=== PATIENT | male | born 1960 | race Two or more races ===

== ENCOUNTER 2017-04-19 23:43 | Inpatient (IN) | payer MEDICARE, OTHER ==
[~2017-04-19] VITALS: Ht 167.6 cm; Wt 72.1 kg
[~2017-04-19 23:43] MED LIST: ACETAMINOP500 MG/51 ORAL; ASPIR 8181 MG ORAL; ASPIRIN EC325 MG ORAL; ATORVASTATIN CA10 MG ORAL; AZITHROMYCIN500 M3 IVPB; BENADRYL ALLERG25 M1 PO; BENADRYL25 M3 PO; BETHANECHOL CHL25 MG ORAL; CALCIUM 500 MG1 EAC1 PO; CATAPRES0.2 MG ORAL; CELLCEPT250 MG ORAL; DIABETA2.5 MG ORAL; DILANTIN100 MG ORAL; DOCUSATE SODIU100 MG ORAL; FUROSEMIDE40 MG ORAL; GENGRAF PO; GENGRAF100 MG PO; GLYBURIDE5 MG PO; HYDRALAZINE HCL25 M1 ORAL; IMDUR30 MG ORAL; ISOSORBIDE MONO30 M1 PO; LACTULOSE20 GM/301 ORAL; LEVETIRACETAM250 MG PO; LIPITOR20 MG ORAL; LYRICA50 MG ORAL; LYRICA75 M1 ORAL; METOPROLOL TART50 M1 ORAL; NIFEDIPINE ER60 M3 ORAL; NORCO 5-325 TA1 EAC1 ORAL; NOVOLIN R100 UNIT/1 SUBQ; PERCOCET 5-3251 EACH ORAL; PLAVIX75 MG ORAL; POTASSIUM CHLO20 ME3 PO; PREDNISONE2.5 MG ORAL; PREDNISONE20 M1 PO; PROSCAR5 MG ORAL; PROTONIX40 MG ORAL; RISPERIDONE1 MG ORAL; ROCEPHIN 11 GM/50 ML IVPB; TAMSULOSIN HCL0.4 MG ORAL; TRAMADOL HCL50 MG ORAL; TYLENOL650 MG/20. ORAL; ULORIC40 MG ORAL; XARELTO10 MG ORAL
[2017-04-19 23:45] VITALS: BP 138/75
[2017-04-20] VITALS (8 sets, daily range): BP systolic 100–151; BP diastolic 51–87
[2017-04-20 00:28] LABS: ABG PCO2 35.4 mmHg (35.0-45.0)
[2017-04-20 00:29] LABS: ABG ALLEN TEST POSITIVE; ABG BASE EXCESS 1.9
[2017-04-20 01:22] LABS: APPEARANCE,URINE CLEAR; KETONES,URINE NEGATIVE (NEGATIVE); LEUKOCYTE ESTERASE ,URINE 2+ (NEGATIVE); NITRITE,URINE NEGATIVE (NEGATIVE); PH,URINE 5 (4.5-8.0); PROTEIN,URINE 1+ (NEGATIVE); UROBILINOGEN,URINE NORMAL MG/DL (0.0-1.0)
[2017-04-20 01:29] LABS: BASOPHILS % (AUTO) 0.7 % (0.0-2.0); LYMPHOCYTES % (AUTO) 10.7 % (20.0-45.0); MEAN CORPUSCULAR HEMOGLOBIN 29.3 PG (27.0-31.0); MEAN CORPUSCULAR VOLUME 89 FL (80-99); MEAN PLATELET VOLUME 12.2 FL (6.5-10.1); MONOCYTES % (AUTO) 5.8 % (1.0-10.0); NEUTROPHILS % (AUTO) 82.8 % (45.0-75.0); PLATELET COUNT 157 K/UL (150-450); RED BLOOD COUNT 4.66 M/UL (4.70-6.10); RED CELL DISTRIBUTION WIDTH 17.7 % (11.6-14.8); WHITE BLOOD COUNT 15.1 K/UL (4.8-10.8)
[2017-04-20 01:41] LABS: ALBUMIN/GLOBULIN RATIO 1.1 (1.0-2.7); CALCIUM 9.3 mg/dL (8.6-10.2); GLOMERULAR FILTRATION RATE 34.5 mL/min (>60); POTASSIUM 5.2 mEQ/L (3.4-4.9); TOTAL PROTEIN 8.1 g/dL (6.6-8.7)
[2017-04-20 01:43] LABS: TROPONIN I < 0.30 ng/mL (<=0.30)
[2017-04-20 01:44] LABS: BACTERIA,URINE FEW /HPF; RBC,URINE 0-2 /HPF (0 - 0); YEAST,URINE MANY /HPF
[2017-04-20 01:49] LABS: REFLEX LACTIC ACID YES OR NO YES
[2017-04-20] MEDS ORDERED: AMLODIPINE BESYL5 MG ORAL (01:49)
[2017-04-20] MEDS ORDERED: CYCLOSPORINE50 MG PO (01:49)
[2017-04-20] MEDS ORDERED: TUMS200 M1 PO (01:49)
[2017-04-20] MEDS ORDERED: LANTUS SOL100 UNIT/1 SUBQ (01:51)
[2017-04-20 01:52] LABS: CKMB 1.8 ng/mL (< 6.7)
[2017-04-20] MEDS ORDERED: HUMALOG100 UNIT/1 SUBQ (01:52)
[2017-04-20] MEDS ORDERED: LACTULOSE20 GM/301 ORAL (01:56)
[2017-04-20] MEDS ORDERED: LEVETIRACETAM250 MG PO (01:56)
[2017-04-20] MEDS ORDERED: SEN-O-TAB8.6 MG ORAL (02:00)
[2017-04-20] MEDS ORDERED: URECHOLINE25 M1 ORAL (02:00)
[2017-04-20] MEDS ORDERED: Sodium Polystyrene Sulfonate 15gm Powder ORAL ONE (02:00)
[2017-04-20] MEDS ORDERED: RENVELA800 MG ORAL (02:00)
[2017-04-20] MEDS ORDERED: ACETAMINOPHEN325 M1 ORAL (02:01)
[2017-04-20] MEDS ORDERED: BISACODYL10 M1 RC (02:02)
[2017-04-20] MEDS ORDERED: DIPHENHYDRAMINE25 M1 ORAL (02:06)
[2017-04-20] MEDS ORDERED: MIRALAX17 GM ORAL (02:10)
[2017-04-20] MEDS ORDERED: SIMETHICONE80 MG ORAL (02:10)
--- NOTE | 2017-04-20 03:14 | Emergency Room Report ---
History of Present Illness General Chief Complaint: Dyspnea/Respdistress Source: Patient, Medical Record Present Illness HPI 48-year-old male presents ED for shortness of breath. Patient states he feels okay however EMS states that started tonight patient's family noticed increased work of breathing. O2 saturations were in the 80s. EMS noted crackles in both lung tellez. patient states he was recently treated for pneumonia. Denies any fevers or chills. Denies chest pain. No other aggravating or relieving factors. Denies any other associated symptoms Allergies: Coded Allergies: PENICILLINS (Unverified Allergy, Unknown, 04/17/16) Patient History Past Medical History: DM, HTN Past Surgical History: other - RLE amputation Pertinent Family History: none Social History: Denies: alcohol use, drug use, smoking Immunizations: UTD Reviewed Nursing Documentation: PMH: Agreed, PSxH: Agreed Nursing Documentation-PMH Past Medical History: No History, Except For Hx Cardiac Problems: Yes Hx Hypertension: Yes Hx Diabetes: Yes Hx Cancer: No Hx Gastrointestinal Problems: Yes - Amputed RLE Hx Neurological Problems: Yes Hx Seizures: Yes Hx Dizziness: Yes Hx Weakness: Yes Review of Systems All Other Systems: negative except mentioned in HPI Physical Exam Vital Signs Date Time Temp Pulse Resp B/P Pulse Ox O2 Delivery O2 Flow Rate FiO2 04/19/17 23:42 99.0 77 28 140/79 97 Non-Rebreather 15.0 Sp02 EP Interpretation: reviewed, normal General Appearance: no apparent distress, alert, GCS 15, non-toxic Head: normocephalic Eyes: bilateral eye PERRL, bilateral eye normal inspection ENT: normal ENT inspection Neck: normal inspection Respiratory: crackles Cardiovascular #1: regular rate, rhythm, no edema Gastrointestinal: normal inspection Rectal: deferred Genitourinary: no CVA tenderness Musculoskeletal: normal inspection Neurologic: alert, oriented x3, responsive, motor strength/tone normal, sensory intact, speech normal Psychiatric: normal inspection Skin: normal inspection Lymphatic: normal inspection Medical Decision Making Diagnostic Impression: Primary Impression: CHF exacerbation Qualified Codes: I50.9 - Heart failure, unspecified Additional Impressions: Renal insufficiency Hyperkalemia ER Course Hospital Course 56-year-old male presents ED complaining of shortness of breath, hypoxicon room air Differential diagnoses include: TN/unstable angina, contusion, muscle strain, PTX, rib fracture Clinical course Patient placed on stretcher. 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 After initial history and physical I ordered labs, EKG, chest x-ray labs reviewed- no leukocytosis, hemoglobin/hematocrit stable, BUN/creatinine elevated, troponins negative, BNP elevated, K 5.2 Chest x-ray- pulmonary congestion, cardiomegaly. ? infiltrate EKG - NSR, peaked twaves in anterior leads interpreted by me kayexelate given. Antibiotics given. Lasix given. Case discussed with Dr. Caal and he agreed to accept the patient to his service for further care and support I. I feel this is a highly complex case requiring extensive working including EKG/Rhythm strip, Xray/CT/US, Blood/urine lab work, repeat exams while in ED, and administration of strong opiates/narcotics for pain control, admission to hospital or close patient follow up. Diagnosis - CHF exacerbation, renal failuere, hyperkalemia admitted to telemetry in serious condition Labs Test 04/20/17 00:15 04/20/17 00:50 04/20/17 01:00 04/20/17 02:00 Arterial Blood pH 7.414 (7.350-7.450) Arterial Blood Partial Pressure CO2 35.4 mmHg (35.0-45.0) Arterial Blood Partial Pressure O2 82.8 mmHg (75.0-100.0) Arterial Blood HCO3 22.1 mmol/L (22.0-26.0) Arterial Blood Oxygen Saturation 95.5 % (92.0-98.0) Arterial Blood Base Excess 1.9 Shai Test Positive Urine Color Pale yellow Urine Appearance Clear Urine pH 5 (4.5-8.0) Urine Specific [place] 1.005 (1.005-1.035) Urine Protein 1+ (NEGATIVE) Urine Glucose (UA) Negative (NEGATIVE) Urine Ketones Negative (NEGATIVE) Urine Occult Blood Negative (NEGATIVE) Urine Nitrite Negative (NEGATIVE) Urine Bilirubin Negative (NEGATIVE) Urine Urobilinogen Normal MG/DL (0.0-1.0) Urine Leukocyte Esterase 2+ (NEGATIVE) Urine RBC 0-2 /HPF (0 - 0) Urine WBC 5-10 /HPF (0 - 0) Urine Squamous Epithelial Cells None /LPF (NONE/OCC) Urine Bacteria Few /HPF (NONE) Urine Yeast Many /HPF (NONE) White Blood Count 15.1 K/UL (4.8-10.8) Red Blood Count 4.66 M/UL (4.70-6.10) Hemoglobin 13.6 G/DL (14.2-18.0) Hematocrit 41.3 % (42.0-52.0) Mean Corpuscular Volume 89 FL (80-99) Mean Corpuscular Hemoglobin 29.3 PG (27.0-31.0) Mean Corpuscular Hemoglobin Concent 33.0 G/DL (32.0-36.0) Red Cell Distribution Width 17.7 % (11.6-14.8) Platelet Count 157 K/UL (150-450) Mean Platelet Volume 12.2 FL (6.5-10.1) Neutrophils (%) (Auto) 82.8 % (45.0-75.0) Lymphocytes (%) (Auto) 10.7 % (20.0-45.0) Monocytes (%) (Auto) 5.8 % (1.0-10.0) Eosinophils (%) (Auto) 0.0 % (0.0-3.0) Basophils (%) (Auto) 0.7 % (0.0-2.0) Sodium Level 134 mEQ/L (135-145) Potassium Level 5.2 mEQ/L (3.4-4.9) Chloride Level 94 mEQ/L (98-107) Carbon Dioxide Level 21 mEQ/L (20-30) Anion Gap 19 (5-15) Blood Urea Nitrogen 54 mg/dL (7-23) Creatinine 2.0 mg/dL (0.7-1.2) Estimat Glomerular Filtration Rate 34.5 mL/min (>60) Glucose Level 178 mg/dL (74-106) Lactic Acid Level 2.00 mmol/L (0.66-2.22) Calcium Level 9.3 mg/dL (8.6-10.2) Total Bilirubin 0.6 mg/dL (0.0-1.2) Aspartate Amino Transf (AST/SGOT) 18 U/L (5-40) Alanine Aminotransferase (ALT/SGPT) 9 U/L (3-41) Alkaline Phosphatase 83 U/L (40-129) Total Creatine Kinase 46 U/L (38-174) Creatine Kinase MB 1.8 ng/mL (< 6.7) Creatine Kinase MB Relative Index 3.9 Troponin I < 0.30 ng/mL (<=0.30) Pro-B-Type Natriuretic Peptide 74675 pg/mL (0-125) Total Protein 8.1 g/dL (6.6-8.7) Albumin 4.3 g/dL (3.5-5.2) Globulin 3.8 g/dL Albumin/Globulin Ratio 1.1 (1.0-2.7) EKG Diagnostic Results Rate: normal Rhythm: NSR ST Segments: other - peadked ASA given to the pt in ED: No Rhythm Strip Diag. Results EP Interpretation: yes Rhythm: NSR, no PVC's, no ectopy Chest X-Ray Diagnostic Results Chest X-Ray Ordered: Yes # of Views/Limited/Complete: 1 View EP Interpretation: Yes Interpretation: no pneumothorax, other - cardiomegaly. bilateral interstitial congestion. ? infiltrate Indication: Shortness of Breath Impression: Other - cardiomegaly. pulmonary congestion. infiltrate Interpreting ER Provider: Jmienez Rivero MD Last Vital Signs Date Time Temp Pulse Resp B/P Pulse Ox O2 Delivery O2 Flow Rate FiO2 04/20/17 01:15 99.0 77 28 140/79 98 Non-Rebreather 15.0 Status: improved Disposition: ADMITTED INPATIENT Condition: Serious Referrals: VICTOR MANUEL CAAL (PCP) JIMENEZ RIVERO M.D. Apr 20, 2017 03:14
--- NOTE | 2017-04-20 06:44 | Diagnostic Imaging Report ---
Indications: Shortness of breath Technique: Portable AP chest Findings: Comparison: 09/19/16 Cardiac silhouette remains enlarged. Pulmonary vascular redistribution, bilateral interstitial infiltrates have increased. Patchy ovular opacities have developed bilaterally. Blunting of the right costophrenic angle suggesting small pleural effusion has developed. Left costophrenic angle excluded from image. IMPRESSION: Substantial worsening of bilateral congestive changes Superimposed pneumonia not excludable
[2017-04-20] MEDS: Heparin 5000 units/ml inj SUBQ SCH ×2 (09:53→20:39)
[2017-04-20] MEDS: NovoLOG Insulin Flexpen SUBQ SCH ×4 (11:30→23:23)
[2017-04-20] MEDS ORDERED: Acetaminophen 650mg/20.3ml ORAL PRN (13:00)
[2017-04-20] MEDS: Aspirin EC 81mg tab ORAL SCH (14:34)
[2017-04-20] MEDS: PredniSONE 5mg tab ORAL SCH (14:35)
[2017-04-20] MEDS: Imdur 30mg tab ORAL SCH (14:35)
[2017-04-20] MEDS: Bethanechol 25mg Tab ORAL SCH ×2 (14:35→18:11)
[2017-04-20] MEDS: Cefepime HCl 1 GM in D5W 55 ML IVPB SCH (14:36)
[2017-04-20] MEDS: Xarelto 10mg tab ORAL SCH (14:51)
[2017-04-20] MEDS: Docusate 100mg cap ORAL SCH ×2 (15:08→18:11)
[2017-04-20] MEDS ORDERED: Vancomycin 1gm/D5W 275ml IVPB SCH ×2 (16:00)
--- NOTE | 2017-04-20 16:30 | Consultation ---
DATE OF CONSULTATION: 04/20/2017 NEPHROLOGY CONSULTATION CONSULTING PHYSICIAN: Moise Blanc M.D. REFERRING PHYSICIAN: Osmani Caal M.D. REASON FOR CONSULTATION: I am asked to evaluate this patient, a 56-year-old man, with end-stage renal disease, kidney transplant, presents now with CHF. HISTORY OF PRESENT ILLNESS: The patient has had a kidney transplant in 1998 with stable renal function. He presents with increasing shortness of breath and x-ray evidence of CHF. He has had multiple hospitalizations for CHF, pneumonia, and urinary tract infections. He has had a chronic indwelling Gutierrez for urinary retention and neurogenic bladder. There is a history of peripheral vascular disease, right below-knee amputation, prior CVAs, and seizures. ALLERGIES: Penicillin. HABITS: He is a former smoker and occasional alcohol drinker, quit many years ago. MEDICATIONS AT HOME: Amlodipine 5 mg daily, aspirin 81 mg daily, calcium carbonate 1 tablet daily, cyclosporine 75 mg every 12 hours, DSS 100 mg b.i.d., finasteride 5 mg daily, Lantus prior was on 9 units daily, lispro sliding scale, lactobacillus 1 capsule b.i.d., lactulose 20 g 3 times a day, Keppra 500 mg 2 times a day, Metoprolol-XL 25 mg daily, Protonix 40 mg daily, pravastatin 20 mg daily, prednisone 5 mg daily, pregabalin 50 mg b.i.d., senna 2 tablets daily, sevelamer 800 mg t.i.d., tamsulosin 0.4 mg daily, Urecholine 25 mg 3 times a day, Tylenol p.r.n., bisacodyl p.r.n., Benadryl p.r.n., hydralazine 25 mg every 4 hours for elevated blood pressure, MiraLax p.r.n., and simethicone p.r.n. PAST SURGERIES: Kidney transplant, prior hemodialysis access, right below-knee amputation, and amputations of toes on the left foot. SYSTEM REVIEW: HEAD EYES, EARS, NOSE, AND THROAT: Vision and hearing are good. ENDOCRINE: Long-standing diabetes. No thyroid disease. PULMONARY: History of COPD and pulmonary infections. CARDIAC: History of diastolic congestive heart failure. He has had elevated troponin and prior admissions. He is not complaining of chest pain. GASTROINTESTINAL: History of gastritis in the past. No current nausea or vomiting. GENITOURINARY: He has had urinary retention. NEUROLOGIC: History of CVA and history of seizures. PHYSICAL EXAMINATION: GENERAL: The patient is lying in bed, in no acute distress. VITAL SIGNS: The current vital signs as follows. Temperature 97.2, pulse 104, respirations 19, blood pressure 100/51, and O2 saturation is 99% on 2 L. HEAD, EYES, EARS, NOSE, AND THROAT: There is mild periorbital edema. Sclerae nonicteric. Oral mucosa moist. NECK: No adenopathy. LUNGS: Diminished breath sounds at the bases. HEART: Rhythm is regular. I hear no murmur. ABDOMEN: Soft. No organomegaly or masses. The kidney transplant is nontender. GENITOURINARY: Gutierrez catheter is in place. Penis and testes normal. EXTREMITIES: No edema. There is a right below-knee amputation. NEUROLOGIC: He is alert and responsive. Ocular motions are intact in all directions. Smile is symmetric. Tongue is midline. He moves all extremities. PERTINENT LABORATORIES: White count 15.1, hemoglobin 13.6. Sodium 134, potassium 5.2, chloride 94, CO2 21, BUN 54, creatinine 2, lactic acid 2.0 and 1.3. Troponin less than 0.3. BNP is 16,793. IMPRESSION: 1. Kidney transplant status. 2. Congestive heart failure, acute upon chronic with diastolic dysfunction. 3. Chronic obstructive pulmonary disease. 4. Insulin-dependent diabetes. 5. Leukocytosis, possible underlying pulmonary infection. 6. Elevated BUN and creatinine, likely chronic kidney disease from chronic transplant nephropathy. Left is somewhat higher than on prior admission. Need to be monitored closely. PLAN: We will continue his transplant medications. Watch closely in view of his comorbidities and the diuresis, which may cause some worsening of renal function. Moise Blanc M.D. DR: BRISA JOB#: [id number] CC:
[2017-04-20] MEDS ORDERED: Metoprolol 25mg tab ORAL SCH (18:00)
[2017-04-20] MEDS: Bactrim DS (160mg/800mg) tab ORAL SCH (18:10)
[2017-04-20] MEDS: Lyrica 50mg cap ORAL SCH (18:11)
[2017-04-20] MEDS: cycloSPORINE 25mg cap ORAL SCH (18:34)
[2017-04-20] MEDS: Tamsulosin 0.4mg cap ORAL SCH (20:37)
[2017-04-20] MEDS: Levemir Flexpen SUBQ SCH (20:40)
--- NOTE | 2017-04-20 21:45 | History and Physical Report ---
DATE OF ADMISSION: 04/20/2017 CHIEF COMPLAINT: Respiratory failure, pneumonia. HISTORY OF PRESENT ILLNESS: The patient is a pleasant 48-year-old male. He has a history of kidney transplant, hypertension, diabetes, and DVT. He has history of peripheral artery disease, status post BKA. He was brought in by home with complaints of sudden-onset shortness of breath. On evaluation in emergency room, the patient had x-ray evidence of congestive heart failure exacerbation. He was having markedly elevated BNP. He was placed on BiPAP and is now admitted for further evaluation and care. The patient denies any medication or dietary noncompliance. No fevers or chills. He denies any cough or ill contacts. PAST MEDICAL HISTORY: As above. PAST SURGICAL HISTORY: BKA, kidney transplant. CURRENT MEDICATIONS: Reconciled and reviewed. ALLERGIES: Penicillin. FAMILY HISTORY: Noncontributory. SOCIAL HISTORY: There is no known history of tobacco, ethanol, or drugs. REVIEW OF SYSTEMS: General: No fever or chills. HEENT: No headaches or visual changes. Cardiopulmonary: No chest pain. Positive shortness of breath. No cough. Gastrointestinal: No nausea or vomiting. Genitourinary: No urgency or frequency. Musculoskeletal: No joint pain or swelling. Neurologic: No evidence of seizures. PHYSICAL EXAMINATION: VITAL SIGNS: Temperature 97.2, respiratory rate of 19, blood pressure 100/51. GENERAL: The patient is a well-developed male, in no apparent distress. He is awake, alert, and oriented x4. HEENT: Pupils are equal, round, and reactive to light. Oropharynx clear. NECK: Supple. HEART: Regular rate and rhythm. LUNGS: Significant bibasilar rales. ABDOMEN: Soft, nontender, and nondistended. EXTREMITIES: Without clubbing, cyanosis, or edema. LABORATORY DATA: White count 29795, hemoglobin 13, hematocrit 41, platelets 157. Sodium 134, potassium 5.2, chloride 94, bicarbonate 21, BUN 54, creatinine was 2. BNP was 16,000. ASSESSMENT: This is an elderly male with multiple medical problems: 1. Congestive heart failure exacerbation/pulmonary edema. 2. Kidney transplant. 3. Hypertension. 4. Diabetes. 5. History of seizure disorder. 6. History of deep venous thrombosis. 7. History of below knee amputation. PLAN: 1. Diuresis. 2. Monitor renal function. 3. Renal, Cardiology, Pulmonary, and Infectious Disease consultation was obtained. 4. Empiric antibiotics until pneumonia is ruled out. 5. We will continue outpatient seizure regimen. 6. Continue current cardiac regimen. Osmani Mary Caal DR: JOHN JOB#: [id number] CC:
[2017-04-20] MEDS ORDERED: Metoprolol 5mg/5ml Inj IVPB SCH (23:00)
[2017-04-21] VITALS: BP 120/75
--- NOTE | 2017-04-21 | Consultation ---
DATE OF CONSULTATION: CARDIOLOGY CONSULTATION CONSULTING PHYSICIAN: Armando Lerma M.D. REQUESTING PHYSICIAN: Osmani Caal M.D. REASON: Atrial fibrillation with rapid ventricular response. HISTORY OF PRESENT ILLNESS: This is a 56-year-old male with a known history of hypertensive and ischemic cardiomyopathy. He is status post renal transplant and has presented to the emergency room early this morning with shortness of breath that was noted to be due to acute congestive heart failure. He was admitted to the hospital, started on diuretics and improved. This evening, he developed asymptomatic atrial fibrillation with a rapid ventricular response. According to prior records, he does have a prior history of atrial fibrillation. PAST MEDICAL HISTORY: Includes hypertension, type 2 diabetes mellitus, coronary atherosclerosis, renal transplant, peripheral artery disease, right BKA, history of DVT, seizure disorder, cerebrovascular atherosclerosis, and chronic kidney disease. ALLERGIES: Penicillin. CURRENT MEDICATIONS: Reviewed and reconciled. SOCIAL HISTORY: No record of smoking, alcohol, or substance abuse. FAMILY HISTORY: Notable for diabetes mellitus in most of his first-degree left relative. REVIEW OF SYSTEMS: No fevers or chills. No cough or sputum production. No history of retinopathy. No recent seizure. He is on antiseizure therapy. There is no history of prostate cancer. He does have some arthritic pain in his lower back. He has a right BKA. His most recent echocardiogram within the last three months revealed normal ejection fraction, concentric hypertrophy, and a diastolic relaxation abnormality. There is no history of asthma. He is on anticoagulation with Rivaroxaban for DVT. PHYSICAL EXAMINATION: VITAL SIGNS: Afebrile, blood pressure ranging from 100/51 to 148/91, heart rate now 128, and respiratory rate 20. HEENT: Normocephalic and atraumatic. Conjunctivae pink. Oropharynx clear. NECK: Supple. Jugular venous pressure elevated. Carotid upstrokes without delay. LUNGS: Bilateral rales. CARDIAC: Irregularly irregular. Rapid rate. Normal S1, S2. A 1/6 early systolic apical murmur. ABDOMEN: Soft and nontender. EXTREMITIES: No clubbing or cyanosis. No edema. Right stump clean and dry. LABORATORY AND DIAGNOSTIC DATA: Pro-natriuretic peptide is over 16,000. Troponin negative. Lactic acid normal. BUN 54, creatinine 2. Sodium 134, potassium 5.2, bicarbonate 21. Albumin 4.3. White count 15.1 and hemoglobin 13.6. Chest x-ray with pulmonary venous congestion and possible associated pneumonitis. IMPRESSION: 1. Paroxysmal atrial fibrillation with rapid ventricular response, acute on chronic diastolic congestive heart failure. 2. Possible pneumonia, healthcare acquired and right [id number] amputation with severe peripheral artery disease. 3. Cerebrovascular disease with seizure disorder. 4. Type 2 diabetes mellitus with multiple complications. 5. History of renal transplant, now with acute on chronic kidney insufficiency. PLAN: 1. Continue full anticoagulation with Rivaroxaban. 2. Continue oral metoprolol with bolus at this time of intravenous dose for rate control and adequate additional therapy will be given. 3. Continue diuresis. 4. Followup electrolytes. 5. Monitor renal function and volume status. 6. Condition remains serious with guarded prognosis. Armando Lerma M.D. DR: TAMELA JOB#: [id number] CC:
[2017-04-21 04:00] VITALS: BP 121/70
[2017-04-21] MEDS: NovoLOG Insulin Flexpen SUBQ SCH ×5 (05:50→22:25)
[2017-04-21 08:00] VITALS: BP 113/68
[2017-04-21 08:23] LABS: MAGNESIUM 2.5 mg/dL (1.7-2.5)
--- NOTE | 2017-04-21 09:01 | General Progress Note ---
Assessment/Plan Problem List: (1) Respiratory distress ICD Codes: R06.00 - Dyspnea, unspecified SNOMED: 428285194 (2) CHF (congestive heart failure) ICD Codes: I50.9 - Heart failure, unspecified SNOMED: 61375754 (3) Renal insufficiency ICD Codes: N28.9 - Disorder of kidney and ureter, unspecified SNOMED: 800060273 (4) Hypertension ICD Codes: I10 - Essential (primary) hypertension SNOMED: 63916828 (5) Diabetes mellitus out of control ICD Codes: E11.65 - Diabetes mellitus out of control SNOMED: 020580931 (6) PNA (pneumonia) ICD Codes: J18.9 - Pneumonia, unspecified organism SNOMED: 690217146 (7) Dyspnea ICD Codes: R06.00 - Dyspnea SNOMED: 640998165 Status: stable, progressing Assessment/Plan iv diuresis monitor renal fxn iv abx ID eval called monitor cxr resp care transplant rx per renal Subjective ROS Limited/Unobtainable: No Constitutional: Reports: malaise, weakness HEENT: Reports: no symptoms Cardiovascular: Reports: no symptoms Respiratory: Reports: shortness of breath Gastrointestinal/Abdominal: Reports: no symptoms Genitourinary: Reports: no symptoms Neurologic/Psychiatric: Reports: seizure Endocrine: Reports: no symptoms Hematologic/Lymphatic: Reports: anemia Allergies: Coded Allergies: PENICILLINS (Unverified Allergy, Unknown, 04/17/16) All Systems: reviewed and negative except above Subjective less sob. remains on iv abx. no fevers. labs today pending. on diuretics and iv abx. +afib last night. converted to sinus this am. on xarelto. no bleeding Objective Last 24 Hour Vital Signs Date Time Temp Pulse Resp B/P Pulse Ox O2 Delivery O2 Flow Rate FiO2 04/21/17 08:00 97.2 73 18 113/68 95 Room Air 04/21/17 04:35 107 04/21/17 04:00 98.0 114 21 121/70 95 Room Air 04/21/17 00:00 97.7 126 19 120/75 97 Nasal Cannula 2.0 04/21/17 00:00 108 04/20/17 23:16 113 132/73 04/20/17 20:00 74 04/20/17 20:00 98.6 109 19 140/66 98 Nasal Cannula 2.0 04/20/17 18:09 82 126/70 04/20/17 16:00 98.1 76 17 134/66 95 Nasal Cannula 22.0 75 04/20/17 16:00 76 04/20/17 14:35 121/64 04/20/17 14:34 77 121/64 04/20/17 13:37 97.2 104 19 100/51 99 Nasal Cannula 2.0 104 04/20/17 12:00 98.1 85 18 111/54 99 Non-Rebreather 80 04/20/17 12:00 78 04/20/17 09:51 136/79 Intake and Output 04/20/17 04/21/17 19:00 07:00 Intake Total 870 ml 183.708 ml Output Total 800 ml 400 ml Balance 70 ml -216.292 ml Intake Oral 760 ml IV Total 110 ml 183.708 ml Output Urine Total 800 ml 400 ml Laboratory Tests 04/21/17 07:30: Sodium Level [Pending], Potassium Level [Pending], Chloride Level [Pending], Carbon Dioxide Level [Pending], Blood Urea Nitrogen [Pending], Creatinine [ Pending], Estimat Glomerular Filtration Rate [Pending], Glucose Level [Pending] , Calcium Level [Pending], Magnesium Level 2.5, Pro-B-Type Natriuretic Peptide 9988H Height (Feet): 5 Height (Inches): 6.00 Weight (Pounds): 161 General Appearance: WD/WN, alert Neck: supple Cardiovascular: normal rate, regular rhythm Respiratory/Chest: crackles/rales, rhonchi - bilaterally Abdomen: normal bowel sounds, non tender, soft, no organomegaly Edema: no edema noted Arm (L), no edema noted Arm (R), no edema noted Leg (L), no edema noted Leg (R), no edema noted Pedal (L), no edema noted Pedal (R), no edema noted Generalized Neurologic: tax processor II-XII grossly normal, no motor/sensory deficits, abnormal gait , alert, oriented x 3, responsive, normal mood/affect Skin: normal pigmentation VICTOR MANUEL DO Apr 21, 2017 09:01
[2017-04-21 09:05] LABS: CALCIUM 8.7 mg/dL (8.6-10.2); CREATININE 2.1 mg/dL (0.7-1.2); GLOMERULAR FILTRATION RATE 32.6 mL/min (>60); POTASSIUM 3.7 mEQ/L (3.4-4.9)
[2017-04-21] MEDS: Metoprolol 25mg tab ORAL SCH ×2 (09:22→17:23)
[2017-04-21] MEDS: Aspirin EC 81mg tab ORAL SCH (09:22)
[2017-04-21] MEDS: PredniSONE 5mg tab ORAL SCH (09:22)
[2017-04-21] MEDS: Xarelto 10mg tab ORAL SCH (09:22)
[2017-04-21] MEDS: Lyrica 50mg cap ORAL SCH ×2 (09:23→17:26)
[2017-04-21] MEDS: Bactrim DS (160mg/800mg) tab ORAL SCH (09:23)
[2017-04-21] MEDS: cycloSPORINE 25mg cap ORAL SCH ×2 (09:23→17:23)
[2017-04-21] MEDS: Bethanechol 25mg Tab ORAL SCH ×3 (09:23→17:24)
[2017-04-21] MEDS: Docusate 100mg cap ORAL SCH ×2 (09:23→17:27)
[2017-04-21] MEDS: Imdur 30mg tab ORAL SCH (09:25)
[2017-04-21 12:00] VITALS: BP 107/60
[2017-04-21] MEDS: Cefepime HCl 1 GM in D5W 55 ML IVPB SCH (13:23)
--- NOTE | 2017-04-21 15:42 | Nephrology Progress Note ---
Assessment/Plan Problem List: (1) DM renal manif type II (2) CHF exacerbation (3) Respiratory distress (4) Status post kidney transplant (5) CKD stage 3 secondary to diabetes Plan continue diuresis and cardiac care, expect mild increase bun and creatinine with diuresis Subjective Constitutional: Reports: weakness HEENT: Reports: no symptoms Genitourinary: Reports: incontinence, no symptoms Neurologic/Psychiatric: Reports: no symptoms Objective Objective Last 24 Hour Vital Signs Date Time Temp Pulse Resp B/P Pulse Ox O2 Delivery O2 Flow Rate FiO2 04/21/17 13:31 63 04/21/17 12:03 61 04/21/17 12:00 61 18 107/60 96 Room Air 04/21/17 09:25 113/68 04/21/17 09:23 73 113/68 04/21/17 09:22 73 113/68 04/21/17 08:29 94 04/21/17 08:00 97.2 73 18 113/68 95 Room Air 04/21/17 07:54 104 04/21/17 04:35 107 04/21/17 04:00 98.0 114 21 121/70 95 Room Air 04/21/17 00:00 97.7 126 19 120/75 97 Nasal Cannula 2.0 04/21/17 00:00 108 04/20/17 23:16 113 132/73 04/20/17 20:00 74 04/20/17 20:00 98.6 109 19 140/66 98 Nasal Cannula 2.0 04/20/17 18:09 82 126/70 04/20/17 16:00 98.1 76 17 134/66 95 Nasal Cannula 22.0 75 04/20/17 16:00 76 Intake and Output 04/20/17 04/21/17 19:00 07:00 Intake Total 870 ml 183.708 ml Output Total 800 ml 400 ml Balance 70 ml -216.292 ml Intake Oral 760 ml IV Total 110 ml 183.708 ml Output Urine Total 800 ml 400 ml Laboratory Tests 04/21/17 07:30: Sodium Level 139, Potassium Level 3.7, Chloride Level 97L, Carbon Dioxide Level 24, Anion Gap 18H, Blood Urea Nitrogen 57H, Creatinine 2.1H, Estimat Glomerular Filtration Rate 32.6, Glucose Level 242H, Calcium Level 8.7, Magnesium Level 2.5 , Pro-B-Type Natriuretic Peptide 9988H Height (Feet): 5 Height (Inches): 6.00 Weight (Pounds): 161 General Appearance: no apparent distress EENT: normal ENT inspection Neck: normal alignment Cardiovascular: regular rhythm Respiratory/Chest: lungs clear Abdomen: no organomegaly Extremities: other - r bka no edema UZIEL BEE Apr 21, 2017 15:42
[2017-04-21 16:00] VITALS: BP 105/58
[2017-04-21 20:00] VITALS: BP 101/60
[2017-04-21] MEDS: Tamsulosin 0.4mg cap ORAL SCH (20:50)
--- NOTE | 2017-04-21 21:00 | Consultation ---
DATE OF CONSULTATION: 04/21/2017 PRIMARY ATTENDING PHYSICIAN: Osmani Caal M.D. REASON FOR CONSULTATION: Pneumonia. HISTORY OF PRESENT ILLNESS: This is a 56-year-old male with multiple medical problems, admitted yesterday, because of shortness of breath and decreasing O2 saturation. The patient is status post kidney transplant in 1998. Denies any fever. He was found to have congestive heart failure with atrial fibrillation and rapid ventricular rate at the time of admission. He had leukocytosis. PAST MEDICAL HISTORY: Diabetes mellitus type 2, hypertension, cerebrovascular disease, status post right lower extremity amputation, status post kidney transplant, and congestive heart failure. MEDICATIONS: Getting metoprolol, atorvastatin, Senokot, Flomax, Levemir insulin, Keppra, Lyrica, cyclosporine, Bactrim Double Strength, vancomycin, , Xarelto, cefepime, Tylenol, , finasteride, Imdur, sevelamer, prednisone, Lasix, and insulin. ALLERGIES: Allergic to penicillin. SOCIAL HISTORY: Lives at home with sister. No history of alcohol or drug abuse. He is smoking. He is single. REVIEW OF SYSTEMS: Denies any fever, chills, coughing, and shortness of breath, but shortness of breath is improving, coughing is nonproductive. No nausea. No vomiting. No diarrhea. The patient has chronic Gutierrez catheterization. PHYSICAL EXAMINATION: GENERAL APPEARANCE: He is in no acute distress. Seems to be thin. VITAL SIGNS: Temperature 97.2 degrees, pulse 73, and blood pressure 113/68. HEAD AND NECK: Saxon conjunctiva. No oral lesion. HEART: Normal rate. LUNGS: Clear. ABDOMEN: Soft. GENITOURINARY: He has Gutierrez catheter. EXTREMITIES: He has right lower extremity below knee amputation. NEUROLOGIC: Awake, alert, and oriented. LABORATORY AND DIAGNOSTIC DATA: Chest x-ray showed bilateral congestive changes. Pneumonia was not excludable. IMPRESSION: 1. Pneumonia. The patient has history of renal transplant and immune deficient. 2. Penicillin allergy. 3. Diabetes mellitus. 4. Hypertension. 5. Chronic kidney disease, likely has congestive heart failure exacerbation and atrial fibrillation. RECOMMENDATIONS: Continue cefepime. Discontinue IV vancomycin with replace the dose of Bactrim to once a day for PCP prophylaxis. I thank, Dr. Caal, for involving me in the care of this patient. Lauri Coronado M.D. DR: DAVID JOB#: [id number] CC:
[2017-04-21] MEDS: Levemir Flexpen SUBQ SCH (22:17)
--- NOTE | 2017-04-21 22:30 | Progress Note ---
DATE: 04/21/2017 CARDIOLOGY PROGRESS NOTE SUBJECTIVE: The patient has less shortness of breath. He is on IV diuretic therapy. He is also on IV antibiotics. He is afebrile. The patient developed rapid atrial fibrillation. Last evening, he was seen by me at bedside, IV metoprolol was given. The patient's rate was controlled. He was also continued on anticoagulation with Xarelto, which is on for prior DVT. He converted to sinus rhythm early this morning. Critical care time for those interventions 45 minutes. OBJECTIVE: VITAL SIGNS: Blood pressure 113/68, pulse 73, respiratory rate 18, and heart rate ranging from 70 to 110. LUNGS: Bilateral breath sounds. Few rales. HEART: Regular rhythm and rate. Normal S1 and S2 with a fourth heart sound. ABDOMEN: Soft and nontender. EXTREMITIES: Right BKA. No edema. IMPRESSION: 1. Paroxysmal atrial fibrillation with rapid ventricular response. 2. Acute on chronic diastolic congestive heart failure. 3. Malignant range hypertension, now controlled. 4. Chronic kidney disease status post renal transplant. 5. Healthcare-acquired pneumonia. PLAN: 1. Continue advanced dose of beta-mello. 2. Continue diuresis. 3. Monitor volume status and cardiorenal parameters closely. 4. Antimicrobials. 5. Respiratory hygiene. 6. Skin care. 7. Continue full anticoagulation for treatment of prior DVT as well as cardioembolic prophylaxis in the event of recurring atrial fibrillation. Armando Lerma M.D. DR: EARL JOB#: [id number] CC:
[2017-04-22] VITALS: BP 132/53
[2017-04-22 04:00] VITALS: BP 129/72
[2017-04-22 07:25] LABS: BASOPHILS % (AUTO) 0.6 % (0.0-2.0); EOSINOPHILS % (AUTO) 1.3 % (0.0-3.0); LYMPHOCYTES % (AUTO) 18.9 % (20.0-45.0); MEAN CORPUSCULAR HEMOGLOBIN 29.5 PG (27.0-31.0); MEAN CORPUSCULAR HGB CONC 33.3 G/DL (32.0-36.0); MEAN CORPUSCULAR VOLUME 89 FL (80-99); MEAN PLATELET VOLUME 11.2 FL (6.5-10.1); MONOCYTES % (AUTO) 6.7 % (1.0-10.0); NEUTROPHILS % (AUTO) 72.5 % (45.0-75.0); PLATELET COUNT 131 K/UL (150-450); RED BLOOD COUNT 3.29 M/UL (4.70-6.10); RED CELL DISTRIBUTION WIDTH 17.1 % (11.6-14.8); WHITE BLOOD COUNT 6.1 K/UL (4.8-10.8)
[2017-04-22 07:58] LABS: CALCIUM 8.8 mg/dL (8.6-10.2); CREATININE 2.4 mg/dL (0.7-1.2); GLOMERULAR FILTRATION RATE 27.9 mL/min (>60); POTASSIUM 4.1 mEQ/L (3.4-4.9); TOTAL PROTEIN 6.6 g/dL (6.6-8.7)
[2017-04-22] MEDS: NovoLOG Insulin Flexpen SUBQ SCH ×4 (07:58→20:28)
[2017-04-22 08:02] VITALS: BP 139/79
[2017-04-22] MEDS: cycloSPORINE 25mg cap ORAL SCH ×2 (08:22→17:37)
[2017-04-22] MEDS: Docusate 100mg cap ORAL SCH ×2 (08:23→17:37)
[2017-04-22] MEDS: Metoprolol 25mg tab ORAL SCH ×2 (08:23→17:36)
[2017-04-22] MEDS: Bethanechol 25mg Tab ORAL SCH ×3 (08:23→17:37)
[2017-04-22] MEDS: Xarelto 10mg tab ORAL SCH (08:24)
[2017-04-22] MEDS: Bactrim SS Tab ORAL SCH (08:24)
[2017-04-22] MEDS: Imdur 30mg tab ORAL SCH (08:25)
[2017-04-22] MEDS: Aspirin EC 81mg tab ORAL SCH (08:25)
[2017-04-22] MEDS: PredniSONE 5mg tab ORAL SCH (08:26)
[2017-04-22] MEDS: Lyrica 50mg cap ORAL SCH ×2 (08:28→17:36)
--- NOTE | 2017-04-22 10:13 | Infectious Diseases Prog Note ---
Assessment/Plan Assessment/Plan A; Pneumonia Fungal UTI Acute renal failure/ CKD DM s/p renal transplant P; Continue Cefepime & Bactrim prophylaxis Add Fluconazole Subjective ROS Limited/Unobtainable: No Constitutional: Reports: no symptoms HEENT: Reports: no symptoms Respiratory: Reports: dry cough Cardiovascular: Reports: no symptoms Gastrointestinal/Abdominal: Reports: no symptoms Genitourinary: Reports: no symptoms Allergies: Coded Allergies: PENICILLINS (Unverified Allergy, Unknown, 04/17/16) Objective Vital Signs Last 24 Hour Vital Signs Date Time Temp Pulse Resp B/P Pulse Ox O2 Delivery O2 Flow Rate FiO2 04/22/17 08:25 139/79 04/22/17 08:25 69 139/79 04/22/17 08:23 69 139/79 04/22/17 08:02 97.3 69 20 139/79 96 Room Air 04/22/17 08:00 69 04/22/17 04:00 66 04/22/17 04:00 97.3 70 20 129/72 97 Room Air 04/22/17 00:00 66 04/22/17 00:00 98.8 69 20 132/53 96 Room Air 04/21/17 20:00 64 04/21/17 20:00 97.0 64 22 101/60 95 Room Air 04/21/17 17:23 82 105/58 04/21/17 16:00 82 18 105/58 96 Room Air 04/21/17 15:46 105 04/21/17 13:31 63 04/21/17 12:03 61 04/21/17 12:00 61 18 107/60 96 Room Air Height (Feet): 5 Height (Inches): 6.00 Weight (Pounds): 161 General Appearance: no acute distress HEENT: mucous membranes moist Respiratory/Chest: lungs clear Cardiovascular: normal rate Abdomen: soft, non tender Genitourinary: other - Gutierrez catheter Neurologic/Psychiatric: alert, oriented x 3, responsive Microbiology Date/Time Source Procedure Growth Status 04/20/17 01:05 Blood Blood Culture - Preliminary NO GROWTH AFTER 48 HOURS Resulted 04/20/17 01:00 Blood Blood Culture - Preliminary NO GROWTH AFTER 48 HOURS Resulted 04/20/17 02:00 Nasal Nares MRSA Culture - Final NO METHICILLIN RESISTANT STAPH AUREUS... Complete 04/20/17 23:40 Indwelling Cath Urine Culture - Preliminary Resulted 04/20/17 00:50 Urine,Clean Catch Urine Culture - Preliminary YEAST Resulted Laboratory Tests Test 04/22/17 06:10 White Blood Count 6.1 K/UL (4.8-10.8) Red Blood Count 3.29 M/UL (4.70-6.10) L Hemoglobin 9.7 G/DL (14.2-18.0) L Hematocrit 29.2 % (42.0-52.0) L Mean Corpuscular Volume 89 FL (80-99) Mean Corpuscular Hemoglobin 29.5 PG (27.0-31.0) Mean Corpuscular Hemoglobin Concent 33.3 G/DL (32.0-36.0) Red Cell Distribution Width 17.1 % (11.6-14.8) H Platelet Count 131 K/UL (150-450) L Mean Platelet Volume 11.2 FL (6.5-10.1) H Neutrophils (%) (Auto) 72.5 % (45.0-75.0) Lymphocytes (%) (Auto) 18.9 % (20.0-45.0) L Monocytes (%) (Auto) 6.7 % (1.0-10.0) Eosinophils (%) (Auto) 1.3 % (0.0-3.0) Basophils (%) (Auto) 0.6 % (0.0-2.0) Sodium Level 140 mEQ/L (135-145) Potassium Level 4.1 mEQ/L (3.4-4.9) Chloride Level 98 mEQ/L (98-107) Carbon Dioxide Level 25 mEQ/L (20-30) Anion Gap 17 (5-15) H Blood Urea Nitrogen 61 mg/dL (7-23) H Creatinine 2.4 mg/dL (0.7-1.2) H Estimat Glomerular Filtration Rate 27.9 mL/min (>60) Glucose Level 257 mg/dL (74-106) H Calcium Level 8.8 mg/dL (8.6-10.2) Total Bilirubin 0.4 mg/dL (0.0-1.2) Aspartate Amino Transf (AST/SGOT) 12 U/L (5-40) Alanine Aminotransferase (ALT/SGPT) 7 U/L (3-41) Alkaline Phosphatase 63 U/L (40-129) Total Protein 6.6 g/dL (6.6-8.7) Albumin 3.3 g/dL (3.5-5.2) L Globulin 3.3 g/dL Albumin/Globulin Ratio 1.0 (1.0-2.7) Cyclosporine (by HPLC) Pending Current Medications Medications (Trade) Dose Ordered Sig/Benita Route PRN Reason Start Time Stop Time Status Last Admin Dose Admin Acetaminophen (Tylenol) 650 mg Q6H PRN ORAL Prn Headache/Temp > 101 04/20/17 13:00 05/20/17 12:59 Acetaminophen (Tylenol) 650 mg Q6H PRN ORAL fever 04/20/17 13:00 05/20/17 12:59 Amlodipine Besylate (Norvasc) 5 mg DAILY ORAL 04/20/17 13:00 05/20/17 12:59 04/22/17 08:25 Aspirin (Ecotrin) 81 mg DAILY ORAL 04/20/17 13:00 05/20/17 12:59 04/22/17 08:25 Atorvastatin Calcium (Lipitor) 10 mg BEDTIME ORAL 04/20/17 21:00 05/20/17 20:59 04/21/17 20:50 Bethanechol Chloride (Urecholine) 25 mg THREE TIMES A DAY ORAL 04/20/17 13:00 05/20/17 12:59 04/22/17 08:23 Cefepime HCl/ Dextrose (Maxipime/D5W) 55 ml @ 110 mls/hr Q24H IVPB 04/20/17 14:00 04/27/17 13:59 04/21/17 13:23 Cyclosporine (Neoral) 75 mg BID ORAL 04/20/17 18:00 05/20/17 17:59 04/22/17 08:22 Dextrose (Dextrose 50%) STAT PRN IV Hypoglycemia 04/20/17 05:30 05/20/17 05:29 Diphenhydramine HCl (Benadryl) 25 mg Q6H PRN ORAL Itching 04/20/17 14:00 05/20/17 13:59 Docusate Sodium (Colace) 100 mg BID ORAL 04/20/17 13:00 05/20/17 12:59 04/22/17 08:23 Finasteride (Proscar) 5 mg DAILY ORAL 04/20/17 13:00 05/20/17 12:59 04/22/17 08:24 Furosemide (Lasix) 40 mg DAILY IV 04/20/17 09:00 05/20/17 08:59 04/22/17 08:31 Insulin Aspart (NovoLOG) BEFORE MEALS AND HS SUBQ 04/20/17 06:30 05/20/17 06:29 04/22/17 07:58 Insulin Detemir (Levemir) 6 units BEDTIME SUBQ 04/20/17 21:00 05/20/17 20:59 04/21/17 22:17 Isosorbide Mononitrate (Imdur) 30 mg DAILY ORAL 04/20/17 13:00 05/20/17 12:59 04/22/17 08:25 Levetiracetam (Keppra) 500 mg BID ORAL 04/20/17 18:00 05/20/17 17:59 04/22/17 08:26 Metoprolol Tartrate (Lopressor) 50 mg BID ORAL 04/21/17 09:00 05/21/17 08:59 04/22/17 08:23 Prednisone 5 mg 5 mg DAILY ORAL 04/20/17 13:00 05/20/17 12:59 04/22/17 08:26 Pregabalin (Lyrica) 50 mg BID ORAL 04/20/17 18:00 05/20/17 17:59 04/22/17 08:28 Rivaroxaban (Xarelto) 20 mg DAILY ORAL 04/20/17 14:00 05/20/17 13:59 04/22/17 08:24 Sennosides (Senokot) 8.6 mg BEDTIME ORAL 04/20/17 21:00 05/20/17 20:59 04/21/17 20:50 Sevelamer Carbonate (Renvela) 800 mg THREE TIMES A DAY ORAL 04/20/17 13:00 05/20/17 12:59 04/22/17 08:24 Tamsulosin HCl (Flomax) 0.4 mg BEDTIME ORAL 04/20/17 21:00 05/20/17 20:59 04/21/17 20:50 Trimethoprim/ Sulfamethoxazole (Bactrim Single Strength) 1 ea DAILY ORAL 04/22/17 09:00 04/29/17 08:59 04/22/17 08:24 ARIANNA CAREY Apr 22, 2017 10:12
[2017-04-22 12:26] VITALS: BP 121/59
[2017-04-22] MEDS: Fluconazole 100mg tab ORAL SCH (12:49)
[2017-04-22] MEDS: Cefepime HCl 1 GM in D5W 55 ML IVPB SCH (14:20)
--- NOTE | 2017-04-22 14:33 | Nephrology Progress Note ---
Assessment/Plan Plan CHF - clinically better. CKD IV stable. s/p DD Kidney Tx - GFR Stable. Fasting CsA level P Subjective Subjective Less SOB. Objective Objective Last 24 Hour Vital Signs Date Time Temp Pulse Resp B/P Pulse Ox O2 Delivery O2 Flow Rate FiO2 04/22/17 12:26 67 18 121/59 91 Room Air 04/22/17 12:00 69 04/22/17 08:25 139/79 04/22/17 08:25 69 139/79 04/22/17 08:23 69 139/79 04/22/17 08:02 97.3 69 20 139/79 96 Room Air 04/22/17 08:00 69 04/22/17 04:00 66 04/22/17 04:00 97.3 70 20 129/72 97 Room Air 04/22/17 00:00 66 04/22/17 00:00 98.8 69 20 132/53 96 Room Air 04/21/17 20:00 64 04/21/17 20:00 97.0 64 22 101/60 95 Room Air 04/21/17 17:23 82 105/58 04/21/17 16:00 82 18 105/58 96 Room Air 04/21/17 15:46 105 Intake and Output 04/21/17 04/22/17 19:00 07:00 Intake Total 55 ml 150 ml Output Total 900 ml Balance 55 ml -750 ml Intake Oral 150 ml IV Total 55 ml Output Urine Total 900 ml # Bowel Movements 2 Laboratory Tests 04/22/17 06:10: White Blood Count 6.1, Red Blood Count 3.29L, Hemoglobin 9.7L, Hematocrit 29.2L , Mean Corpuscular Volume 89, Mean Corpuscular Hemoglobin 29.5, Mean Corpuscular Hemoglobin Concent 33.3, Red Cell Distribution Width 17.1H, Platelet Count 131L, Mean Platelet Volume 11.2H, Neutrophils (%) (Auto) 72.5, Lymphocytes (%) (Auto) 18.9L, Monocytes (%) (Auto) 6.7, Eosinophils (%) (Auto) 1.3, Basophils (%) (Auto) 0.6, Sodium Level 140, Potassium Level 4.1, Chloride Level 98, Carbon Dioxide Level 25, Anion Gap 17H, Blood Urea Nitrogen 61H, Creatinine 2.4H, Estimat Glomerular Filtration Rate 27.9, Glucose Level 257H, Calcium Level 8.8, Total Bilirubin 0.4, Aspartate Amino Transf (AST/SGOT) 12, Alanine Aminotransferase (ALT/SGPT) 7, Alkaline Phosphatase 63, Total Protein 6.6, Albumin 3.3L, Globulin 3.3, Albumin/Globulin Ratio 1.0, Cyclosporine (by HPLC) [Pending] Height (Feet): 5 Height (Inches): 6.00 Weight (Pounds): 161 Objective Cachectic Cv RR Lungs CTAP. Abd SNT. BS + E No cce. Rt. Bka stump clean. ARLENE ARMSTRONG Apr 22, 2017 14:33
[2017-04-22 16:15] VITALS: BP 138/78
[2017-04-22] MEDS ORDERED: NS 275ml ONE (17:37)
[2017-04-22] MEDS ORDERED: Tubing IV Secondary IV ONE (17:37)
[2017-04-22 20:00] VITALS: BP 139/77
[2017-04-22] MEDS: Tamsulosin 0.4mg cap ORAL SCH (20:25)
[2017-04-22] MEDS: Levemir Flexpen SUBQ SCH (20:27)
[2017-04-23] VITALS: BP 129/62
[2017-04-23] MEDS ORDERED: Levemir Flexpen SUBQ ONE
[2017-04-23] MEDS: Levemir Flexpen SUBQ SCH
--- NOTE | 2017-04-23 00:16 | Progress Note ---
DATE: 04/22/2017 CARDIOLOGY PROGRESS NOTE SUBJECTIVE: The patient feels better, less short of breath, still very weak from baseline and fatigued when mobilizing himself in the room. PHYSICAL EXAMINATION: VITAL SIGNS: Blood pressure 138/78, pulse 71, respiratory rate 20, and afebrile, room air oxygen saturation 91 to 95%. NECK: Supple. LUNGS: Few rales. CARDIAC: Regular rhythm rate. Normal S1 and S2 with a fourth heart sound. ABDOMEN: Soft. Gutierrez catheter in place. EXTREMITIES: No edema. Right BKA. LABORATORY DATA: BUN 61 and creatinine 2.4. Albumin 3.3. Potassium 4.1. White count 6.1, hemoglobin 9.7. IMPRESSION: 1. Acute on chronic diastolic congestive heart failure. 2. Ischemic cardiomyopathy. 3. History of renal transplant. 4. Acute on chronic kidney disease. 5. Pneumonia. 6. Hx acute DVT 7. Paroxysmal atrial fibrillation. PLAN: 1. Recheck radiograph of the chest. 2. Re-dose furosemide to maintenance dosing. 3. Continue full anticoagulation. 4. Adjust immunosuppressive therapy. 5. Continue beta mello therapy 5. Consider acute rehabilitation evaluation and discharge planning. Armando Lerma M.D. DR: Damian JOB#: [id number] CC: HELENA
[2017-04-23 04:00] VITALS: BP 130/69
[2017-04-23] MEDS: NovoLOG Insulin Flexpen SUBQ SCH ×3 (05:48→17:27)
[2017-04-23 08:04] VITALS: BP 138/75
--- NOTE | 2017-04-23 08:38 | Diagnostic Imaging Report ---
Indications: Chest pain Technique: Portable AP chest Findings: Comparison: 04/20/17 Inspiratory effort has improved. Cardiac silhouette remains enlarged. Diffuse bilateral mixed interstitial and alveolar infiltrates persist, alveolar components decreased in prominence. Mild blunting of right costophrenic angle suggesting pleural effusion persists. No new abnormality identified. IMPRESSION: Mild improvement in bilateral pulmonary infiltrates No other change from 3 days prior
[2017-04-23] MEDS: cycloSPORINE 25mg cap ORAL SCH ×2 (08:47→17:29)
[2017-04-23] MEDS: Lyrica 50mg cap ORAL SCH ×2 (08:47→17:29)
[2017-04-23] MEDS: Xarelto 10mg tab ORAL SCH (08:47)
[2017-04-23] MEDS: Imdur 30mg tab ORAL SCH (08:47)
[2017-04-23] MEDS: Docusate 100mg cap ORAL SCH ×2 (08:47→17:30)
[2017-04-23] MEDS: Bactrim SS Tab ORAL SCH (08:47)
[2017-04-23] MEDS: Aspirin EC 81mg tab ORAL SCH (08:47)
[2017-04-23] MEDS: PredniSONE 5mg tab ORAL SCH (08:48)
[2017-04-23] MEDS: Bethanechol 25mg Tab ORAL SCH (08:48)
[2017-04-23] MEDS: Fluconazole 100mg tab ORAL SCH (08:48)
[2017-04-23] MEDS: Metoprolol 25mg tab ORAL SCH ×2 (08:48→17:29)
[2017-04-23 10:03] LABS: BASOPHILS % (AUTO) 0.7 % (0.0-2.0); EOSINOPHILS % (AUTO) 1.4 % (0.0-3.0); LYMPHOCYTES % (AUTO) 21.8 % (20.0-45.0); MEAN CORPUSCULAR HEMOGLOBIN 28.2 PG (27.0-31.0); MEAN CORPUSCULAR HGB CONC 31.7 G/DL (32.0-36.0); MEAN CORPUSCULAR VOLUME 89 FL (80-99); MEAN PLATELET VOLUME 9.8 FL (6.5-10.1); MONOCYTES % (AUTO) 7.7 % (1.0-10.0); NEUTROPHILS % (AUTO) 68.4 % (45.0-75.0); PLATELET COUNT 141 K/UL (150-450); RED BLOOD COUNT 3.51 M/UL (4.70-6.10); RED CELL DISTRIBUTION WIDTH 16.7 % (11.6-14.8); WHITE BLOOD COUNT 5.4 K/UL (4.8-10.8)
[2017-04-23 10:23] LABS: ALBUMIN/GLOBULIN RATIO 0.8 (1.0-2.7); CALCIUM 8.4 mg/dL (8.6-10.2); CREATININE 2.3 mg/dL (0.7-1.2); GLOMERULAR FILTRATION RATE 29.4 mL/min (>60); POTASSIUM 4.1 mEQ/L (3.4-4.9); TOTAL PROTEIN 6.6 g/dL (6.6-8.7)
[2017-04-23 12:16] VITALS: BP 131/70
--- NOTE | 2017-04-23 12:32 | Nephrology Progress Note ---
Assessment/Plan Problem List: (1) DM renal manif type II (2) CHF exacerbation (3) Respiratory distress (4) Status post kidney transplant (5) CKD stage 3 secondary to diabetes Plan continue diuresis and cardiac care, expect mild increase bun and creatinine with diuresis, restart mycophenalate for transplant Subjective Constitutional: Reports: weakness HEENT: Reports: no symptoms Genitourinary: Reports: incontinence Neurologic/Psychiatric: Reports: pre-existing deficit Objective Objective Last 24 Hour Vital Signs Date Time Temp Pulse Resp B/P Pulse Ox O2 Delivery O2 Flow Rate FiO2 04/23/17 12:16 97.7 70 18 131/70 97 Nasal Cannula 3.0 04/23/17 08:48 67 138/75 04/23/17 08:47 138/75 04/23/17 08:46 67 138/75 04/23/17 08:04 97.5 67 20 138/75 95 Nasal Cannula 3.0 04/23/17 08:00 70 04/23/17 04:00 66 04/23/17 04:00 98.2 66 20 130/69 94 Room Air 04/23/17 00:00 97.3 68 20 129/62 94 Room Air 04/23/17 00:00 66 04/22/17 20:00 97.3 67 21 139/77 94 Room Air 04/22/17 20:00 70 04/22/17 17:36 71 138/78 04/22/17 16:21 97.2 04/22/17 16:15 71 20 138/78 95 Room Air 04/22/17 15:46 70 Intake and Output 04/22/17 04/23/17 19:00 07:00 Intake Total 535 ml Output Total 1200 ml Balance 535 ml -1200 ml Intake Oral 480 ml IV Total 55 ml Output Urine Total 1200 ml # Bowel Movements 1 1 Laboratory Tests 04/23/17 09:45: White Blood Count 5.4, Red Blood Count 3.51L, Hemoglobin 9.9L, Hematocrit 31.2L , Mean Corpuscular Volume 89, Mean Corpuscular Hemoglobin 28.2, Mean Corpuscular Hemoglobin Concent 31.7L, Red Cell Distribution Width 16.7H, Platelet Count 141L, Mean Platelet Volume 9.8, Neutrophils (%) (Auto) 68.4, Lymphocytes (%) (Auto) 21.8, Monocytes (%) (Auto) 7.7, Eosinophils (%) (Auto) 1.4, Basophils (%) (Auto) 0.7, Sodium Level 134L, Potassium Level 4.1, Chloride Level 92L, Carbon Dioxide Level 22, Anion Gap 20H, Blood Urea Nitrogen 57H, Creatinine 2.3H, Estimat Glomerular Filtration Rate 29.4, Glucose Level 396#H, Calcium Level 8.4L, Magnesium Level 2.0, Total Bilirubin 0.3, Aspartate Amino Transf (AST/SGOT) 10, Alanine Aminotransferase (ALT/SGPT) 6, Alkaline Phosphatase 61, Total Protein 6.6, Albumin 3.1L, Globulin 3.5, Albumin/Globulin Ratio 0.8L Height (Feet): 5 Height (Inches): 6.00 Weight (Pounds): 159 General Appearance: no apparent distress, alert EENT: normal ENT inspection Neck: normal alignment Cardiovascular: regular rhythm Respiratory/Chest: lungs clear Abdomen: non tender, soft Extremities: other - r bka no edema Neurologic: urogynecology physician II-XII grossly normal UZIEL BEE Apr 23, 2017 12:32
--- NOTE | 2017-04-23 12:34 | Infectious Diseases Prog Note ---
Assessment/Plan Assessment/Plan antibiotics : cefepime, fluconazole, bactrim A 1. pneumonia improving 2. s/p renal transplant 3. renal failure improving 4. fungal UTI P 1. continue cefepime, fluconazole 2. continue bactrim for PCP prophylaxis 3. will follow up cultures Subjective Constitutional: Denies: chills, fever Respiratory: Denies: dry cough, shortness of breath Gastrointestinal/Abdominal: Denies: diarrhea, nausea, vomiting Musculoskeletal: Denies: pain Allergies: Coded Allergies: PENICILLINS (Unverified Allergy, Unknown, 04/17/16) Objective Vital Signs Last 24 Hour Vital Signs Date Time Temp Pulse Resp B/P Pulse Ox O2 Delivery O2 Flow Rate FiO2 04/23/17 12:16 97.7 70 18 131/70 97 Nasal Cannula 3.0 04/23/17 08:48 67 138/75 04/23/17 08:47 138/75 04/23/17 08:46 67 138/75 04/23/17 08:04 97.5 67 20 138/75 95 Nasal Cannula 3.0 04/23/17 08:00 70 04/23/17 04:00 66 04/23/17 04:00 98.2 66 20 130/69 94 Room Air 04/23/17 00:00 97.3 68 20 129/62 94 Room Air 04/23/17 00:00 66 04/22/17 20:00 97.3 67 21 139/77 94 Room Air 04/22/17 20:00 70 04/22/17 17:36 71 138/78 04/22/17 16:21 97.2 04/22/17 16:15 71 20 138/78 95 Room Air 04/22/17 15:46 70 Height (Feet): 5 Height (Inches): 6.00 Weight (Pounds): 159 Respiratory/Chest: lungs clear Cardiovascular: normal rate, regular rhythm, no gallop/murmur Abdomen: soft, non tender Extremities: no edema, other - right stump clean Microbiology Date/Time Source Procedure Growth Status 04/20/17 23:40 Indwelling Cath Urine Culture - Preliminary YEAST Resulted Laboratory Tests Test 04/23/17 09:45 White Blood Count 5.4 K/UL (4.8-10.8) Red Blood Count 3.51 M/UL (4.70-6.10) L Hemoglobin 9.9 G/DL (14.2-18.0) L Hematocrit 31.2 % (42.0-52.0) L Mean Corpuscular Volume 89 FL (80-99) Mean Corpuscular Hemoglobin 28.2 PG (27.0-31.0) Mean Corpuscular Hemoglobin Concent 31.7 G/DL (32.0-36.0) L Red Cell Distribution Width 16.7 % (11.6-14.8) H Platelet Count 141 K/UL (150-450) L Mean Platelet Volume 9.8 FL (6.5-10.1) Neutrophils (%) (Auto) 68.4 % (45.0-75.0) Lymphocytes (%) (Auto) 21.8 % (20.0-45.0) Monocytes (%) (Auto) 7.7 % (1.0-10.0) Eosinophils (%) (Auto) 1.4 % (0.0-3.0) Basophils (%) (Auto) 0.7 % (0.0-2.0) Sodium Level 134 mEQ/L (135-145) L Potassium Level 4.1 mEQ/L (3.4-4.9) Chloride Level 92 mEQ/L (98-107) L Carbon Dioxide Level 22 mEQ/L (20-30) Anion Gap 20 (5-15) H Blood Urea Nitrogen 57 mg/dL (7-23) H Creatinine 2.3 mg/dL (0.7-1.2) H Estimat Glomerular Filtration Rate 29.4 mL/min (>60) Glucose Level 396 mg/dL (74-106) #H Calcium Level 8.4 mg/dL (8.6-10.2) L Magnesium Level 2.0 mg/dL (1.7-2.5) Total Bilirubin 0.3 mg/dL (0.0-1.2) Aspartate Amino Transf (AST/SGOT) 10 U/L (5-40) Alanine Aminotransferase (ALT/SGPT) 6 U/L (3-41) Alkaline Phosphatase 61 U/L (40-129) Total Protein 6.6 g/dL (6.6-8.7) Albumin 3.1 g/dL (3.5-5.2) L Globulin 3.5 g/dL Albumin/Globulin Ratio 0.8 (1.0-2.7) L LIGIA COLLINS Apr 23, 2017 12:34
[2017-04-23] MEDS: Cefepime HCl 1 GM in D5W 55 ML IVPB SCH (14:22)
[2017-04-23 16:05] VITALS: BP 145/73
[2017-04-23] MEDS: Mycophenolate 250mg cap ORAL SCH (17:28)
[2017-04-23 20:00] VITALS: BP 140/65
[2017-04-23] MEDS ORDERED: Levemir Flexpen SUBQ SCH ×2 (21:00)
--- NOTE | 2017-04-23 22:00 | Consultation ---
DATE OF CONSULTATION: 04/23/2017 CONSULTING PHYSICIAN: Gustavo Rowland M.D. REFERRING PHYSICIAN: Armando Lerma M.D. REASON FOR CONSULTATION: For evaluation of urinary retention. HISTORY OF PRESENT ILLNESS: This is a pleasant 56-year-old male, who is very well known to me from multiple evaluations. In fact, I had recently seen the patient at [facility] and he was in my office a number of days ago because of the urinary retention and BPH. The patient also has a history of end-stage renal disease and renal transplant. He has a history of recurrent UTIs. He has recently failed multiple voiding trials and he has been on Flomax as well as Urecholine and finasteride. [facility] [place] because of respiratory failure and pneumonia. Followup Urology evaluation is requested. Gutierrez catheter is indwelling. He does have positive urine culture. PAST MEDICAL HISTORY: Significant for above. Also, peripheral vascular disease. He has a history of diabetes, coronary artery disease, hypertension, CHF, and DVT. PAST SURGICAL HISTORY: He has had a kidney transplant. He has a right [id number] amputation. MEDICATIONS: Current medications here in the hospital, the patient is on insulin, CellCept, Diflucan, Bactrim, Lopressor, Lipitor, Senokot, Keppra, Lyrica, Neoral, Benadryl, Xarelto, cefepime, Tylenol, Norvasc, aspirin, Colace, finasteride, Imdur, Renvela, prednisone, Lasix, and insulin. He was previously on Flomax and Urecholine, which have been discontinued. ALLERGIES: Penicillin. SOCIAL HISTORY: The patient is a nonsmoker. FAMILY HISTORY: Noncontributory. REVIEW OF SYSTEMS: As above. PHYSICAL EXAMINATION: GENERAL: This is an elderly male, slightly cachectic. VITAL SIGNS: Temperature is 97.2 degrees, blood pressure 145/72, pulse 65, and respirations 20. HEENT: Normocephalic. NECK: Supple. ABDOMEN: Soft. : Gutierrez in place . He has right DKA. LABORATORY DATA: His BUN is 57, creatinine 2.3, and potassium is 4.1. His white count is 5.4, hemoglobin 9.9, and platelets of 141,000. UA showed 1+ protein, 0 to 2 RBCs, 5 to 10 WBCs, and positive yeast. Urine culture showed yeast. DIAGNOSTIC IMAGING STUDIES: The patient had a renal ultrasound back in June 2016. At that time, there was mention of bilateral atrophy of the [place] kidneys. Renal transplant kidney was noted in the right iliac fossa. He also had a scrotal ultrasound last year, which did not show any abnormalities. He also had a CT scan of the abdomen and pelvis last year, which again showed bilateral atrophic kidneys and prominence of the prostate. IMPRESSION: 1. Urinary retention with chronic Gutierrez. 2. Benign prostatic hypertrophy. 3. Atonic neurogenic bladder. 4. Urinary tract infection and colonization. 5. Proteinuria. 6. Chronic renal insufficiency. 7. Renal atrophy. PLAN AND DISCUSSION: Again as noted above. The patient does have urinary retention and has a chronic Gutierrez. He has failed a number of voiding trials, which we tried mostly in the hospital as well as in my office on maximum medical therapy. The patient may need to have a transurethral resection of prostate at some point. I did discuss with Dr. Taylor and I agree with discontinuing Flomax and Urecholine as ordered because he will have an Indwelling Gutierrez for an extended period. He is to continue Diflucan as ordered and we will plan changing his Gutierrez catheter soon. Thank you, Dr. Lerma, for asking me to see the patient in consultation. Gustavo Rowland M.D. DR: Humberto JOB#: [id number] CC:
--- NOTE | 2017-04-23 22:15 | Progress Note ---
DATE: 04/23/2017 CARDIOLOGY PROGRESS NOTE: SUBJECTIVE: The patient feels better and is anxious to go home. His glucose levels have been quite elevated over the past 24 hours up to 400. OBJECTIVE: VITAL SIGNS: Blood pressure is 131/70, pulse 70, and respiratory rate 18. NECK: Supple. LUNGS: With few rales. CARDIAC: Regular rhythm and rate. Normal S1 and S2 with a fourth heart sound. ABDOMEN: Soft. EXTREMITIES: No edema. Right BKA. : Gutierrez catheter in place. LABORATORY DATA: White count is 5.4 and hemoglobin 9.9. Glucose is 400, BUN 57, and creatinine 2.3. Albumin is 3.1. IMPRESSION: 1. Acute on chronic diastolic congestive heart failure. 2. Renal transplant. 3. Acute on chronic renal failure. 4. Insulin-requiring diabetes mellitus, uncontrolled. 5. Fungal cystitis. PLAN: 1. Continue diuresis. 2. Transplant mycophenolate is resumed and antifungal agents per Infectious Disease systems management consultant. 3. Replace potassium and magnesium as needed. 4. Advance insulin coverage. 5. Discharge planning discussed with family members. Armando Lerma M.D. DR: Declan JOB#: [id number] CC:
[2017-04-24] VITALS: BP_SYST 139; BP_SYST 140; BP_DIAS 65
[2017-04-24] MEDS: NovoLOG Insulin Flexpen SUBQ SCH ×4 (00:17→18:50)
[2017-04-24 04:00] VITALS: BP 143/74
[2017-04-24 08:01] LABS: BASOPHILS % (AUTO) 0.6 % (0.0-2.0); MEAN CORPUSCULAR HGB CONC 32.6 G/DL (32.0-36.0); MEAN CORPUSCULAR VOLUME 89 FL (80-99); MEAN PLATELET VOLUME 10.7 FL (6.5-10.1); MONOCYTES % (AUTO) 4.4 % (1.0-10.0); PLATELET COUNT 153 K/UL (150-450); RED BLOOD COUNT 3.34 M/UL (4.70-6.10); RED CELL DISTRIBUTION WIDTH 17.1 % (11.6-14.8); WHITE BLOOD COUNT 6.8 K/UL (4.8-10.8)
[2017-04-24 08:12] VITALS: BP 145/73
[2017-04-24 08:20] LABS: CALCIUM 8.7 mg/dL (8.6-10.2); CREATININE 2.3 mg/dL (0.7-1.2); GLOMERULAR FILTRATION RATE 29.4 mL/min (>60); POTASSIUM 4.3 mEQ/L (3.4-4.9)
[2017-04-24] MEDS ORDERED: Furosemide 40mg tab ORAL SCH (09:00)
[2017-04-24] MEDS: Aspirin EC 81mg tab ORAL SCH (10:05)
[2017-04-24] MEDS: Xarelto 10mg tab ORAL SCH (10:06)
[2017-04-24] MEDS: Metoprolol 25mg tab ORAL SCH ×2 (10:06→18:51)
[2017-04-24] MEDS: Imdur 30mg tab ORAL SCH (10:06)
[2017-04-24] MEDS: Docusate 100mg cap ORAL SCH ×2 (10:07→18:51)
[2017-04-24] MEDS: cycloSPORINE 25mg cap ORAL SCH ×2 (10:07→18:51)
[2017-04-24] MEDS: Lyrica 50mg cap ORAL SCH ×2 (10:07→18:51)
[2017-04-24] MEDS: Fluconazole 100mg tab ORAL SCH (10:08)
[2017-04-24] MEDS: PredniSONE 5mg tab ORAL SCH (10:08)
[2017-04-24] MEDS: Bactrim SS Tab ORAL SCH (10:08)
[2017-04-24] MEDS: Mycophenolate 250mg cap ORAL SCH ×2 (10:08→18:51)
--- NOTE | 2017-04-24 10:28 | Urology Progress Note ---
Assessment/Plan Assessment/Plan 1. Urinary retention with chronic Boggs. 2. Benign prostatic hypertrophy. 3. Atonic neurogenic bladder. 4. Urinary tract infection and colonization. 5. Proteinuria. 6. Chronic renal insufficiency. 7. Renal atrophy. boggs indwelling, change cath today abx, diflucan proscar may need TURP Subjective Allergies: Coded Allergies: PENICILLINS (Unverified Allergy, Unknown, 04/17/16) Subjective all noted Objective Last 24 Hour Vital Signs Date Time Temp Pulse Resp B/P Pulse Ox O2 Delivery O2 Flow Rate FiO2 04/24/17 10:06 73 145/73 04/24/17 10:06 145/73 04/24/17 10:05 73 145/73 04/24/17 08:12 97.3 73 20 145/73 95 Room Air 04/24/17 04:00 98.2 72 20 143/74 Room Air 04/24/17 04:00 72 04/24/17 00:00 65 04/24/17 00:00 98.5 65 21 140/65 90 Room Air 3.0 04/24/17 00:00 98.5 65 21 139/65 Room Air 04/23/17 20:00 66 04/23/17 20:00 98.5 65 21 140/65 90 Room Air 04/23/17 17:29 65 145/73 04/23/17 16:05 97.2 65 20 145/73 96 Nasal Cannula 3.0 04/23/17 16:00 65 04/23/17 12:16 97.7 70 18 131/70 97 Nasal Cannula 3.0 04/23/17 12:00 70 Intake and Output 04/23/17 04/24/17 19:00 07:00 Intake Total 480 ml Output Total 1000 ml 150 ml Balance -520 ml -150 ml Intake Oral 480 ml Output Urine Total 1000 ml 150 ml Microbiology Date/Time Source Procedure Growth Status 04/20/17 01:05 Blood Blood Culture - Preliminary NO GROWTH AFTER 4 DAYS Resulted 04/20/17 02:00 Nasal Nares MRSA Culture - Final NO METHICILLIN RESISTANT STAPH AUREUS... Complete 04/20/17 23:40 Indwelling Cath Urine Culture - Final Diana Albicans Complete Current Medications Medications (Trade) Dose Ordered Sig/Benita Route PRN Reason Start Time Stop Time Status Last Admin Dose Admin Acetaminophen (Tylenol) 650 mg Q6H PRN ORAL Prn Headache/Temp > 101 04/20/17 13:00 05/20/17 12:59 Acetaminophen (Tylenol) 650 mg Q6H PRN ORAL fever 04/20/17 13:00 05/20/17 12:59 Amlodipine Besylate (Norvasc) 5 mg DAILY ORAL 04/20/17 13:00 05/20/17 12:59 04/24/17 10:05 Aspirin (Ecotrin) 81 mg DAILY ORAL 04/20/17 13:00 05/20/17 12:59 04/24/17 10:05 Atorvastatin Calcium (Lipitor) 10 mg BEDTIME ORAL 04/20/17 21:00 05/20/17 20:59 04/24/17 00:00 Cefepime HCl/ Dextrose (Maxipime/D5W) 55 ml @ 110 mls/hr Q24H IVPB 04/20/17 14:00 04/27/17 13:59 04/23/17 14:22 Cyclosporine (Neoral) 75 mg BID ORAL 04/20/17 18:00 05/20/17 17:59 04/24/17 10:07 Dextrose (Dextrose 50%) STAT PRN IV Hypoglycemia 04/20/17 05:30 05/20/17 05:29 Diphenhydramine HCl (Benadryl) 25 mg Q6H PRN ORAL Itching 04/20/17 14:00 05/20/17 13:59 Docusate Sodium (Colace) 100 mg BID ORAL 04/20/17 13:00 05/20/17 12:59 04/24/17 10:07 Finasteride (Proscar) 5 mg DAILY ORAL 04/20/17 13:00 05/20/17 12:59 04/24/17 10:08 Fluconazole (Diflucan) 100 mg DAILY ORAL 04/22/17 12:00 04/29/17 11:59 04/24/17 10:08 Furosemide (Lasix) 40 mg DAILY ORAL 04/24/17 09:00 05/24/17 08:59 04/24/17 10:06 Insulin Aspart (NovoLOG) BEFORE MEALS AND HS SUBQ 04/24/17 11:30 05/24/17 11:29 Insulin Detemir (Levemir) 18 units Q24H SUBQ 04/23/17 21:00 05/23/17 20:59 04/24/17 00:16 Isosorbide Mononitrate (Imdur) 30 mg DAILY ORAL 04/20/17 13:00 05/20/17 12:59 04/24/17 10:06 Levetiracetam (Keppra) 500 mg BID ORAL 04/20/17 18:00 05/20/17 17:59 04/24/17 10:06 Metoprolol Tartrate (Lopressor) 50 mg BID ORAL 04/21/17 09:00 05/21/17 08:59 04/24/17 10:06 Mycophenolate Mofetil (Cellcept) 500 mg TWICE A DAY ORAL 04/23/17 18:00 05/23/17 17:59 04/24/17 10:08 Prednisone 5 mg 5 mg DAILY ORAL 04/20/17 13:00 05/20/17 12:59 04/24/17 10:08 Pregabalin (Lyrica) 50 mg BID ORAL 04/20/17 18:00 05/20/17 17:59 04/24/17 10:07 Rivaroxaban (Xarelto) 20 mg DAILY ORAL 04/20/17 14:00 05/20/17 13:59 04/24/17 10:06 Sennosides (Senokot) 8.6 mg BEDTIME ORAL 04/20/17 21:00 05/20/17 20:59 04/24/17 00:00 Sevelamer Carbonate (Renvela) 800 mg THREE TIMES A DAY ORAL 04/20/17 13:00 05/20/17 12:59 04/24/17 10:07 Trimethoprim/ Sulfamethoxazole (Bactrim Single Strength) 1 ea DAILY ORAL 04/22/17 09:00 04/29/17 08:59 04/24/17 10:08 Laboratory Tests 04/24/17 07:40: White Blood Count 6.8, Red Blood Count 3.34L, Hemoglobin 9.7L, Hematocrit 29.8L , Mean Corpuscular Volume 89, Mean Corpuscular Hemoglobin 29.0, Mean Corpuscular Hemoglobin Concent 32.6, Red Cell Distribution Width 17.1H, Platelet Count 153, Mean Platelet Volume 10.7H, Neutrophils (%) (Auto) 77.0H, Lymphocytes (%) (Auto) 17.0L, Monocytes (%) (Auto) 4.4, Eosinophils (%) (Auto) 1.0, Basophils (%) (Auto) 0.6, Sodium Level 137, Potassium Level 4.3, Chloride Level 96L, Carbon Dioxide Level 24, Anion Gap 17H, Blood Urea Nitrogen 60H, Creatinine 2.3H, Estimat Glomerular Filtration Rate 29.4, Glucose Level 336H, Calcium Level 8.7 Height (Feet): 5 Height (Inches): 6.00 Weight (Pounds): 159 Objective exam stable JAMISON CORDON Apr 24, 2017 10:28
--- NOTE | 2017-04-24 11:21 | Infectious Diseases Prog Note ---
Assessment/Plan Assessment/Plan antibiotics : cefepime, fluconazole, bactrim A 1. pneumonia improving 2. s/p renal transplant 3. renal failure improving 4. fungal UTI P 1. continue cefepime 2. continue fluconazole 4 more days 3. continue bactrim for PCP prophylaxis 4. will follow up cultures Subjective ROS Limited/Unobtainable: Yes Allergies: Coded Allergies: PENICILLINS (Unverified Allergy, Unknown, 04/17/16) Objective Vital Signs Last 24 Hour Vital Signs Date Time Temp Pulse Resp B/P Pulse Ox O2 Delivery O2 Flow Rate FiO2 04/24/17 10:06 73 145/73 04/24/17 10:06 145/73 04/24/17 10:05 73 145/73 04/24/17 08:12 97.3 73 20 145/73 95 Room Air 04/24/17 04:00 98.2 72 20 143/74 Room Air 04/24/17 04:00 72 04/24/17 00:00 65 04/24/17 00:00 98.5 65 21 140/65 90 Room Air 3.0 04/24/17 00:00 98.5 65 21 139/65 Room Air 04/23/17 20:00 66 04/23/17 20:00 98.5 65 21 140/65 90 Room Air 04/23/17 17:29 65 145/73 04/23/17 16:05 97.2 65 20 145/73 96 Nasal Cannula 3.0 04/23/17 16:00 65 04/23/17 12:16 97.7 70 18 131/70 97 Nasal Cannula 3.0 04/23/17 12:00 70 Height (Feet): 5 Height (Inches): 6.00 Weight (Pounds): 159 Respiratory/Chest: lungs clear Cardiovascular: normal rate, regular rhythm, no gallop/murmur Abdomen: soft, non tender Extremities: no edema, other - right stump clean Laboratory Tests Test 04/24/17 07:40 White Blood Count 6.8 K/UL (4.8-10.8) Red Blood Count 3.34 M/UL (4.70-6.10) L Hemoglobin 9.7 G/DL (14.2-18.0) L Hematocrit 29.8 % (42.0-52.0) L Mean Corpuscular Volume 89 FL (80-99) Mean Corpuscular Hemoglobin 29.0 PG (27.0-31.0) Mean Corpuscular Hemoglobin Concent 32.6 G/DL (32.0-36.0) Red Cell Distribution Width 17.1 % (11.6-14.8) H Platelet Count 153 K/UL (150-450) Mean Platelet Volume 10.7 FL (6.5-10.1) H Neutrophils (%) (Auto) 77.0 % (45.0-75.0) H Lymphocytes (%) (Auto) 17.0 % (20.0-45.0) L Monocytes (%) (Auto) 4.4 % (1.0-10.0) Eosinophils (%) (Auto) 1.0 % (0.0-3.0) Basophils (%) (Auto) 0.6 % (0.0-2.0) Sodium Level 137 mEQ/L (135-145) Potassium Level 4.3 mEQ/L (3.4-4.9) Chloride Level 96 mEQ/L (98-107) L Carbon Dioxide Level 24 mEQ/L (20-30) Anion Gap 17 (5-15) H Blood Urea Nitrogen 60 mg/dL (7-23) H Creatinine 2.3 mg/dL (0.7-1.2) H Estimat Glomerular Filtration Rate 29.4 mL/min (>60) Glucose Level 336 mg/dL (74-106) H Calcium Level 8.7 mg/dL (8.6-10.2) LIGIA COLLINS Apr 24, 2017 11:21
[2017-04-24 11:31] VITALS: BP 135/72
[2017-04-24] MEDS: Cefepime HCl 1 GM in D5W 55 ML IVPB SCH (14:33)
--- NOTE | 2017-04-24 14:42 | Nephrology Progress Note ---
Assessment/Plan Problem List: (1) DM renal manif type II (2) CHF exacerbation (3) Respiratory distress (4) Status post kidney transplant (5) CKD stage 3 secondary to diabetes Plan continue diuresis and cardiac care, expect mild increase bun and creatinine with diuresis, restart mycophenalate for transplant, boggs per dr albert Subjective Constitutional: Reports: weakness HEENT: Reports: no symptoms Genitourinary: Reports: incontinence Neurologic/Psychiatric: Reports: pre-existing deficit Objective Objective Last 24 Hour Vital Signs Date Time Temp Pulse Resp B/P Pulse Ox O2 Delivery O2 Flow Rate FiO2 04/24/17 12:00 75 04/24/17 11:31 98.2 74 18 135/72 94 Room Air 04/24/17 10:06 73 145/73 04/24/17 10:06 145/73 04/24/17 10:05 73 145/73 04/24/17 08:12 97.3 73 20 145/73 95 Room Air 04/24/17 08:00 75 04/24/17 04:00 98.2 72 20 143/74 Room Air 04/24/17 04:00 72 04/24/17 00:00 65 04/24/17 00:00 98.5 65 21 140/65 90 Room Air 3.0 04/24/17 00:00 98.5 65 21 139/65 Room Air 04/23/17 20:00 66 04/23/17 20:00 98.5 65 21 140/65 90 Room Air 04/23/17 17:29 65 145/73 04/23/17 16:05 97.2 65 20 145/73 96 Nasal Cannula 3.0 04/23/17 16:00 65 Intake and Output 04/23/17 04/24/17 19:00 07:00 Intake Total 480 ml Output Total 1000 ml 150 ml Balance -520 ml -150 ml Intake Oral 480 ml Output Urine Total 1000 ml 150 ml Laboratory Tests 04/24/17 07:40: White Blood Count 6.8, Red Blood Count 3.34L, Hemoglobin 9.7L, Hematocrit 29.8L , Mean Corpuscular Volume 89, Mean Corpuscular Hemoglobin 29.0, Mean Corpuscular Hemoglobin Concent 32.6, Red Cell Distribution Width 17.1H, Platelet Count 153, Mean Platelet Volume 10.7H, Neutrophils (%) (Auto) 77.0H, Lymphocytes (%) (Auto) 17.0L, Monocytes (%) (Auto) 4.4, Eosinophils (%) (Auto) 1.0, Basophils (%) (Auto) 0.6, Sodium Level 137, Potassium Level 4.3, Chloride Level 96L, Carbon Dioxide Level 24, Anion Gap 17H, Blood Urea Nitrogen 60H, Creatinine 2.3H, Estimat Glomerular Filtration Rate 29.4, Glucose Level 336H, Calcium Level 8.7 Height (Feet): 5 Height (Inches): 6.00 Weight (Pounds): 159 General Appearance: no apparent distress, alert EENT: normal ENT inspection Neck: non-tender Cardiovascular: normal rate, regular rhythm Respiratory/Chest: lungs clear, normal breath sounds Abdomen: non tender, soft, no organomegaly Extremities: other - r bka no edema Neurologic: frame straightener II-XII grossly normal UZIEL BEE Apr 24, 2017 14:42
[2017-04-24 16:03] VITALS: BP 137/77
[2017-04-24 20:00] VITALS: BP 123/71
--- NOTE | 2017-04-24 22:00 | Progress Note ---
DATE: 04/24/2017 CARDIOLOGY PROGRESS NOTE SUBJECTIVE: The patient is without distress. Anxious to go home. No shortness of breath noted. The case was discussed with Dr. Blanc from Nephrology and his immunosuppressive regimen was adjusted accordingly. The patient's antibiotics will be switched to oral regimen for the next four days of completion. The patient's anti-failure regimen was discussed with him and his sister and dosing adjusted. Duplications of therapy as an outpatient were corrected. The patient's glucose remains tenuous and his insulin regimen will require continued titration at home. The patient will have a chronic indwelling Gutierrez catheter and some of his urologic drugs namely tamsulosin and bethanechol were discontinued as there is no plan for voiding trial at this time. PHYSICAL EXAMINATION: VITAL SIGNS: Blood pressure is 137/77, pulse 68, and respirations 18. NECK: Supple. LUNGS: Clear. CARDIAC: Regular. EXTREMITIES: Right BKA. No edema. IMPRESSION: 1. Congestive heart failure exacerbation, recovered. 2. Acute bronchopneumonia, resolving. 3. Urinary retention. 4. Chronic Gutierrez catheter in place. 5. Hypertension labile and now controlled. 6. Renal transplant on immunosuppressants. 7. Acute on chronic kidney disease, to be monitored closely as an outpatient with renal follow up. DISCHARGE PLAN: Home today. The patient and his sister were offered acute rehab, but they refused electing to complete recovery at home with home health. Armando Lerma M.D. : BERENICE JOB#: [id number] CC:
[2017-04-25] MEDS ORDERED: cycloSPORINE 100mg cap ORAL SCH (09:00)
--- NOTE | 2017-04-25 13:21 | Discharge Summary ---
Discharge Summary Hospital Course Date of Admission Apr 20, 2017 at 00:42 Date of Discharge Apr 24, 2017 at 20:43 Admitting Diagnosis shortness of breath LAYLA Winchester is a 56 year old male who was admitted on Apr 20, 2017 at 00: 42 for Shortness Of Breath Hospital Course [id number] Discharge Discharge Disposition Patient was discharged to Home with Discharge Diagnoses: Nena Cosby NP Apr 25, 2017 13:21
--- NOTE | 2017-04-25 23:01 | Discharge Summary 2 SIG ---
DATE OF ADMISSION: 04/20/2017 DATE OF DISCHARGE: 04/24/2017 ADMITTING DIAGNOSES: 1. Congestive heart failure/pulmonary edema. 2. Kidney transplant. 3. Hypertension. 4. Diabetes. 5. Seizure disorder. 6. History of deep venous thrombosis. 7. History of below-knee amputation. BRIEF HOSPITAL COURSE: The patient is a 56-year-old male with a history of kidney transplant, hypertension, diabetes, DVT, and history of peripheral artery disease, status post diabetic ketoacidosis. He was brought in by paramedics from home because of sudden shortness of breath. O2 saturation were in the 80s. On evaluation at ED, BNP was elevated to 16,793. Potassium was 5.2. Chest x-ray showed worsening bilateral congestive changes with possible superimposed pneumonia. He was admitted for acute exacerbation of congestive heart failure and was started on diuretics. He was also found to be in atrial fibrillation with rapid ventricular response at the time of admission. He was continued on rivaroxaban and beta-mello. He was started on IV antibiotics, cefepime and was given Bactrim for PCP prophylaxis. Urine culture showed growth of Diana and was given fluconazole. He has history of urinary retention and BPH and has failed multiple voiding trials. He was on Flomax as well as Urecholine and finasteride. The patient has been on chronic Gutierrez catheter. Flomax and Urecholine has been discontinued. Gutierrez catheter was changed by Dr. Rowland. He was restarted on mycophenolate as the patient is status post kidney transplant. The patient and his sister were offered discharge to acute rehabilitation, however, they refused and elected to undergo complete recovery at home with home health. The patient was discharged. FINAL DIAGNOSES: 1. Acute on chronic diastolic congestive heart failure. 2. Acute on chronic renal failure. 3. Renal transplant. 4. Chronic kidney disease stage 3 secondary to diabetes. 5. Diabetes mellitus with renal manifestation type 2. 6. Paroxysmal atrial fibrillation. 7. Pneumonia. 8. History of deep venous thrombosis. 9. Fungal urinary tract infection. 10. Urinary retention with chronic indwelling Gutierrez catheter. 11. Benign prostatic hypertrophy. Armando Lerma M.D. I have been assigned to dictate discharge summary on this account and I was not involved in the patient's management. Nena Cosby N.P. DR: KEVIN JOB#: [id number] CC:
== END 2017-04-24 20:43 | disposition home or self-care (01) | DRG 291 ==
LOC: EDBD 23:43 → EMR 23:57 → 2E 04-20 00:42 → EDBEDREQ 04-20 01:06 → 2E 04-20 06:48
DX: I13.0 Hypertensive heart and chronic kidney disease with heart failure and stage 1 through stage 4 chronic kidney disease, or unspecified chronic kidney disease (principal); I50.33 Acute on chronic diastolic (congestive) heart failure; J18.9 Pneumonia, unspecified organism; E11.22 Type 2 diabetes mellitus with diabetic chronic kidney disease; N17.9 Acute kidney failure, unspecified; E87.5 Hyperkalemia; E11.65 Type 2 diabetes mellitus with hyperglycemia; N18.3 Chronic kidney disease, stage 3 (moderate); Z89.611 Acquired absence of right leg above knee; B37.49 Other urogenital candidiasis; Z94.0 Kidney transplant status; I48.0 Paroxysmal atrial fibrillation; R09.02 Hypoxemia; J44.9 Chronic obstructive pulmonary disease, unspecified; I25.5 Ischemic cardiomyopathy; G40.909 Epilepsy, unspecified, not intractable, without status epilepticus; N40.1 Benign prostatic hyperplasia with lower urinary tract symptoms; R33.8 Other retention of urine; N31.2 Flaccid neuropathic bladder, not elsewhere classified; Y95 Nosocomial condition; Z79.82 Long term (current) use of aspirin; Z79.01 Long term (current) use of anticoagulants; Z79.4 Long term (current) use of insulin; Z88.0 Allergy status to penicillin; Z86.718 Personal history of other venous thrombosis and embolism; Z87.891 Personal history of nicotine dependence; Z86.73 Personal history of transient ischemic attack (TIA), and cerebral infarction without residual deficits
CPT/HCPCS: 36415; 36600; 71010; 80048; 80053; 80158; 80299; 81003; 82550; 82553; 82803; 82962; 83605; 83735; 83880; 84484; 85025; 87040; 87081; 87086; 93005; J1815; S5561

== ENCOUNTER 2017-05-21 21:09 | Inpatient (IN) | payer MEDICARE, OTHER ==
[~2017-05-21] VITALS: Ht 165.1 cm; Wt 64.9 kg
[~2017-05-21 21:09] MED LIST changes: +ACETAMINOPHEN325 M1 ORAL; +AMLODIPINE BESYL5 MG ORAL; +BISACODYL10 M1 RC; +CYCLOSPORINE50 MG PO; +DIPHENHYDRAMINE25 M1 ORAL; +HUMALOG100 UNIT/1 SUBQ; +LANTUS SOL100 UNIT/1 SUBQ; +MIRALAX17 GM ORAL; +RENVELA800 MG ORAL; +SEN-O-TAB8.6 MG ORAL; +SIMETHICONE80 MG ORAL; +TUMS200 M1 PO; +URECHOLINE25 M1 ORAL
[2017-05-22 00:01] VITALS: BP 123/69
[2017-05-22] MEDS ORDERED: Norco 5mg/325mg tab ORAL PRN (01:30)
[2017-05-22] MEDS ORDERED: HydrALAZINE 25mg tab ORAL PRN ×2 (01:45→04:15)
[2017-05-22 04:00] VITALS: BP 121/64
[2017-05-22] MEDS ORDERED: NORCO 5-325 TA1 EAC1 ORAL (04:30)
[2017-05-22] MEDS ORDERED: ELIQUIS2.5 MG PO (04:30)
[2017-05-22] MEDS: NovoLOG Insulin Flexpen SUBQ SCH ×4 (06:38→22:16)
[2017-05-22 08:00] VITALS: BP 112/66
[2017-05-22] MEDS: Eliquis 2.5mg tablet ORAL SCH ×2 (08:44→17:20)
[2017-05-22] MEDS: Imdur 30mg tab ORAL SCH (08:44)
[2017-05-22] MEDS: cycloSPORINE 100mg cap ORAL SCH ×2 (08:44→17:20)
[2017-05-22] MEDS: Tums 500mg ORAL SCH (08:44)
[2017-05-22] MEDS: Mycophenolate 250mg cap ORAL SCH ×2 (08:44→17:20)
[2017-05-22] MEDS: PredniSONE 5mg tab ORAL SCH (08:44)
[2017-05-22] MEDS: Metoprolol Tartrate 50mg tab ORAL SCH ×2 (08:45→22:17)
[2017-05-22] MEDS: Docusate 100mg cap ORAL SCH (08:45)
[2017-05-22] MEDS ORDERED: Mycophenolate 250mg cap ORAL SCH (09:00)
[2017-05-22 09:20] LABS: BASOPHILS % (AUTO) 0.6 % (0.0-2.0); EOSINOPHILS % (AUTO) 0.2 % (0.0-3.0); LYMPHOCYTES % (AUTO) 16.2 % (20.0-45.0); MEAN CORPUSCULAR HEMOGLOBIN 29.6 PG (27.0-31.0); MEAN CORPUSCULAR HGB CONC 33.3 G/DL (32.0-36.0); MEAN CORPUSCULAR VOLUME 89 FL (80-99); MONOCYTES % (AUTO) 5.8 % (1.0-10.0); NEUTROPHILS % (AUTO) 77.3 % (45.0-75.0); PLATELET COUNT 176 K/UL (150-450); RED BLOOD COUNT 4.18 M/UL (4.70-6.10); RED CELL DISTRIBUTION WIDTH 15.6 % (11.6-14.8); WHITE BLOOD COUNT 7.7 K/UL (4.8-10.8)
[2017-05-22 09:42] LABS: ALBUMIN/GLOBULIN RATIO 1.1 (1.0-2.7); CALCIUM 9.7 mg/dL (8.6-10.2); CREATININE 1.7 mg/dL (0.7-1.2); GLOMERULAR FILTRATION RATE 41.6 mL/min (>60); TOTAL PROTEIN 7.4 g/dL (6.6-8.7)
[2017-05-22 09:49] LABS: THYROID STIMULATING HORMONE 1.23 uIU/mL (0.300-4.500)
--- NOTE | 2017-05-22 10:46 | History and Physical Report ---
DATE OF ADMISSION: 05/21/2017 CHIEF COMPLAINT: Seizures. HISTORY OF PRESENT ILLNESS: The patient is a pleasant 56-year-old male. He was brought by paramedics to an outside hospital after his sister found him confused and lethargic. He was diaphoretic and sweating. The blood sugar was normal. On evaluation in the ER at [facility], he had a CAT scan that was unremarkable. It was felt that the patient likely had had a seizure. Of note seizure medications were decreased a month ago because of fatigue and lethargy. The patient did do well after medications were cut down. He denies any medication noncompliance. PAST MEDICAL HISTORY: As above. PAST SURGICAL HISTORY: Includes a kidney transplant in a diabetic ketoacidosis. CURRENT MEDICATIONS: Reconciled and reviewed. ALLERGIES: Include penicillin. FAMILY HISTORY: Noncontributory. SOCIAL HISTORY: There is no known history of tobacco, ethanol, or drugs. REVIEW OF SYSTEMS: General: No fever or chills. HEENT: No headaches or visual changes. Cardiopulmonary: No chest pain or shortness of breath. Gastrointestinal: No nausea or vomiting. Genitourinary: No urgency or frequency. Musculoskeletal: No dependent swelling. Neurologic: Positive history of seizure. PHYSICAL EXAMINATION: VITAL SIGNS: Temperature 97.5, pulse 65, respirations 19, and blood pressure 121/64. GENERAL: The patient is a well-developed male, in no apparent distress. He is awake, alert, and oriented x4. HEENT: His pupils are equal, round, and reactive to light. . Oropharynx clear. NECK: Supple. HEART: Regular rate and rhythm. LUNGS: Lungs are clear. ABDOMEN: Soft, nontender, and nondistended. EXTREMITIES: Without clubbing or cyanosis. LABORATORY DATA: Pending. ASSESSMENT: This is a pleasant male with prior history of seizure disorder, admitted with recurrent seizures. He has a history of kidney transplant, hypertension, diabetes, and history of deep venous thrombosis. So, the plan, neuro consultation, seizure precautions, continue outpatient seizure regimen. Repeat urine studies and continue current cardiac regimen. Osmani Caal M.D. DR: CARLOZ JOB#: [id number] CC:
--- NOTE | 2017-05-22 10:57 | Neurology Progress Note ---
Objective Physical Exam Last Vital Signs Date Time Temp Pulse Resp B/P Pulse Ox O2 Delivery O2 Flow Rate FiO2 05/22/17 08:45 64 112/66 05/22/17 08:00 97.7 21 98 Room Air Laboratory Tests Test 05/22/17 08:15 White Blood Count 7.7 K/UL (4.8-10.8) Red Blood Count 4.18 M/UL (4.70-6.10) L Hemoglobin 12.4 G/DL (14.2-18.0) L Hematocrit 37.2 % (42.0-52.0) L Mean Corpuscular Volume 89 FL (80-99) Mean Corpuscular Hemoglobin 29.6 PG (27.0-31.0) Mean Corpuscular Hemoglobin Concent 33.3 G/DL (32.0-36.0) Red Cell Distribution Width 15.6 % (11.6-14.8) H Platelet Count 176 K/UL (150-450) Mean Platelet Volume 11.0 FL (6.5-10.1) H Neutrophils (%) (Auto) 77.3 % (45.0-75.0) H Lymphocytes (%) (Auto) 16.2 % (20.0-45.0) L Monocytes (%) (Auto) 5.8 % (1.0-10.0) Eosinophils (%) (Auto) 0.2 % (0.0-3.0) Basophils (%) (Auto) 0.6 % (0.0-2.0) Sodium Level 138 mEQ/L (135-145) Potassium Level 4.0 mEQ/L (3.4-4.9) Chloride Level 94 mEQ/L (98-107) L Carbon Dioxide Level 29 mEQ/L (20-30) Anion Gap 15 (5-15) Blood Urea Nitrogen 54 mg/dL (7-23) H Creatinine 1.7 mg/dL (0.7-1.2) H Estimat Glomerular Filtration Rate 41.6 mL/min (>60) Glucose Level 170 mg/dL (74-106) H Calcium Level 9.7 mg/dL (8.6-10.2) Total Bilirubin 0.7 mg/dL (0.0-1.2) Aspartate Amino Transf (AST/SGOT) 14 U/L (5-40) Alanine Aminotransferase (ALT/SGPT) 6 U/L (3-41) Alkaline Phosphatase 53 U/L (40-129) Pro-B-Type Natriuretic Peptide 7572 pg/mL (0-125) H Total Protein 7.4 g/dL (6.6-8.7) Albumin 4.0 g/dL (3.5-5.2) Globulin 3.4 g/dL Albumin/Globulin Ratio 1.1 (1.0-2.7) Thyroid Stimulating Hormone (TSH) 1.230 uIU/mL (0.300-4.500) Impression/Recommendations Problems: (1) chronic seizure disorder, eczacerbation (2) Confusional state Status: unchanged Recommendations #[id number] ALEX HERBERT May 22, 2017 10:57
--- NOTE | 2017-05-22 11:32 | Consultation ---
DATE OF CONSULTATION: 05/22/2017 NEPHROLOGY CONSULTATION CONSULTING PHYSICIAN: Moise Blanc M.D. REFERRING PHYSICIAN: Osmani Caal M.D. REASON FOR CONSULTATION: I am asked to evaluate the patient, 56-year-old man with end-stage renal disease and a kidney transplant since 1988. HISTORY OF PRESENT ILLNESS: The patient is a poor historian. He says he comes in with a sore throat and weakness. He has had acute on chronic congestive heart failure and multiple exacerbations. He has also had within the last year pneumonia and recurrent urinary tract infections. He has a chronic indwelling Gutierrez for urinary retention and neurogenic bladder. He has had peripheral vascular disease and a right below-knee amputation. There is a history of prior CVAs and seizures. He has had a gradual increasing of the BUN and creatinine over the last year despite close monitoring. This is possibly related to diuretics for congestive heart failure. PAST SURGERIES: Include dialysis access except the left arm. Renal transplant in 1988, below-knee amputation on the right. Amputation of toes of the left foot. MEDICATIONS: He cannot give me a medication list but recent list included amlodipine 5 mg daily, aspirin 81 mg daily, calcium carbonate 1 tablet daily, cyclosporine 100 mg every 12 hours, DSS 100 mg b.i.d., finasteride 5 mg daily, Lantus, sliding scale , lactulose p.r.n., Keppra 500 mg b.i.d., metoprolol 25 mg daily, Protonix 40 mg daily, pravastatin 20 mg daily, prednisone 5 mg daily, pregabalin 50 mg b.i.d., senna two tablets daily, Sevelamer 800 mg t.i.d., tamsulosin 0.4 mg daily, Urecholine 25 mg t.i.d., Tylenol p.r.n., bisacodyl p.r.n., Benadryl p.r.n., hydralazine 25 mg q.4 h. p.r.n., MiraLAX p.r.n., simethicone p.r.n., and CellCept 500 mg b.i.d. ALLERGIES: Penicillin. HABITS: He is a former smoker and occasional alcohol drinker, quit both many years ago. SYSTEM REVIEW: HEAD EYES, EARS, NOSE, AND THROAT: He states his vision and hearing is good. ENDOCRINE: Long-standing diabetes. No thyroid disease. PULMONARY: He has a history of chronic obstructive pulmonary disease and recurrent pulmonary infections. CARDIAC: History of diastolic congestive heart failure. He had prior elevated troponins but no chest pain at this time. GASTROINTESTINAL: History of gastritis in the past. He has no nausea or vomiting at this time. GENITOURINARY: He has had urinary retention. NEUROLOGIC: History of cardiovascular disease and seizures. PHYSICAL EXAMINATION: GENERAL: The patient is alert man, lying in bed, in no acute distress. He has a Gutierrez catheter and heparin lock. VITAL SIGNS: Showed temperature 97.7, pulse 64, respirations 21, blood pressure 112/66, and pulse oximetry 98% on room air. HEAD, EYES, EARS, NOSE, AND THROAT: Sclerae are nonicteric. Ocular motions intact in all directions. Mild periorbital edema. Throat shows no definite ulcerations or exudate. NECK: No adenopathy. LUNGS: Clear. HEART: Regular rhythm. No murmur. ABDOMEN: Soft without organomegaly or masses. Renal transplant in the right iliac fossa, nontender. EXTREMITIES: No edema, cyanosis or clubbing. He has a right below-knee amputation. NEUROLOGIC: He is alert and responsive. Ocular motions intact in all directions. Smile is symmetric. He moves all extremities. IMPRESSION: 1. Renal transplant status. 2. chronic diastolic congestive heart failure. 3. Insulin-dependent diabetes. 4. Below-knee amputation. 5. Peripheral vascular disease. 6. Chronic transplant nephropathy. PLAN: At this time, we will monitor his laboratories and clinical course. Chemistries are pending. Orders reviewed for chronic kidney disease and medications were adjusted as needed. Thank you so much for taking this dictation. Moise Blanc M.D. DR: NAHEED JOB#: [id number] CC:
[2017-05-22 12:00] VITALS: BP 110/59
--- NOTE | 2017-05-22 13:31 | Consultation ---
DATE OF CONSULTATION: 05/21/2017 NOTE: POOR AUDIO QUALITY NEUROLOGICAL CONSULTATION CONSULTING PHYSICIAN: Heraclio Bethea M.D. REFERRING PHYSICIAN: Osmani Caal M.D. HISTORY OF PRESENT ILLNESS: The patient is a 56-year-old man, seen in neurological consultation to evaluate presumed seizure episode. The patient has multiple chronic medical issues including chronic seizure disorder. He was found to be unresponsive at home. His sister who was at home noticed that the patient went to bed to sleep, but later, he found to be lying in bed, unresponsive and "snoring". He keep snoring for another 15 to 20 minutes, become diaphoretic. Blood sugar level was obtained, this was 346. The patient was brought to emergency room at the [facility]. On evaluation, the patient had a seizure episode with postictal state. The patient's sister recalled that he recently had been treated for UTI and finished just antibiotics. The patient gradually became more responsive and transported to this facility for further diagnostic studies. According to medical records known that the patient has been taken to this hospital one month ago. He was diagnosed with paroxysmal atrial fibrillation with rapid ventricular response, possible pneumonia, type 2 diabetes mellitus, and multiple complications renal CAT scan, insufficiency with history of deep vein thrombosis, peripheral vascular disease with right [id number] amputation, history of hypertension, history of two strokes in the last couple of years, and history of seizure. According to the patient, a few months ago, but . CAT scan was obtained, this was negative except old lacunar infarct. Following current admission, lab work was obtained revealing WBC 15.1, hemoglobin 13.6, and hematocrit 41.3. Chemistry panel with potassium 5.2, anion gap of 19, BUN of 54, creatinine 2.2, and glucose 178. BNP of 16,793. Normal lactic acid. Latest BUN of 60 and creatinine 2.3. Toxicology panel, cyclosporine level 69. Urinalysis 5 to 9 WBCs, 1+ protein. Chest x-ray on admission include substantial worsened bilateral congestion changes superimposed pneumonia was not excludable. MEDICATIONS: The patient's current treatment list included amiodarone, Aricept, aspirin, atorvastatin, bethanechol, calcium carbonate, cyclosporine, diphenhydramine, finasteride, furosemide, hydrocodone p.r.n., insulin, isosorbide, , Keppra 500 mg b.i.d., metoprolol, CellCept, nifedipine, pantoprazole, potassium, prednisone 5 mg daily, Lyrica 50 mg b.i.d., , simethicone, and tamsulosin. FAMILY HISTORY: Noncontributory. SOCIAL HISTORY: The patient is now lives with his sister, who is caregiver. He had a previous history of alcohol abuse and smoking. REVIEW OF SYSTEMS: The patient indicated this time he has no headache or dizziness, but he complains having seizures once a month. The patient was a poor historian and unable provide with full information. PHYSICAL EXAMINATION: GENERAL: A well-developed, ill-appearing man, not in acute distress, lying in bed, and drowsy, but arousable. VITAL SIGNS: His vital signs are stable. Blood pressure 112/66 and temperature 97.7 degrees. HEENT: Head, normocephalic. No evidence of trauma. Eyes, ears, and throat are clear. Tongue appears somewhat bitten. NECK: Supple. EXTREMITIES: Peripheral pulses 1+ in the left lower extremity. There is a right below knee amputation. MENTAL STATUS: The patient is alert, but quite confused, disoriented, provide with a partial history, he was able to follow simple commands. CRANIAL NERVE II: Pupils both responding to light and accommodation. Extraocular movement intact. No nystagmus. CRANIAL NERVE V: Normal corneal responses. CRANIAL NERVE VII: No facial asymmetry. CRANIAL NERVE VIII: Grossly normal hearing. CRANIAL NERVES IX THROUGH XII: Tongue is in midline. Symmetric palate elevation. MOTOR EXAMINATION: Revealed a normal muscle tone. Able to lift both arms against the gravity. Able to lift both lower extremities against the gravity. Deep tendon reflexes depressed bilaterally. SENSORY EXAM: Inconsistently decreased to pin stimulation. GAIT: Not tested. IMPRESSION: 1. This is a 56-year-old man with history of chronic seizure disorder, presenting with exacerbation. 2. Ischemic cerebrovascular disease, multiple strokes. 3. Hypertension. 4. Insulin-dependent diabetes mellitus. 5. Congestive heart failure. 6. Paroxysmal atrial fibrillation. 7. Rule out vascular dementia with confusional state. 8. Status post kidney transplant status. 9. Chronic obstructive pulmonary disease. RECOMMENDATION: 1. The patient to maintain polypharmacy. This will be reviewed to hold all unessential treatment. 2. The patient to maintain on anticonvulsants, Keppra 500 mg b.i.d., this will be observed. I will increase the dose 750 mg b.i.d. 3. We will check level of Keppra in the setting of renal insufficiency. 4. EEG studies. 5. We will continue with anticoagulation and antiplatelets. Thank you for allowing me to see this interesting patient in neurological consultation. Heraclio Mary Bethea DR: CRISTOPHER JOB#: [id number] CC:
[2017-05-22 16:00] VITALS: BP 125/76
[2017-05-22 20:26] VITALS: BP 117/64
[2017-05-22] MEDS: Atorvastatin 20mg tab ORAL SCH (21:00)
[2017-05-22] MEDS: Levemir Flexpen SUBQ SCH (22:17)
[2017-05-23] VITALS (7 sets, daily range): BP systolic 116–147; BP diastolic 68–87
[2017-05-23 02:51] LABS: APPEARANCE,URINE CLEAR; KETONES,URINE NEGATIVE (NEGATIVE); LEUKOCYTE ESTERASE ,URINE 3+ (NEGATIVE); NITRITE,URINE NEGATIVE (NEGATIVE); PH,URINE 5 (4.5-8.0); PROTEIN,URINE 1+ (NEGATIVE); UROBILINOGEN,URINE NORMAL MG/DL (0.0-1.0)
[2017-05-23 03:16] LABS: BACTERIA,URINE MANY /HPF; RBC,URINE 20-30 /HPF (0 - 0); SQUAMOUS EPITHELIAL CELL,UR FEW /LPF (NONE/OCC); WBC,URINE TNTC /HPF (0 - 0)
--- NOTE | 2017-05-23 06:31 | Progress Note ---
DATE: 05/22/2017 CARDIOLOGY PROGRESS NOTE SUBJECTIVE: The patient seen and evaluated. He is somewhat more alert than yesterday and last evening. He complains only of sore throat. He apparently had a seizure last night prior to transfer to the emergency room at [place]. He has a history of prior seizures and cerebrovascular accidents as well as a renal transplant. He has not had any chest pain or shortness of breath. OBJECTIVE: VITAL SIGNS: Blood pressure 117/64, pulse 60, respiratory rate 20, and afebrile. HEENT: Temporal wasting. Pale conjunctivae. Arcus senilis. Oropharynx is clear. NECK: Supple. Jugular venous pressure normal. LUNGS: With few rhonchi. CARDIAC: Regular rhythm and rate. Normal S1 and S2 with a fourth heart sound. ABDOMEN: Soft. EXTREMITIES: Right BKA. LABORATORY DATA: Urinalysis with too numerous to count white cells. Pro-natriuretic peptide 7500. BUN 54, creatinine 1.7, and potassium 4.0. White count 7.7 and hemoglobin 12.4. IMPRESSION: 1. Chronic diastolic congestive heart failure. 2. Renal transplant. 3. Breakthrough seizure. 4. Right below knee amputation. 5. Cerebrovascular disease with prior cerebrovascular accident and dementia. 6. Insulin-requiring diabetes mellitus. 7. Peripheral artery disease. 8. Chronic obstructive pulmonary disease. 9. Coronary artery disease. 10. Paroxysmal atrial fibrillation. 11. Elevated natriuretic peptide estimated due to chronic renal disease. PLAN: 1. Hold diuresis. 2. Maintain adequate hydration. 3. Antimicrobials. 4. Skin care and DVT prophylaxis. 5. Titrate anti-failure regimen. 6. Monitor clinical parameters and trend natriuretic peptide assay. Armando Lerma M.D. DR: ADE JOB#: [id number] CC:
[2017-05-23] MEDS: NovoLOG Insulin Flexpen SUBQ SCH ×4 (06:33→22:49)
[2017-05-23] MEDS: Imdur 30mg tab ORAL SCH (08:13)
[2017-05-23] MEDS: cycloSPORINE 100mg cap ORAL SCH ×2 (08:13→17:06)
[2017-05-23] MEDS: Tums 500mg ORAL SCH (08:13)
[2017-05-23] MEDS: Mycophenolate 250mg cap ORAL SCH ×2 (08:13→17:05)
[2017-05-23] MEDS: Eliquis 2.5mg tablet ORAL SCH ×2 (08:14→17:06)
[2017-05-23] MEDS: Metoprolol Tartrate 50mg tab ORAL SCH ×2 (08:14→22:44)
[2017-05-23] MEDS: Docusate 100mg cap ORAL SCH (08:14)
[2017-05-23] MEDS: PredniSONE 5mg tab ORAL SCH (08:15)
--- NOTE | 2017-05-23 08:36 | General Progress Note ---
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 SNOMED: 721436937 (4) chronic seizure disorder, eczacerbation (5) DM renal manif type II ICD Codes: E11.29 - DM renal manif type II SNOMED: 66839928 (6) Diabetes mellitus out of control ICD Codes: E11.65 - Diabetes mellitus out of control SNOMED: 674076122 (7) Hypertension ICD Codes: I10 - Essential (primary) hypertension SNOMED: 71145335 (8) Renal insufficiency ICD Codes: N28.9 - Disorder of kidney and ureter, unspecified SNOMED: 524397577 (9) CHF (congestive heart failure) ICD Codes: I50.9 - Heart failure, unspecified SNOMED: 15604442 Status: stable, not improved Assessment/Plan sz rx per neuro IV abx added follow up cultures monitor mental status monitor for seizures bp rx monitor bs transplant meds per renal Subjective ROS Limited/Unobtainable: No Constitutional: Reports: malaise, weakness HEENT: Reports: no symptoms Cardiovascular: Reports: no symptoms Respiratory: Reports: no symptoms Gastrointestinal/Abdominal: Reports: no symptoms Genitourinary: Reports: no symptoms Neurologic/Psychiatric: Reports: pre-existing deficit, seizure Endocrine: Reports: no symptoms Hematologic/Lymphatic: Reports: no symptoms Allergies: Coded Allergies: PENICILLINS (Unverified Allergy, Unknown, 04/17/16) All Systems: reviewed and negative except above Subjective more confused this am. alert. follows simple commands. laughing inappropriately. no szs noted. no fever or chills. Objective Last 24 Hour Vital Signs Date Time Temp Pulse Resp B/P Pulse Ox O2 Delivery O2 Flow Rate FiO2 05/23/17 08:14 59 137/72 05/23/17 08:13 137/72 05/23/17 08:13 59 137/72 05/23/17 07:31 97.3 59 20 137/72 98 Room Air 05/23/17 04:12 98.4 64 20 116/68 97 Room Air 05/23/17 04:00 60 05/23/17 00:11 97.3 63 17 126/76 98 Room Air 05/22/17 23:46 62 05/22/17 22:17 62 142/73 05/22/17 20:26 97.8 60 20 117/64 96 Room Air 05/22/17 19:52 61 05/22/17 16:00 60 05/22/17 16:00 97.5 62 22 125/76 98 Room Air 05/22/17 12:00 97.7 62 21 110/59 99 Room Air 05/22/17 12:00 59 05/22/17 08:45 64 112/66 05/22/17 08:44 112/66 05/22/17 08:44 64 112/66 Intake and Output 05/22/17 05/23/17 19:00 07:00 Intake Total 240 ml Output Total 550 ml Balance 240 ml -550 ml Intake Oral 240 ml Output Urine Total 550 ml # Bowel Movements 1 Laboratory Tests 05/23/17 02:36: Urine Color Yellow, Urine Appearance Clear, Urine pH 5, Urine Specific [place] 1.015, Urine Protein 1+H, Urine Glucose (UA) Negative, Urine Ketones Negative, Urine Occult Blood 5+H, Urine Nitrite Negative, Urine Bilirubin Negative, Urine Urobilinogen Normal, Urine Leukocyte Esterase 3+H, Urine RBC 20-30H, Urine WBC TntcH, Urine Squamous Epithelial Cells Few, Urine Bacteria ManyH 05/23/17 07:20: Sodium Level [Pending], Potassium Level [Pending], Chloride Level [Pending], Carbon Dioxide Level [Pending], Blood Urea Nitrogen [Pending], Creatinine [ Pending], Estimat Glomerular Filtration Rate [Pending], Glucose Level [Pending] , Calcium Level [Pending] Height (Feet): 5 Height (Inches): 5.00 Weight (Pounds): 143 General Appearance: WD/WN, confused Neck: normal alignment, supple Cardiovascular: normal rate, regular rhythm Respiratory/Chest: chest wall non-tender, lungs clear, normal breath sounds, no respiratory distress Abdomen: normal bowel sounds, non tender, soft, no organomegaly Edema: no edema noted Arm (L), no edema noted Arm (R), no edema noted Leg (L), no edema noted Leg (R), no edema noted Pedal (L), no edema noted Pedal (R), no edema noted Generalized Neurologic: disoriented VICTOR MANUEL DO May 23, 2017 08:36
[2017-05-23 09:06] LABS: CALCIUM 9.7 mg/dL (8.6-10.2); CREATININE 1.9 mg/dL (0.7-1.2); GLOMERULAR FILTRATION RATE 36.6 mL/min (>60); POTASSIUM 3.5 mEQ/L (3.4-4.9)
[2017-05-23] MEDS: Cefepime HCl 1 GM in D5W 55 ML IVPB SCH (10:32)
--- NOTE | 2017-05-23 12:26 | Neurology Progress Note ---
Interim History Interim History ROS Limited/Unobtainable: No Complaints: feel better no sz today Events: more coherent Objective Physical Exam Last Vital Signs Date Time Temp Pulse Resp B/P Pulse Ox O2 Delivery O2 Flow Rate FiO2 05/23/17 11:52 97.1 59 20 147/84 97 Room Air Laboratory Tests Test 05/23/17 02:36 05/23/17 07:20 Urine Color Yellow Urine Appearance Clear Urine pH 5 (4.5-8.0) Urine Specific [place] 1.015 (1.005-1.035) Urine Protein 1+ (NEGATIVE) H Urine Glucose (UA) Negative (NEGATIVE) Urine Ketones Negative (NEGATIVE) Urine Occult Blood 5+ (NEGATIVE) H Urine Nitrite Negative (NEGATIVE) Urine Bilirubin Negative (NEGATIVE) Urine Urobilinogen Normal MG/DL (0.0-1.0) Urine Leukocyte Esterase 3+ (NEGATIVE) H Urine RBC 20-30 /HPF (0 - 0) H Urine WBC Tntc /HPF (0 - 0) H Urine Squamous Epithelial Cells Few /LPF (NONE/OCC) Urine Bacteria Many /HPF (NONE) H Sodium Level 134 mEQ/L (135-145) L Potassium Level 3.5 mEQ/L (3.4-4.9) Chloride Level 91 mEQ/L (98-107) L Carbon Dioxide Level 29 mEQ/L (20-30) Anion Gap 14 (5-15) Blood Urea Nitrogen 61 mg/dL (7-23) H Creatinine 1.9 mg/dL (0.7-1.2) H Estimat Glomerular Filtration Rate 36.6 mL/min (>60) Glucose Level 116 mg/dL (74-106) H Calcium Level 9.7 mg/dL (8.6-10.2) General: well developed, no acute distress Head: normocophalic, atraumatic Neck: no rigidity Neurologic Exam Mental Status: awake, alert, normal cognition - slightly confused, inappropriate, other - sl confused Speech: normal speech, no dysarthia Language: normal language, no aphasia Cranial Nerve II: fundus normal, visual tellez, no papilledema Cranial Nerves III, IV, : PERRLA, EOMI, pupils Cranial Nerve V: normal facial sensations, temporales function normal, masseters function normal, pterygoids function normal Cranial Nerve VII: no facial asymmetry, normal facial expressions Cranial Nerve VIII: normal hearing, no nystagmus Cranial Nerve IX: normal palate elevation, gag response Cranial Nerve X: no voice hoarseness Cranial Nerve XI: SCM symmetric, trapezii function normal Cranial Nerve XII: tongue midline, no tongue atrophy/fasciculations Motor System: normal muscle tone, no involuntary movement Sensory: normal pinprick Coordination: normal finger to nose bilaterally Deep Tendon Reflexes: 0 ankle (L), 0 ankle (R), 0 bicep (L), 0 bicep (R), 0 brachioradialis (L), 0 brachioradialis (R), 0 knee (L), 0 knee (R), 0 tricep (L) , 0 tricep (R) Reflexes: mute plantar (L), mute plantar (R) Impression/Recommendations Problems: (1) Seizure disorder (2) Confusional state (3) UTI (urinary tract infection) (4) Renal insufficiency (5) DM renal manif type II Status: stable, not improved Recommendations #[id number] keppra 750mg bid EEG no sz noted ALEX HERBERT May 23, 2017 12:26
--- NOTE | 2017-05-23 16:18 | Nephrology Progress Note ---
Assessment/Plan Problem List: (1) Neurogenic bladder (2) CKD stage 3 secondary to diabetes (3) Seizure disorder (4) Renal transplant recipient (5) Confusional state (6) UTI (urinary tract infection) Plan bun and creatinine a bit higher , likely from lasix. observe. started antibiotics for uti Subjective Constitutional: Reports: weakness HEENT: Reports: no symptoms Genitourinary: Reports: incontinence, no symptoms Neurologic/Psychiatric: Reports: pre-existing deficit Objective Objective Last 24 Hour Vital Signs Date Time Temp Pulse Resp B/P Pulse Ox O2 Delivery O2 Flow Rate FiO2 05/23/17 16:09 97.1 61 20 129/87 100 Room Air 05/23/17 12:00 59 05/23/17 11:52 97.1 59 20 147/84 97 Room Air 05/23/17 08:14 59 137/72 05/23/17 08:13 137/72 05/23/17 08:13 59 137/72 05/23/17 08:00 60 05/23/17 07:31 97.3 59 20 137/72 98 Room Air 05/23/17 04:12 98.4 64 20 116/68 97 Room Air 05/23/17 04:00 60 05/23/17 00:11 97.3 63 17 126/76 98 Room Air 05/22/17 23:46 62 05/22/17 22:17 62 142/73 05/22/17 20:26 97.8 60 20 117/64 96 Room Air 05/22/17 19:52 61 Intake and Output 05/22/17 05/23/17 19:00 07:00 Intake Total 240 ml Output Total 550 ml Balance 240 ml -550 ml Intake Oral 240 ml Output Urine Total 550 ml # Bowel Movements 1 Laboratory Tests 05/23/17 02:36: Urine Color Yellow, Urine Appearance Clear, Urine pH 5, Urine Specific [place] 1.015, Urine Protein 1+H, Urine Glucose (UA) Negative, Urine Ketones Negative, Urine Occult Blood 5+H, Urine Nitrite Negative, Urine Bilirubin Negative, Urine Urobilinogen Normal, Urine Leukocyte Esterase 3+H, Urine RBC 20-30H, Urine WBC TntcH, Urine Squamous Epithelial Cells Few, Urine Bacteria ManyH 05/23/17 07:20: Sodium Level 134L, Potassium Level 3.5, Chloride Level 91L, Carbon Dioxide Level 29, Anion Gap 14, Blood Urea Nitrogen 61H, Creatinine 1.9H, Estimat Glomerular Filtration Rate 36.6, Glucose Level 116H, Calcium Level 9.7 Height (Feet): 5 Height (Inches): 5.00 Weight (Pounds): 143 General Appearance: no apparent distress, alert EENT: normal ENT inspection Neck: normal alignment Cardiovascular: normal rate Respiratory/Chest: lungs clear Abdomen: non tender, soft, no organomegaly Extremities: other - r bka, no edema 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
[2017-05-23] MEDS: Atorvastatin 20mg tab ORAL SCH (22:45)
[2017-05-23] MEDS: Levemir Flexpen SUBQ SCH (22:50)
[2017-05-24 03:58] VITALS: BP 148/73
[2017-05-24] MEDS: NovoLOG Insulin Flexpen SUBQ SCH ×4 (06:21→21:21)
--- NOTE | 2017-05-24 07:47 | Progress Note ---
DATE: 05/23/2017 CARDIOLOGY PROGRESS NOTE SUBJECTIVE: No new seizures. Confused, but alert. No shortness of breath of current. OBJECTIVE: VITAL SIGNS: Blood pressure is 137/72, pulse 60, respirations 20, afebrile. LUNGS: Clear. CARDIAC: Regular. Normal S1 and S2. ABDOMEN: Soft. EXTREMITIES: Right BKA. No edema. LABORATORY DATA: Potassium 3.5, sodium 134, chloride 91, bicarbonate 29, BUN 61, and creatinine 1.9. IMPRESSION: 1. Seizure. 2. Renal transplant. 3. Acute on chronic renal failure. 4. Chronic diastolic congestive heart failure. 5. Hypertensive heart disease. 6. Paroxysmal atrial fibrillation. PLAN: Continue diuresis, monitor volume status and cardiorenal parameters, and antiseizure therapy. Armando Lerma M.D. DR: DANNY JOB#: [id number] CC:
[2017-05-24 07:53] LABS: ALBUMIN/GLOBULIN RATIO 1.2 (1.0-2.7); CALCIUM 9.4 mg/dL (8.6-10.2); CREATININE 1.8 mg/dL (0.7-1.2); GLOMERULAR FILTRATION RATE 38.9 mL/min (>60); POTASSIUM 4.2 mEQ/L (3.4-4.9); TOTAL PROTEIN 7.3 g/dL (6.6-8.7)
[2017-05-24 08:00] VITALS: BP 154/80
[2017-05-24] MEDS: PredniSONE 5mg tab ORAL SCH (08:58)
[2017-05-24] MEDS: Tums 500mg ORAL SCH (08:58)
[2017-05-24] MEDS: cycloSPORINE 100mg cap ORAL SCH ×2 (08:59→17:52)
[2017-05-24] MEDS: Eliquis 2.5mg tablet ORAL SCH ×2 (08:59→18:02)
[2017-05-24] MEDS: Mycophenolate 250mg cap ORAL SCH ×2 (09:00→17:52)
[2017-05-24] MEDS: Imdur 30mg tab ORAL SCH (09:00)
[2017-05-24] MEDS: Docusate 100mg cap ORAL SCH (09:00)
[2017-05-24] MEDS: Metoprolol Tartrate 50mg tab ORAL SCH ×2 (09:01→21:00)
[2017-05-24] MEDS: Cefepime HCl 1 GM in D5W 55 ML IVPB SCH (11:10)
[2017-05-24 12:00] VITALS: BP 144/62
--- NOTE | 2017-05-24 12:42 | General Progress Note ---
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 SNOMED: 265208489 (4) chronic seizure disorder, eczacerbation (5) DM renal manif type II ICD Codes: E11.29 - DM renal manif type II SNOMED: 02617585 (6) Diabetes mellitus out of control ICD Codes: E11.65 - Diabetes mellitus out of control SNOMED: 537029843 (7) Hypertension ICD Codes: I10 - Essential (primary) hypertension SNOMED: 58720598 (8) Renal insufficiency ICD Codes: N28.9 - Disorder of kidney and ureter, unspecified SNOMED: 186864794 (9) CHF (congestive heart failure) ICD Codes: I50.9 - Heart failure, unspecified SNOMED: 74079650 (10) Sepsis ICD Codes: A41.9 - Sepsis, unspecified organism SNOMED: 77651124 Status: stable, progressing Assessment/Plan sz rx per neuro IV abx added follow up cultures monitor mental status monitor for seizures bp rx monitor bs transplant meds per renal message left with sister Subjective ROS Limited/Unobtainable: No Constitutional: Reports: weakness HEENT: Reports: no symptoms Cardiovascular: Reports: no symptoms Respiratory: Reports: no symptoms Gastrointestinal/Abdominal: Reports: no symptoms Genitourinary: Reports: no symptoms Neurologic/Psychiatric: Reports: pre-existing deficit, seizure Endocrine: Reports: no symptoms Hematologic/Lymphatic: Reports: anemia Allergies: Coded Allergies: PENICILLINS (Unverified Allergy, Unknown, 04/17/16) All Systems: reviewed and negative except above Subjective more alert. still confused. denies cp/sob. no headaches. Objective Last 24 Hour Vital Signs Date Time Temp Pulse Resp B/P Pulse Ox O2 Delivery O2 Flow Rate FiO2 05/24/17 09:01 62 154/80 05/24/17 09:00 154/80 05/24/17 09:00 62 154/80 05/24/17 08:00 96.8 62 19 154/80 96 Room Air 05/24/17 08:00 60 05/24/17 04:00 62 7/28/17 03:58 97.7 63 21 148/73 96 Room Air 05/24/17 00:00 61 05/23/17 23:56 97.2 59 21 142/70 94 Room Air 05/23/17 22:44 61 128/74 05/23/17 20:04 96.8 61 20 128/74 96 Room Air 05/23/17 20:00 60 05/23/17 16:09 97.1 61 20 129/87 100 Room Air 05/23/17 16:00 57 Intake and Output 05/23/17 05/24/17 19:00 07:00 Intake Total 1705 ml Output Total 800 ml 700 ml Balance 905 ml -700 ml Intake Oral 1650 ml IV Total 55 ml Output Urine Total 800 ml 700 ml # Voids 2 Laboratory Tests 05/24/17 04:00: Sodium Level 140, Potassium Level 4.2, Chloride Level 97L, Carbon Dioxide Level 30, Anion Gap 13, Blood Urea Nitrogen 59H, Creatinine 1.8H, Estimat Glomerular Filtration Rate 38.9, Glucose Level 231#H, Calcium Level 9.4, Total Bilirubin 0.5, Aspartate Amino Transf (AST/SGOT) 20, Alanine Aminotransferase (ALT/SGPT) 8 , Alkaline Phosphatase 56, Total Protein 7.3, Albumin 4.0, Globulin 3.3, Albumin /Globulin Ratio 1.2 Height (Feet): 5 Height (Inches): 5.00 Weight (Pounds): 143 General Appearance: WD/WN, alert Neck: supple Cardiovascular: normal rate Respiratory/Chest: chest wall non-tender, lungs clear, normal breath sounds, no respiratory distress Abdomen: normal bowel sounds, non tender, soft, no organomegaly Edema: no edema noted Arm (L), no edema noted Arm (R), no edema noted Leg (L), no edema noted Leg (R), no edema noted Pedal (L), no edema noted Pedal (R), no edema noted 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
--- NOTE | 2017-05-24 12:48 | Nephrology Progress Note ---
Assessment/Plan Problem List: (1) Neurogenic bladder (2) CKD stage 3 secondary to diabetes (3) Seizure disorder (4) Renal transplant recipient (5) Confusional state (6) UTI (urinary tract infection) Plan bun and creatinine a bit higher , likely from lasix. observe. started antibiotics for uti Subjective HEENT: Reports: no symptoms Genitourinary: Reports: incontinence, no symptoms Neurologic/Psychiatric: Reports: pre-existing deficit Objective Objective Last 24 Hour Vital Signs Date Time Temp Pulse Resp B/P Pulse Ox O2 Delivery O2 Flow Rate FiO2 05/24/17 09:01 62 154/80 05/24/17 09:00 154/80 05/24/17 09:00 62 154/80 05/24/17 08:00 96.8 62 19 154/80 96 Room Air 05/24/17 08:00 60 05/24/17 04:00 62 05/24/17 03:58 97.7 63 21 148/73 96 Room Air 05/24/17 00:00 61 05/23/17 23:56 97.2 59 21 142/70 94 Room Air 05/23/17 22:44 61 128/74 05/23/17 20:04 96.8 61 20 128/74 96 Room Air 05/23/17 20:00 60 05/23/17 16:09 97.1 61 20 129/87 100 Room Air 05/23/17 16:00 57 Intake and Output 05/23/17 05/24/17 19:00 07:00 Intake Total 1705 ml Output Total 800 ml 700 ml Balance 905 ml -700 ml Intake Oral 1650 ml IV Total 55 ml Output Urine Total 800 ml 700 ml # Voids 2 Laboratory Tests 05/24/17 04:00: Sodium Level 140, Potassium Level 4.2, Chloride Level 97L, Carbon Dioxide Level 30, Anion Gap 13, Blood Urea Nitrogen 59H, Creatinine 1.8H, Estimat Glomerular Filtration Rate 38.9, Glucose Level 231#H, Calcium Level 9.4, Total Bilirubin 0.5, Aspartate Amino Transf (AST/SGOT) 20, Alanine Aminotransferase (ALT/SGPT) 8 , Alkaline Phosphatase 56, Total Protein 7.3, Albumin 4.0, Globulin 3.3, Albumin /Globulin Ratio 1.2 Height (Feet): 5 Height (Inches): 5.00 Weight (Pounds): 143 General Appearance: no apparent distress, alert EENT: normal ENT inspection Neck: normal alignment Cardiovascular: normal rate Respiratory/Chest: lungs clear Extremities: non-tender, other - r bka, no edema 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
[2017-05-24 16:00] VITALS: BP 143/41
--- NOTE | 2017-05-24 19:02 | Urology Progress Note ---
Assessment/Plan Assessment/Plan urinary retention BPH atonic bladder UTI/colonized hematuria renal atrophy abx as ordered boggs indwelling, change soon proscar consider voiding trial? will most likely fail cysto later thanks, Subjective Allergies: Coded Allergies: PENICILLINS (Unverified Allergy, Unknown, 04/17/16) Subjective initial evaluation, all noted, pt well known to me, hx of BPH, urinary retention , atonic bladder recurrent UTI's, chronic boggs, ESRD/renal tx pt had office appt with me today, but has been admitted with seizures PMH/chart all noted Objective Last 24 Hour Vital Signs Date Time Temp Pulse Resp B/P Pulse Ox O2 Delivery O2 Flow Rate FiO2 05/24/17 16:00 58 05/24/17 16:00 97.3 58 19 143/41 95 Room Air 05/24/17 12:12 58 05/24/17 12:00 97.9 62 19 144/62 95 Room Air 05/24/17 09:01 62 154/80 05/24/17 09:00 154/80 05/24/17 09:00 62 154/80 05/24/17 08:00 96.8 62 19 154/80 96 Room Air 05/24/17 08:00 60 05/24/17 07:34 60 05/24/17 04:00 62 05/24/17 03:58 97.7 63 21 148/73 96 Room Air 05/24/17 00:00 61 05/23/17 23:56 97.2 59 21 142/70 94 Room Air 05/23/17 22:44 61 128/74 05/23/17 20:04 96.8 61 20 128/74 96 Room Air 05/23/17 20:00 60 Intake and Output 05/23/17 05/24/17 19:00 07:00 Intake Total 1705 ml Output Total 800 ml 700 ml Balance 905 ml -700 ml Intake Oral 1650 ml IV Total 55 ml Output Urine Total 800 ml 700 ml # Voids 2 Microbiology Date/Time Source Procedure Growth Status 05/22/17 08:00 Nasal Nares MRSA Culture - Final NO METHICILLIN RESISTANT STAPH AUREUS... Complete 05/23/17 02:36 Urine,Clean Catch Urine Culture - Preliminary Gram Negative Bacillus 1 Resulted 05/22/17 08:00 Rectum VRE Culture Pending Received Current Medications Medications (Trade) Dose Ordered Sig/Benita Route PRN Reason Start Time Stop Time Status Last Admin Dose Admin Acetaminophen/ Hydrocodone Bitart ([place] 5/325) 1 tab Q6H PRN ORAL For Pain 05/22/17 01:30 05/29/17 01:29 Amlodipine Besylate (Norvasc) 5 mg DAILY ORAL 05/22/17 09:00 06/21/17 08:59 05/24/17 09:00 Apixaban (Eliquis) 2.5 mg BID ORAL 05/22/17 09:00 06/21/17 08:59 05/24/17 18:02 Atorvastatin Calcium (Lipitor) 20 mg BEDTIME ORAL 05/22/17 21:00 06/21/17 20:59 05/23/17 22:45 Calcium Carbonate (Tums) 500 mg DAILY ORAL 05/22/17 09:00 06/21/17 08:59 05/24/17 08:58 Cefepime HCl/ Dextrose (Maxipime/D5W) 55 ml @ 110 mls/hr Q24H IVPB 05/23/17 11:00 05/30/17 10:59 05/24/17 11:10 Cyclosporine (SandIMMUNE) 100 mg TWICE A DAY ORAL 05/22/17 09:00 06/21/17 08:59 05/24/17 17:52 Dextrose (Dextrose 50%) STAT PRN IV Hypoglycemia 05/22/17 01:45 06/21/17 01:44 Docusate Sodium (Colace) 100 mg DAILY ORAL 05/22/17 09:00 06/21/17 08:59 05/24/17 09:00 Finasteride (Proscar) 5 mg DAILY ORAL 05/22/17 09:00 06/21/17 08:59 05/24/17 08:58 Hydralazine HCl (Apresoline) 25 mg Q6HR PRN ORAL For High Blood Pressure 05/22/17 04:15 06/21/17 04:14 Insulin Aspart (NovoLOG) BEFORE MEALS AND HS SUBQ 05/22/17 06:30 06/21/17 06:29 05/24/17 17:54 Insulin Detemir (Levemir) 12 units BEDTIME SUBQ 05/22/17 21:00 06/21/17 20:59 05/23/17 22:50 Isosorbide Mononitrate (Imdur) 30 mg DAILY ORAL 05/22/17 09:00 06/21/17 08:59 05/24/17 09:00 Levetiracetam 750 mg 750 mg Q12HR ORAL 05/22/17 12:00 06/21/17 11:59 05/24/17 09:10 Metoprolol Tartrate (Lopressor) 50 mg Q12HR ORAL 05/22/17 09:00 06/21/17 08:59 05/24/17 09:01 Mycophenolate Mofetil (Cellcept) 500 mg BID ORAL 05/22/17 09:00 06/21/17 08:59 05/24/17 17:52 Pantoprazole (Protonix) 40 mg ACBREAKFAST ORAL 05/22/17 06:30 06/21/17 06:29 05/24/17 06:18 Prednisone (predniSONE) 5 mg DAILY ORAL 05/22/17 09:00 06/21/17 08:59 05/24/17 08:58 Laboratory Tests 05/24/17 04:00: Sodium Level 140, Potassium Level 4.2, Chloride Level 97L, Carbon Dioxide Level 30, Anion Gap 13, Blood Urea Nitrogen 59H, Creatinine 1.8H, Estimat Glomerular Filtration Rate 38.9, Glucose Level 231#H, Calcium Level 9.4, Total Bilirubin 0.5, Aspartate Amino Transf (AST/SGOT) 20, Alanine Aminotransferase (ALT/SGPT) 8 , Alkaline Phosphatase 56, Total Protein 7.3, Albumin 4.0, Globulin 3.3, Albumin /Globulin Ratio 1.2 Height (Feet): 5 Height (Inches): 5.00 Weight (Pounds): 143 Objective boggs indwelling, harjinder urine last renal u/s, jun noted JAMISON CORDON May 24, 2017 19:02
[2017-05-24 20:00] VITALS: BP 127/72
[2017-05-24] MEDS: Atorvastatin 20mg tab ORAL SCH (21:18)
[2017-05-24] MEDS: Levemir Flexpen SUBQ SCH (21:22)
--- NOTE | 2017-05-24 22:32 | Electroencephalogram ---
DATE OF PROCEDURE: 05/22/2017 ELECTROENCEPHALOGRAPHY REPORT HISTORY: This is a 56-year-old man with chronic seizure disorder, renal failure, CHF, and previous strokes. Currently, maintained on Keppra, Norvasc and Lipitor. TECHNIQUE: EEG was done using 18 electrodes placed scalp to scalp, scalp to ear montages according to 10/20 International System. During the recording, described as awake or drowsy, but fairly cooperative. Most wakeful portions of recording, background activity consists of a low to medium voltage, six cycles per second theta activities bilaterally with intermittently appearing polymorphic delta transients or frontal intermittent rhythmic delta activity runs bilaterally, 1-2 per second. The patient described as being in and out of drowsiness with background remaining in the theta range. No asymmetry from side to side. There were no spike or wave activities noted. IMPRESSION: Abnormal electroencephalogram in presence of diffuse slowing with a frontal intermittent rhythmic delta activity bilaterally. COMMENT: Above abnormality indicate presence of moderate diffuse cortical abnormality, frequently observed with toxic, metabolic or diffuse structural lesions. Absence of paroxysmal event does not rule out seizure disorder. Heraclio Bethea M.D. DR: DEMETRIA JOB#: [id number] CC:
[2017-05-25 00:05] VITALS: BP 145/74
[2017-05-25 04:00] VITALS: BP 150/74
[2017-05-25] MEDS: NovoLOG Insulin Flexpen SUBQ SCH ×5 (06:12→21:13)
[2017-05-25 07:33] VITALS: BP 123/59
--- NOTE | 2017-05-25 08:46 | General Progress Note ---
Assessment/Plan Problem List: (1) UTI (urinary tract infection) ICD Codes: N39.0 - Urinary tract infection, site not specified SNOMED: 92552462 (2) Altered mental status ICD Codes: R41.82 - Altered mental status, unspecified SNOMED: 776432152 (3) Confusional state ICD Codes: F44.89 - Other dissociative and conversion disorders SNOMED: 885656624 (4) chronic seizure disorder, eczacerbation (5) DM renal manif type II ICD Codes: E11.29 - DM renal manif type II SNOMED: 90195609 (6) Diabetes mellitus out of control ICD Codes: E11.65 - Diabetes mellitus out of control SNOMED: 995715931 (7) Hypertension ICD Codes: I10 - Essential (primary) hypertension SNOMED: 55878619 (8) Renal insufficiency ICD Codes: N28.9 - Disorder of kidney and ureter, unspecified SNOMED: 093168626 (9) CHF (congestive heart failure) ICD Codes: I50.9 - Heart failure, unspecified SNOMED: 28176990 (10) Sepsis ICD Codes: A41.9 - Sepsis, unspecified organism SNOMED: 55241538 Status: stable, progressing Assessment/Plan sz rx per neuro IV abx added hydrate follow up cultures monitor mental status monitor for seizures bp rx monitor bs transplant meds per renal pt/ot Subjective ROS Limited/Unobtainable: Yes Constitutional: Reports: malaise, weakness HEENT: Reports: no symptoms Cardiovascular: Reports: no symptoms Respiratory: Reports: no symptoms Gastrointestinal/Abdominal: Reports: no symptoms Genitourinary: Reports: incontinence Neurologic/Psychiatric: Reports: pre-existing deficit Endocrine: Reports: no symptoms Hematologic/Lymphatic: Reports: anemia Allergies: Coded Allergies: PENICILLINS (Unverified Allergy, Unknown, 04/17/16) All Systems: reviewed and negative except above Subjective more alert. still confused. denies cp/sob. no headaches. per family pt still not at baseline. improving though. labs noted. Objective Last 24 Hour Vital Signs Date Time Temp Pulse Resp B/P Pulse Ox O2 Delivery O2 Flow Rate FiO2 05/25/17 07:33 97.7 60 20 123/59 95 Room Air 05/25/17 04:00 97.5 62 20 150/74 98 05/25/17 03:35 65 05/25/17 00:05 97.0 62 20 145/74 95 Room Air 05/24/17 23:33 61 05/24/17 21:00 57 127/72 05/24/17 20:00 98.0 59 20 127/72 98 Room Air 05/24/17 19:13 60 05/24/17 16:00 58 05/24/17 16:00 97.3 58 19 143/41 95 Room Air 05/24/17 12:12 58 05/24/17 12:00 97.9 62 19 144/62 95 Room Air 05/24/17 09:01 62 154/80 05/24/17 09:00 154/80 05/24/17 09:00 62 154/80 Intake and Output 05/24/17 05/25/17 19:00 07:00 Intake Total 155 ml Output Total 1000 ml 600 ml Balance -845 ml -600 ml Intake Oral 100 ml IV Total 55 ml Output Urine Total 1000 ml 600 ml Height (Feet): 5 Height (Inches): 5.00 Weight (Pounds): 143 Objective General Appearance: WD/WN, alert Neck: supple Cardiovascular: normal rate Respiratory/Chest: chest wall non-tender, lungs clear, normal breath sounds, no respiratory distress Abdomen: normal bowel sounds, non tender, soft, no organomegaly Edema: no edema noted Arm (L), no edema noted Arm (R), no edema noted Leg (L), no edema noted Leg (R), no edema noted Pedal (L), no edema noted Pedal (R), no edema noted Generalized. 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
--- NOTE | 2017-05-25 09:24 | Urology Progress Note ---
Assessment/Plan Assessment/Plan urinary retention BPH atonic bladder UTI/colonized hematuria renal atrophy abx as ordered boggs indwelling, change soon proscar add flomax or urecholine? consider voiding trial? will most likely fail cysto later Subjective Allergies: Coded Allergies: PENICILLINS (Unverified Allergy, Unknown, 04/17/16) Subjective all noted, feels fair Objective Last 24 Hour Vital Signs Date Time Temp Pulse Resp B/P Pulse Ox O2 Delivery O2 Flow Rate FiO2 05/25/17 07:33 97.7 60 20 123/59 95 Room Air 05/25/17 04:00 97.5 62 20 150/74 98 05/25/17 03:35 65 05/25/17 00:05 97.0 62 20 145/74 95 Room Air 05/24/17 23:33 61 05/24/17 21:00 57 127/72 05/24/17 20:00 98.0 59 20 127/72 98 Room Air 05/24/17 19:13 60 05/24/17 16:00 58 05/24/17 16:00 97.3 58 19 143/41 95 Room Air 05/24/17 12:12 58 05/24/17 12:00 97.9 62 19 144/62 95 Room Air Intake and Output 05/24/17 05/25/17 19:00 07:00 Intake Total 155 ml Output Total 1000 ml 600 ml Balance -845 ml -600 ml Intake Oral 100 ml IV Total 55 ml Output Urine Total 1000 ml 600 ml Microbiology Date/Time Source Procedure Growth Status 05/22/17 08:00 Nasal Nares MRSA Culture - Final NO METHICILLIN RESISTANT STAPH AUREUS... Complete 05/23/17 02:36 Urine,Clean Catch Urine Culture - Final Escherichia Coli Complete 05/22/17 08:00 Rectum VRE Culture Pending Received Current Medications Medications (Trade) Dose Ordered Sig/Benita Route PRN Reason Start Time Stop Time Status Last Admin Dose Admin Acetaminophen/ Hydrocodone Bitart ([place] 5/325) 1 tab Q6H PRN ORAL For Pain 05/22/17 01:30 05/29/17 01:29 Amlodipine Besylate (Norvasc) 5 mg DAILY ORAL 05/22/17 09:00 06/21/17 08:59 05/24/17 09:00 Apixaban (Eliquis) 2.5 mg BID ORAL 05/22/17 09:00 06/21/17 08:59 05/24/17 18:02 Atorvastatin Calcium (Lipitor) 20 mg BEDTIME ORAL 05/22/17 21:00 06/21/17 20:59 05/24/17 21:18 Calcium Carbonate (Tums) 500 mg DAILY ORAL 05/22/17 09:00 06/21/17 08:59 05/24/17 08:58 Cefepime HCl 1 gm/ Dextrose 55 ml @ 110 mls/hr Q24H IVPB 05/23/17 11:00 05/30/17 10:59 05/24/17 11:10 Cyclosporine (SandIMMUNE) 100 mg TWICE A DAY ORAL 05/22/17 09:00 06/21/17 08:59 05/24/17 17:52 Dextrose (Dextrose 50%) STAT PRN IV Hypoglycemia 05/22/17 01:45 06/21/17 01:44 Docusate Sodium (Colace) 100 mg DAILY ORAL 05/22/17 09:00 06/21/17 08:59 05/24/17 09:00 Finasteride (Proscar) 5 mg DAILY ORAL 05/22/17 09:00 06/21/17 08:59 05/24/17 08:58 Hydralazine HCl (Apresoline) 25 mg Q6HR PRN ORAL For High Blood Pressure 05/22/17 04:15 06/21/17 04:14 Insulin Aspart (NovoLOG) BEFORE MEALS AND HS SUBQ 05/22/17 06:30 06/21/17 06:29 05/24/17 21:21 Insulin Detemir (Levemir) 12 units BEDTIME SUBQ 05/22/17 21:00 06/21/17 20:59 05/24/17 21:22 Isosorbide Mononitrate (Imdur) 30 mg DAILY ORAL 05/22/17 09:00 06/21/17 08:59 05/24/17 09:00 Levetiracetam 750 mg 750 mg Q12HR ORAL 05/22/17 12:00 06/21/17 11:59 05/24/17 21:19 Metoprolol Tartrate (Lopressor) 50 mg Q12HR ORAL 05/22/17 09:00 06/21/17 08:59 7/28/17 09:01 Mycophenolate Mofetil (Cellcept) 500 mg BID ORAL 05/22/17 09:00 06/21/17 08:59 05/24/17 17:52 Pantoprazole (Protonix) 40 mg ACBREAKFAST ORAL 05/22/17 06:30 06/21/17 06:29 05/25/17 06:09 Prednisone (predniSONE) 5 mg DAILY ORAL 05/22/17 09:00 06/21/17 08:59 05/24/17 08:58 Sodium Chloride (Sodium Chloride 1000ml bag) 1,000 ml @ 50 mls/hr Q20H IV 05/25/17 09:00 06/24/17 08:59 Height (Feet): 5 Height (Inches): 5.00 Weight (Pounds): 143 Objective boggs indwelling, harjinder urine last renal u/s, jun noted JAMISON CORDON May 25, 2017 09:24
[2017-05-25] MEDS: Metoprolol Tartrate 50mg tab ORAL SCH ×2 (09:38→21:11)
[2017-05-25] MEDS: Imdur 30mg tab ORAL SCH (09:38)
[2017-05-25] MEDS: PredniSONE 5mg tab ORAL SCH (09:39)
[2017-05-25] MEDS: Tums 500mg ORAL SCH (09:39)
[2017-05-25] MEDS: Eliquis 2.5mg tablet ORAL SCH ×2 (09:39→17:59)
[2017-05-25] MEDS: cycloSPORINE 100mg cap ORAL SCH ×2 (09:39→17:59)
[2017-05-25] MEDS: Mycophenolate 250mg cap ORAL SCH ×2 (09:39→17:59)
[2017-05-25] MEDS: Docusate 100mg cap ORAL SCH (09:40)
[2017-05-25] MEDS: Cefepime HCl 1 GM in D5W 55 ML IVPB SCH (11:34)
[2017-05-25 11:47] VITALS: BP 122/67
--- NOTE | 2017-05-25 12:10 | Nephrology Progress Note ---
Assessment/Plan Problem List: (1) Neurogenic bladder (2) CKD stage 3 secondary to diabetes (3) Seizure disorder (4) Renal transplant recipient (5) Confusional state (6) UTI (urinary tract infection) Plan bun and creatinine stabilizing , likely from lasix. observe. started antibiotics for uti Subjective Constitutional: Reports: weakness Genitourinary: Reports: incontinence Neurologic/Psychiatric: Reports: pre-existing deficit Objective Objective Last 24 Hour Vital Signs Date Time Temp Pulse Resp B/P Pulse Ox O2 Delivery O2 Flow Rate FiO2 05/25/17 11:47 96.4 58 20 122/67 96 Room Air 05/25/17 09:40 60 123/59 05/25/17 09:38 123/59 05/25/17 09:38 60 123/59 05/25/17 07:33 97.7 60 20 123/59 95 Room Air 05/25/17 04:00 97.5 62 20 150/74 98 05/25/17 03:35 65 05/25/17 00:05 97.0 62 20 145/74 95 Room Air 05/24/17 23:33 61 05/24/17 21:00 57 127/72 05/24/17 20:00 98.0 59 20 127/72 98 Room Air 05/24/17 19:13 60 05/24/17 16:00 58 05/24/17 16:00 97.3 58 19 143/41 95 Room Air 05/24/17 12:12 58 Intake and Output 05/24/17 05/25/17 19:00 07:00 Intake Total 155 ml Output Total 1000 ml 600 ml Balance -845 ml -600 ml Intake Oral 100 ml IV Total 55 ml Output Urine Total 1000 ml 600 ml Height (Feet): 5 Height (Inches): 5.00 Weight (Pounds): 143 General Appearance: no apparent distress EENT: PERRL/EOMI Neck: normal alignment Cardiovascular: normal rate Respiratory/Chest: lungs clear Abdomen: non tender Extremities: other - r bka no steve ma 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
[2017-05-25] MEDS ORDERED: NS 275ml ONE (13:52)
[2017-05-25] MEDS ORDERED: Tubing IV Secondary IV ONE (13:52)
[2017-05-25 15:30] VITALS: BP 108/57
[2017-05-25] MEDS ORDERED: DiphenhydrAMINE 50mg/ml Inj IVP PRN (16:30)
[2017-05-25 20:00] VITALS: BP 137/76
[2017-05-25] MEDS: Atorvastatin 20mg tab ORAL SCH (21:12)
[2017-05-25] MEDS: Levemir Flexpen SUBQ SCH (21:13)
[2017-05-26] VITALS (7 sets, daily range): BP systolic 133–160; BP diastolic 67–82
[2017-05-26] MEDS: NovoLOG Insulin Flexpen SUBQ SCH ×4 (06:10→21:41)
[2017-05-26 07:40] LABS: ALBUMIN/GLOBULIN RATIO 1.3 (1.0-2.7); CALCIUM 9.3 mg/dL (8.6-10.2); CREATININE 1.5 mg/dL (0.7-1.2); GLOMERULAR FILTRATION RATE 48.1 mL/min (>60); POTASSIUM 3.9 mEQ/L (3.4-4.9); TOTAL PROTEIN 6.9 g/dL (6.6-8.7)
[2017-05-26] MEDS: cycloSPORINE 100mg cap ORAL SCH ×2 (09:06→17:30)
[2017-05-26] MEDS: Docusate 100mg cap ORAL SCH (09:06)
[2017-05-26] MEDS: Tums 500mg ORAL SCH (09:07)
[2017-05-26] MEDS: PredniSONE 5mg tab ORAL SCH (09:07)
[2017-05-26] MEDS: Eliquis 2.5mg tablet ORAL SCH ×2 (09:07→17:29)
[2017-05-26] MEDS: Imdur 30mg tab ORAL SCH (09:08)
[2017-05-26] MEDS: Metoprolol Tartrate 50mg tab ORAL SCH ×2 (09:08→21:26)
[2017-05-26] MEDS: Mycophenolate 250mg cap ORAL SCH ×2 (09:11→17:30)
[2017-05-26] MEDS: Cefepime HCl 1 GM in D5W 55 ML IVPB SCH (10:10)
--- NOTE | 2017-05-26 10:54 | Nephrology Progress Note ---
Assessment/Plan Assessment 1) S/P Kidney TXP 2) CKD III 3) Seizure disorder 4) UTI Plan: Continue current measures Subjective Subjective He is doing ok, creat is down to 1.5, no c/p or sob Objective Objective Last 24 Hour Vital Signs Date Time Temp Pulse Resp B/P Pulse Ox O2 Delivery O2 Flow Rate FiO2 05/26/17 09:08 160/76 05/26/17 09:08 62 160/76 05/26/17 09:07 62 160/76 05/26/17 08:00 61 05/26/17 07:47 97.2 62 20 160/76 96 Room Air 05/26/17 04:06 97.5 61 20 151/80 97 Room Air 05/26/17 03:33 61 05/26/17 01:00 97.0 64 20 152/82 98 Room Air 05/25/17 23:54 62 05/25/17 23:33 61 05/25/17 21:11 61 133/76 05/25/17 20:00 65 23 137/76 98 Room Air 05/25/17 16:00 60 05/25/17 15:30 97.7 58 20 108/57 96 Room Air 05/25/17 12:00 58 05/25/17 11:47 96.4 58 20 122/67 96 Room Air Intake and Output 05/25/17 05/26/17 19:00 07:00 Intake Total 757 ml 400 ml Output Total 400 ml 200 ml Balance 357 ml 200 ml Intake Oral 240 ml IV Total 517 ml 400 ml Output Urine Total 400 ml 200 ml Laboratory Tests 05/26/17 05:00: Sodium Level 140, Potassium Level 3.9, Chloride Level 101, Carbon Dioxide Level 27, Anion Gap 12, Blood Urea Nitrogen 43H, Creatinine 1.5H, Estimat Glomerular Filtration Rate 48.1, Glucose Level 99, Calcium Level 9.3, Total Bilirubin 0.5, Aspartate Amino Transf (AST/SGOT) 22, Alanine Aminotransferase (ALT/SGPT) 10, Alkaline Phosphatase 50, Total Protein 6.9, Albumin 3.9, Globulin 3.0, Albumin/ Globulin Ratio 1.3 Height (Feet): 5 Height (Inches): 5.00 Weight (Pounds): 143 General Appearance: WD/WN, no apparent distress EENT: PERRL/EOMI, TMs normal Neck: non-tender, normal alignment, normal inspection Cardiovascular: no JVD Respiratory/Chest: lungs clear Abdomen: normal bowel sounds, non tender, soft Extremities: non-tender, no calf tenderness 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
--- NOTE | 2017-05-26 11:48 | Urology Progress Note ---
Assessment/Plan Assessment/Plan urinary retention BPH atonic bladder UTI/colonized hematuria renal atrophy abx as ordered boggs indwelling, change soon proscar add flomax or urecholine? consider voiding trial? will most likely fail cysto later Subjective Allergies: Coded Allergies: PENICILLINS (Unverified Allergy, Unknown, 04/17/16) Subjective all noted, feels fair Objective Last 24 Hour Vital Signs Date Time Temp Pulse Resp B/P Pulse Ox O2 Delivery O2 Flow Rate FiO2 05/26/17 11:36 97.0 60 20 139/67 96 Room Air 05/26/17 09:08 160/76 05/26/17 09:08 62 160/76 05/26/17 09:07 62 160/76 05/26/17 08:00 61 05/26/17 07:47 97.2 62 20 160/76 96 Room Air 05/26/17 04:06 97.5 61 20 151/80 97 Room Air 05/26/17 03:33 61 05/26/17 01:00 97.0 64 20 152/82 98 Room Air 05/25/17 23:54 62 05/25/17 23:33 61 05/25/17 21:11 61 133/76 05/25/17 20:00 65 23 137/76 98 Room Air 05/25/17 16:00 60 05/25/17 15:30 97.7 58 20 108/57 96 Room Air 05/25/17 12:00 58 Intake and Output 05/25/17 05/26/17 19:00 07:00 Intake Total 757 ml 400 ml Output Total 400 ml 200 ml Balance 357 ml 200 ml Intake Oral 240 ml IV Total 517 ml 400 ml Output Urine Total 400 ml 200 ml Microbiology Date/Time Source Procedure Growth Status 05/22/17 08:00 Nasal Nares MRSA Culture - Final NO METHICILLIN RESISTANT STAPH AUREUS... Complete 05/23/17 02:36 Urine,Clean Catch Urine Culture - Final Escherichia Coli Complete 05/22/17 08:00 Rectum VRE Culture - Final Enterococcus Faecalis - Vre Complete Current Medications Medications (Trade) Dose Ordered Sig/Benita Route PRN Reason Start Time Stop Time Status Last Admin Dose Admin Acetaminophen/ Hydrocodone Bitart ([place] 5/325) 1 tab Q6H PRN ORAL For Pain 05/22/17 01:30 05/29/17 01:29 Amlodipine Besylate (Norvasc) 5 mg DAILY ORAL 05/22/17 09:00 06/21/17 08:59 05/26/17 09:07 Apixaban (Eliquis) 2.5 mg BID ORAL 05/22/17 09:00 06/21/17 08:59 05/26/17 09:07 Atorvastatin Calcium (Lipitor) 20 mg BEDTIME ORAL 05/22/17 21:00 06/21/17 20:59 05/25/17 21:12 Calcium Carbonate (Tums) 500 mg DAILY ORAL 05/22/17 09:00 06/21/17 08:59 05/26/17 09:07 Cefepime HCl 1 gm/ Dextrose 55 ml @ 110 mls/hr Q24H IVPB 05/23/17 11:00 05/30/17 10:59 05/26/17 10:10 Cyclosporine (SandIMMUNE) 100 mg TWICE A DAY ORAL 05/22/17 09:00 06/21/17 08:59 05/26/17 09:06 Dextrose (Dextrose 50%) STAT PRN IV Hypoglycemia 05/22/17 01:45 06/21/17 01:44 Diphenhydramine HCl (Benadryl) 25 mg Q4H PRN IVP Itching 05/25/17 16:30 06/24/17 16:29 Docusate Sodium (Colace) 100 mg DAILY ORAL 05/22/17 09:00 06/21/17 08:59 05/26/17 09:06 Finasteride (Proscar) 5 mg DAILY ORAL 05/22/17 09:00 06/21/17 08:59 05/26/17 09:06 Hydralazine HCl (Apresoline) 25 mg Q6HR PRN ORAL For High Blood Pressure 05/22/17 04:15 06/21/17 04:14 Insulin Aspart (NovoLOG) BEFORE MEALS AND HS SUBQ 05/22/17 06:30 06/21/17 06:29 05/26/17 06:10 Insulin Detemir (Levemir) 12 units BEDTIME SUBQ 05/22/17 21:00 06/21/17 20:59 05/25/17 21:13 Isosorbide Mononitrate (Imdur) 30 mg DAILY ORAL 05/22/17 09:00 06/21/17 08:59 05/26/17 09:08 Levetiracetam 750 mg 750 mg Q12HR ORAL 05/22/17 12:00 06/21/17 11:59 05/26/17 09:05 Metoprolol Tartrate (Lopressor) 50 mg Q12HR ORAL 05/22/17 09:00 06/21/17 08:59 05/26/17 09:08 Mycophenolate Mofetil (Cellcept) 500 mg BID ORAL 05/22/17 09:00 06/21/17 08:59 05/26/17 09:11 Pantoprazole (Protonix) 40 mg ACBREAKFAST ORAL 05/22/17 06:30 06/21/17 06:29 05/26/17 06:06 Prednisone (predniSONE) 5 mg DAILY ORAL 05/22/17 09:00 06/21/17 08:59 05/26/17 09:07 Sodium Chloride (Sodium Chloride 1000ml bag) 1,000 ml @ 50 mls/hr Q20H IV 05/25/17 09:00 06/24/17 08:59 05/26/17 04:40 Laboratory Tests 05/26/17 05:00: Sodium Level 140, Potassium Level 3.9, Chloride Level 101, Carbon Dioxide Level 27, Anion Gap 12, Blood Urea Nitrogen 43H, Creatinine 1.5H, Estimat Glomerular Filtration Rate 48.1, Glucose Level 99, Calcium Level 9.3, Total Bilirubin 0.5, Aspartate Amino Transf (AST/SGOT) 22, Alanine Aminotransferase (ALT/SGPT) 10, Alkaline Phosphatase 50, Total Protein 6.9, Albumin 3.9, Globulin 3.0, Albumin/ Globulin Ratio 1.3 Height (Feet): 5 Height (Inches): 5.00 Weight (Pounds): 143 Objective boggs indwelling, harjinder urine last renal u/s, jun noted JAMISON CORDON May 26, 2017 11:48
--- NOTE | 2017-05-26 12:48 | General Progress Note ---
Assessment/Plan Problem List: (1) UTI (urinary tract infection) ICD Codes: N39.0 - Urinary tract infection, site not specified SNOMED: 42729683 (2) Altered mental status ICD Codes: R41.82 - Altered mental status, unspecified SNOMED: 966374374 (3) Confusional state ICD Codes: F44.89 - Other dissociative and conversion disorders SNOMED: 221094494 (4) chronic seizure disorder, eczacerbation (5) DM renal manif type II ICD Codes: E11.29 - DM renal manif type II SNOMED: 02835559 (6) Diabetes mellitus out of control ICD Codes: E11.65 - Diabetes mellitus out of control SNOMED: 362111304 (7) Hypertension ICD Codes: I10 - Essential (primary) hypertension SNOMED: 53710661 (8) Renal insufficiency ICD Codes: N28.9 - Disorder of kidney and ureter, unspecified SNOMED: 647312581 (9) CHF (congestive heart failure) ICD Codes: I50.9 - Heart failure, unspecified SNOMED: 46327380 (10) Sepsis ICD Codes: A41.9 - Sepsis, unspecified organism SNOMED: 91553834 Status: stable, progressing Assessment/Plan sz rx per neuro abx anf ivf hydrate follow up cultures monitor mental status monitor for seizures bp rx monitor bs transplant meds per renal pt/ot Subjective ROS Limited/Unobtainable: No Constitutional: Reports: malaise, weakness HEENT: Reports: no symptoms Cardiovascular: Reports: no symptoms Respiratory: Reports: no symptoms Gastrointestinal/Abdominal: Reports: no symptoms Genitourinary: Reports: no symptoms Neurologic/Psychiatric: Reports: pre-existing deficit, seizure Endocrine: Reports: no symptoms Hematologic/Lymphatic: Reports: anemia Allergies: Coded Allergies: PENICILLINS (Unverified Allergy, Unknown, 04/17/16) All Systems: reviewed and negative except above Subjective more alert. still confused. denies cp/sob. no headaches. per family pt still not at baseline. cr and bun trending down with ivf Objective Last 24 Hour Vital Signs Date Time Temp Pulse Resp B/P Pulse Ox O2 Delivery O2 Flow Rate FiO2 05/26/17 11:36 97.0 60 20 139/67 96 Room Air 05/26/17 09:08 160/76 05/26/17 09:08 62 160/76 05/26/17 09:07 62 160/76 05/26/17 08:00 61 05/26/17 07:47 97.2 62 20 160/76 96 Room Air 05/26/17 04:06 97.5 61 20 151/80 97 Room Air 05/26/17 03:33 61 05/26/17 01:00 97.0 64 20 152/82 98 Room Air 05/25/17 23:54 62 05/25/17 23:33 61 05/25/17 21:11 61 133/76 05/25/17 20:00 65 23 137/76 98 Room Air 05/25/17 16:00 60 05/25/17 15:30 97.7 58 20 108/57 96 Room Air Intake and Output 05/25/17 05/26/17 19:00 07:00 Intake Total 757 ml 400 ml Output Total 400 ml 200 ml Balance 357 ml 200 ml Intake Oral 240 ml IV Total 517 ml 400 ml Output Urine Total 400 ml 200 ml Laboratory Tests 05/26/17 05:00: Sodium Level 140, Potassium Level 3.9, Chloride Level 101, Carbon Dioxide Level 27, Anion Gap 12, Blood Urea Nitrogen 43H, Creatinine 1.5H, Estimat Glomerular Filtration Rate 48.1, Glucose Level 99, Calcium Level 9.3, Total Bilirubin 0.5, Aspartate Amino Transf (AST/SGOT) 22, Alanine Aminotransferase (ALT/SGPT) 10, Alkaline Phosphatase 50, Total Protein 6.9, Albumin 3.9, Globulin 3.0, Albumin/ Globulin Ratio 1.3 Height (Feet): 5 Height (Inches): 5.00 Weight (Pounds): 143 Objective General Appearance: WD/WN, alert Neck: supple Cardiovascular: normal rate Respiratory/Chest: chest wall non-tender, lungs clear, normal breath sounds, no respiratory distress Abdomen: normal bowel sounds, non tender, soft, no organomegaly Edema: no edema noted Arm (L), no edema noted Arm (R), no edema noted Leg (L), no edema noted Leg (R), no edema noted Pedal (L), no edema noted Pedal (R), no edema noted Generalized. 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
[2017-05-26] MEDS ORDERED: Norco 5mg/325mg tab ORAL PRN (14:00)
[2017-05-26] MEDS ORDERED: DiphenhydrAMINE 50mg/ml Inj IVP PRN (16:00)
[2017-05-26] MEDS ORDERED: HydrALAZINE 25mg tab ORAL PRN (18:00)
[2017-05-26] MEDS ORDERED: Atorvastatin 20mg tab ORAL SCH (21:00)
[2017-05-26] MEDS ORDERED: Levemir Flexpen SUBQ SCH (21:00)
[2017-05-27] VITALS: BP 139/73
[2017-05-27 04:00] VITALS: BP 136/70
[2017-05-27] MEDS: NovoLOG Insulin Flexpen SUBQ SCH ×3 (05:58→16:33)
[2017-05-27 08:15] VITALS: BP 155/74
[2017-05-27] MEDS ORDERED: Docusate 100mg cap ORAL SCH (09:00)
[2017-05-27] MEDS ORDERED: Tums 500mg ORAL SCH (09:00)
[2017-05-27] MEDS ORDERED: PredniSONE 5mg tab ORAL SCH (09:00)
[2017-05-27] MEDS ORDERED: Imdur 30mg tab ORAL SCH (09:00)
[2017-05-27] MEDS: cycloSPORINE 100mg cap ORAL SCH ×2 (09:16→18:39)
[2017-05-27] MEDS: Metoprolol Tartrate 50mg tab ORAL SCH (09:16)
[2017-05-27] MEDS: Mycophenolate 250mg cap ORAL SCH ×2 (09:16→18:39)
[2017-05-27] MEDS: Eliquis 2.5mg tablet ORAL SCH ×2 (09:17→18:38)
--- NOTE | 2017-05-27 10:13 | Urology Progress Note ---
Assessment/Plan Assessment/Plan urinary retention BPH atonic bladder UTI/colonized hematuria renal atrophy abx as ordered boggs indwelling, change today proscar add flomax or urecholine? consider voiding trial? will most likely fail cysto later, can be done as outpt recheck urine cx later Subjective Allergies: Coded Allergies: PENICILLINS (Unverified Allergy, Unknown, 04/17/16) Subjective all noted, feels fair Objective Last 24 Hour Vital Signs Date Time Temp Pulse Resp B/P Pulse Ox O2 Delivery O2 Flow Rate FiO2 05/27/17 09:16 59 155/74 05/27/17 09:16 59 155/74 05/27/17 09:15 155/74 05/27/17 08:15 96.8 59 13 155/74 97 Room Air 05/27/17 04:00 97.5 67 20 136/70 97 Room Air 05/27/17 00:00 97.2 62 20 139/73 96 Room Air 05/26/17 21:26 65 133/69 05/26/17 20:00 97.5 65 20 133/69 97 Room Air 05/26/17 16:00 97.7 61 16 138/69 97 Room Air 05/26/17 13:53 97.3 56 20 139/70 97 Room Air 05/26/17 12:00 59 05/26/17 11:36 97.0 60 20 139/67 96 Room Air Intake and Output 05/26/17 05/27/17 19:00 07:00 Intake Total 225 ml 860 ml Output Total 750 ml 1250 ml Balance -525 ml -390 ml Intake Oral 120 ml 360 ml IV Total 105 ml 500 ml Output Urine Total 750 ml 1250 ml Microbiology Date/Time Source Procedure Growth Status 05/22/17 08:00 Nasal Nares MRSA Culture - Final NO METHICILLIN RESISTANT STAPH AUREUS... Complete 05/23/17 02:36 Urine,Clean Catch Urine Culture - Final Escherichia Coli Complete 05/22/17 08:00 Rectum VRE Culture - Final Enterococcus Faecalis - Vre Complete Current Medications Medications (Trade) Dose Ordered Sig/Benita Route PRN Reason Start Time Stop Time Status Last Admin Dose Admin Acetaminophen/ Hydrocodone Bitart (Beaver 5/325) 1 tab Q6H PRN ORAL For Pain 05/26/17 14:00 06/02/17 13:59 Amlodipine Besylate (Norvasc) 5 mg DAILY ORAL 05/27/17 09:00 06/26/17 08:59 05/27/17 09:16 Apixaban (Eliquis) 2.5 mg BID ORAL 05/26/17 18:00 06/25/17 17:59 05/27/17 09:17 Atorvastatin Calcium (Lipitor) 20 mg BEDTIME ORAL 05/26/17 21:00 06/25/17 20:59 05/26/17 21:26 Calcium Carbonate (Tums) 500 mg DAILY ORAL 05/27/17 09:00 06/26/17 08:59 05/27/17 09:15 Cefepime HCl 1 gm/ Dextrose 55 ml @ 110 mls/hr Q24H IVPB 05/27/17 11:00 06/03/17 10:59 Cyclosporine (SandIMMUNE) 100 mg TWICE A DAY ORAL 05/26/17 18:00 06/25/17 17:59 05/27/17 09:16 Dextrose (Dextrose 50%) STAT PRN IV Hypoglycemia 05/26/17 14:00 06/25/17 13:59 Diphenhydramine HCl (Benadryl) 25 mg Q4H PRN IVP Itching 05/26/17 16:00 06/25/17 15:59 Docusate Sodium (Colace) 100 mg DAILY ORAL 05/27/17 09:00 06/26/17 08:59 05/27/17 09:16 Finasteride (Proscar) 5 mg DAILY ORAL 05/27/17 09:00 06/26/17 08:59 05/27/17 09:15 Hydralazine HCl (Apresoline) 25 mg Q6HR PRN ORAL SBP>160 05/26/17 18:00 06/25/17 17:59 Insulin Aspart (NovoLOG) BEFORE MEALS AND HS SUBQ 05/26/17 16:30 06/25/17 16:29 05/27/17 05:58 Insulin Detemir (Levemir) 12 units BEDTIME SUBQ 05/26/17 21:00 06/25/17 20:59 05/26/17 21:39 Isosorbide Mononitrate (Imdur) 30 mg DAILY ORAL 05/27/17 09:00 06/26/17 08:59 05/27/17 09:15 Levetiracetam (Keppra) 750 mg Q12HR ORAL 05/26/17 21:00 06/25/17 20:59 05/27/17 09:15 Metoprolol Tartrate (Lopressor) 50 mg Q12HR ORAL 05/26/17 21:00 06/25/17 20:59 05/27/17 09:16 Mycophenolate Mofetil (Cellcept) 500 mg BID ORAL 05/26/17 18:00 06/25/17 17:59 05/27/17 09:16 Pantoprazole (Protonix) 40 mg ACBREAKFAST ORAL 05/27/17 06:30 06/26/17 06:29 05/27/17 05:55 Prednisone (predniSONE) 5 mg DAILY ORAL 05/27/17 09:00 06/26/17 08:59 05/27/17 09:17 Sodium Chloride (Sodium Chloride 1000ml bag) 1,000 ml @ 50 mls/hr Q20H IV 05/26/17 14:00 06/25/17 13:59 05/27/17 02:54 Height (Feet): 5 Height (Inches): 5.00 Weight (Pounds): 143 Objective boggs indwelling, harjinder urine last renal u/s, jun noted JAMISON CORDON May 27, 2017 10:13
[2017-05-27] MEDS ORDERED: Cefepime HCl 1 GM in D5W 55 ML IVPB SCH (11:00)
[2017-05-27] MEDS ORDERED: CEPHALEXIN500 MG ORAL (11:18)
[2017-05-27] MEDS ORDERED: KEPPRA500 MG ORAL (11:18)
[2017-05-27 12:13] VITALS: BP 146/75
--- NOTE | 2017-05-27 13:15 | Nephrology Progress Note ---
Assessment/Plan Assessment 1) S/P Kidney TXP 2) CKD III 3) Seizure disorder 4) UTI Plan: Continue current measures Probably can be discharged Subjective Subjective He is doing ok, no c/p or sob Objective Objective Last 24 Hour Vital Signs Date Time Temp Pulse Resp B/P Pulse Ox O2 Delivery O2 Flow Rate FiO2 05/27/17 12:13 97.0 63 15 146/75 97 Room Air 05/27/17 09:16 59 155/74 05/27/17 09:16 59 155/74 05/27/17 09:15 155/74 05/27/17 08:15 96.8 59 13 155/74 97 Room Air 05/27/17 04:00 97.5 67 20 136/70 97 Room Air 05/27/17 00:00 97.2 62 20 139/73 96 Room Air 05/26/17 21:26 65 133/69 05/26/17 20:00 97.5 65 20 133/69 97 Room Air 05/26/17 16:00 97.7 61 16 138/69 97 Room Air 05/26/17 13:53 97.3 56 20 139/70 97 Room Air Intake and Output 05/26/17 05/27/17 19:00 07:00 Intake Total 225 ml 910 ml Output Total 750 ml 1250 ml Balance -525 ml -340 ml Intake Oral 120 ml 360 ml IV Total 105 ml 550 ml Output Urine Total 750 ml 1250 ml Height (Feet): 5 Height (Inches): 5.00 Weight (Pounds): 143 General Appearance: WD/WN, no apparent distress, alert EENT: PERRL/EOMI Neck: non-tender, normal alignment Cardiovascular: normal rate, regular rhythm, no JVD Respiratory/Chest: chest wall non-tender, lungs clear Abdomen: normal bowel sounds, non tender Extremities: normal range of motion, other - S/P R BKA 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
[2017-05-27 16:00] VITALS: BP 140/77
--- NOTE | 2017-05-28 06:15 | Discharge Summary ---
DATE OF ADMISSION: 05/21/2017 DATE OF DISCHARGE: 05/27/2017 ADMISSION DIAGNOSES: 1. Status epilepticus. 2. Seizure disorder. 3. Sepsis. 4. Urinary tract infection. 5. Kidney transplant. 6. Toxic metabolic encephalopathy. 7. Acute renal failure. 8. History of deep venous thrombosis. 9. History of diabetes. 10. Hypertension. DISCHARGE DIAGNOSES: 1. Status epilepticus. 2. Seizure disorder. 3. Sepsis. 4. Urinary tract infection. 5. Kidney transplant. 6. Toxic metabolic encephalopathy. 7. Acute renal failure. 8. History of deep venous thrombosis. 9. History of diabetes. 10. Hypertension. HOSPITAL COURSE: The patient is a pleasant 56-year-old male with complaints of seizures. The patient was also diagnosed with urinary tract infection. He had an EEG, which showed no active seizures. Neuro consultation was obtained. Seizure medications were adjusted. The patient was also diagnosed with a urinary tract infection. He was treated initially with IV antibiotics. On discharge, the patient was doing well. He will be discharged home and complete an additional week of antibiotic therapy. Please see discharge medication list for discharge medications. DIET: Diabetic. ACTIVITY: Ad-aimee. FOLLOWUP: The patient will follow up in one to two weeks in the office. Osmani Caal M.D. DR: TIA JOB#: [id number] CC:
== END 2017-05-27 18:57 | disposition home health service (06) | DRG 100 ==
LOC: 2E 23:00 → 4E 05-26 13:10
DX: G40.901 Epilepsy, unspecified, not intractable, with status epilepticus (principal); G92 Toxic encephalopathy; N17.9 Acute kidney failure, unspecified; I50.32 Chronic diastolic (congestive) heart failure; N18.3 Chronic kidney disease, stage 3 (moderate); I13.0 Hypertensive heart and chronic kidney disease with heart failure and stage 1 through stage 4 chronic kidney disease, or unspecified chronic kidney disease; E11.22 Type 2 diabetes mellitus with diabetic chronic kidney disease; Z94.0 Kidney transplant status; N39.0 Urinary tract infection, site not specified; F01.50 Vascular dementia, unspecified severity, without behavioral disturbance, psychotic disturbance, mood disturbance, and anxiety; Z79.4 Long term (current) use of insulin; J44.9 Chronic obstructive pulmonary disease, unspecified; Z89.511 Acquired absence of right leg below knee; I73.9 Peripheral vascular disease, unspecified; R33.9 Retention of urine, unspecified; Z88.0 Allergy status to penicillin; Z86.718 Personal history of other venous thrombosis and embolism; I69.319 Unspecified symptoms and signs involving cognitive functions following cerebral infarction; I48.0 Paroxysmal atrial fibrillation; N31.9 Neuromuscular dysfunction of bladder, unspecified; R41.0 Disorientation, unspecified; Z89.422 Acquired absence of other left toe(s)
CPT/HCPCS: 36415; 80048; 80053; 80299; 81001; 82962; 83880; 84443; 85025; 87081; 87086; 87181; 95819; J1815; S5561

== ENCOUNTER 2017-06-09 14:29 | Inpatient (IN) | payer MEDICARE ==
[~2017-06-09] VITALS: Ht 167.6 cm; Wt 64.4 kg
[~2017-06-09 14:29] MED LIST changes: +CEPHALEXIN500 MG ORAL; +ELIQUIS2.5 MG PO; +KEPPRA500 MG ORAL
[2017-06-09 20:01] VITALS: BP 123/65
[2017-06-09] MEDS ORDERED: NITROFURANTOIN100 MG PO (20:58)
[2017-06-09] MEDS ORDERED: LEVETIRACETAM500 MG ORAL (20:58)
[2017-06-09] MEDS ORDERED: ATORVASTATIN CA10 MG ORAL (20:58)
[2017-06-09] MEDS ORDERED: KLOR-CON M2020 MEQ ORAL (20:58)
[2017-06-09] MEDS ORDERED: LACTULOSE20 GM/301 ORAL (20:58)
[2017-06-09] MEDS ORDERED: LEXAPRO10 MG ORAL (20:58)
[2017-06-09] MEDS ORDERED: BENADRYL25 MG ORAL (20:58)
[2017-06-09] MEDS ORDERED: NORCO 5-325 TA1 EAC1 ORAL (21:03)
[2017-06-09] MEDS ORDERED: NIFEDIPINE ER30 M2 ORAL (21:03)
[2017-06-09] MEDS ORDERED: Miralax 17gm pkt ORAL PRN (21:15)
[2017-06-09] MEDS ORDERED: Norco 5mg/325mg tab ORAL PRN (21:15)
[2017-06-09] MEDS ORDERED: Lactulose 20gm/30ml UDC ORAL PRN ×2 (21:15→22:00)
[2017-06-09] MEDS ORDERED: Simethicone 80mg tab ORAL PRN (21:15)
[2017-06-09 23:56] VITALS: BP 135/74
[2017-06-10 03:53] VITALS: BP 130/70
[2017-06-10] MEDS: NovoLOG Insulin Flexpen SUBQ SCH ×4 (06:17→21:43)
[2017-06-10 08:00] VITALS: BP 133/70
[2017-06-10 08:22] LABS: TROPONIN I < 0.30 ng/mL (<=0.30)
[2017-06-10 08:41] LABS: ALBUMIN/GLOBULIN RATIO 1.6 (1.0-2.7); CALCIUM 9.2 mg/dL (8.6-10.2); CREATININE 1.7 mg/dL (0.7-1.2); GLOMERULAR FILTRATION RATE 41.6 mL/min (>60); MAGNESIUM 1.9 mg/dL (1.7-2.5); TOTAL PROTEIN 6.3 g/dL (6.6-8.7)
[2017-06-10] MEDS: Lyrica 50mg cap ORAL SCH ×2 (09:00→18:09)
[2017-06-10] MEDS: PredniSONE 5mg tab ORAL SCH (09:00)
[2017-06-10] MEDS: Levemir Flexpen SUBQ SCH ×2 (09:57→18:09)
[2017-06-10] MEDS: Eliquis 2.5mg tablet ORAL SCH ×2 (10:00→18:08)
[2017-06-10] MEDS: Metoprolol 25mg tab ORAL SCH (10:01)
[2017-06-10] MEDS: cycloSPORINE 25mg cap ORAL SCH ×2 (10:02→21:35)
[2017-06-10] MEDS: Docusate 100mg cap ORAL SCH ×2 (10:02→18:08)
[2017-06-10] MEDS: Aspirin EC 81mg tab ORAL SCH (10:02)
[2017-06-10] MEDS: Imdur 30mg tab ORAL SCH (10:03)
[2017-06-10] MEDS: Mycophenolate 250mg cap ORAL SCH ×2 (10:04→21:36)
[2017-06-10 12:00] VITALS: BP 132/73
--- NOTE | 2017-06-10 15:59 | Diagnostic Imaging Report ---
Indication: COUGH Technique: One view of the chest Comparison: 04/23/2017 Findings: Mild interstitial prominence is, much less that seen on the prior study. Heart size upper limits of normal. Pleural spaces are clear. Impression: Mild interstitial prominence, acuity indeterminate. Correlate with clinical findings No evidence of acute airspace disease
[2017-06-10 16:00] VITALS: BP 141/79
--- NOTE | 2017-06-10 17:30 | History and Physical Report ---
DATE OF ADMISSION: 06/09/2017 CHIEF COMPLAINT: Congestive heart failure exacerbation. HISTORY OF PRESENT ILLNESS: The patient is a 56-year-old male with a history of kidney transplant, hypertension, diabetes, peripheral artery disease, and DVT status post IVC filter. He has a history of recurrent urine tract infections, pneumonia, as well as urinary retention. He was brought in to an outside hospital with complaints of acute onset of shortness of breath in the middle of the night. The patient denies any chest pain. He denies any medication or dietary noncompliance. But on evaluation at the outside hospital, he was admitted for congestive heart failure exacerbation. He was diuresed and then transferred here for continued care. PAST MEDICAL HISTORY: As above. PAST SURGICAL HISTORY: Includes a BKA and history of an AV fistula. CURRENT MEDICATIONS: Reconciled and reviewed. ALLERGIES: Include penicillin. SOCIAL HISTORY: There is no known history of tobacco, ethanol, or drugs. The patient was a prior smoker. FAMILY HISTORY: Noncontributory. REVIEW OF SYSTEMS: General: No fever or chills. HEENT: No headaches or visual changes. Cardiopulmonary: No chest pain. Positive shortness of breath. No cough. Gastrointestinal: No nausea or vomiting. Genitourinary: No urgency or frequency. Musculoskeletal: No joint pain or swelling. Neurologic: Positive history of seizures. PHYSICAL EXAMINATION: VITAL SIGNS: Temperature 97.2 degrees, pulse 68, respirations 20, and blood pressure 132/73. GENERAL: The patient is a well-developed male, in no apparent distress. He is awake and alert. HEENT: His pupils are equal, round, and reactive to light. Sclerae anicteric. Oropharynx is clear. NECK: Supple. HEART: Regular rate and rhythm. LUNGS: Bibasilar rales. ABDOMEN: Soft, nontender, and nondistended. EXTREMITIES: Without clubbing, cyanosis, or edema. LABORATORY DATA: Sodium is 137, potassium is 4, BUN 63, creatinine 1.7, and glucose is 277. Chest x-ray at the outside hospital showed pulmonary edema. ASSESSMENT: This is an elderly male with multiple medical problems, admitted with congestive heart failure exacerbation and pulmonary edema. 1. Congestive heart failure exacerbation/pulmonary edema. 2. Chronic kidney disease. 3. Hypertension. 4. Diabetes. 5. History of peripheral artery disease status post below-knee amputation. 6. History of seizure disorder. 7. History of deep venous thrombosis. PLAN: 1. Cautious diuresis. 2. Close monitoring of renal function. 3. Follow up chest x-ray. 4. Cardiology and renal consultations to be obtained. 5. We will continue current seizure regimen. 6. We will continue current diabetic regimen with close monitoring of Accu-Cheks. 7. PT and OT evaluations also to be obtained. Osmani Caal M.D. DR: MOJGAN JOB#: [id number] CC:
[2017-06-10 20:15] VITALS: BP 123/69
--- NOTE | 2017-06-10 21:00 | Consultation ---
DATE OF CONSULTATION: 06/10/2017 CONSULTING PHYSICIAN: Moise Blanc M.D. REFERRING PHYSICIAN: Osmani Caal M.D. REASON FOR CONSULTATION: I am asked to evaluate this patient, who is admitted with congestive heart failure and history of kidney transplant in 1997. HISTORY OF PRESENT ILLNESS: The patient is a long-term kidney transplant. He has had recurrent hospitalizations for congestive heart failure and pulmonary infections. He has a chronic indwelling Gutierrez catheter. He has had neurogenic bladder and urinary retention on multiple occasions. The patient presents now with increasing shortness of breath. No fever or chills. The patient's prior history also includes prior CVA, seizures, DVT, and peripheral vascular disease with right below-knee amputation. PAST SURGICAL HISTORY: Includes dialysis access, renal transplant, below-knee amputation on the right, and amputation of toes of the left foot. MEDICATIONS: Reconciled on the computer. ALLERGIES: Penicillin. HABITS: He is a former smoker and occasional alcohol drinker. Quit many years ago. SYSTEM REVIEW: HEENT: The patient says that his vision and hearing is good. ENDOCRINE: Long-standing diabetes. No thyroid disease. PULMONARY: History of chronic obstructive pulmonary disease and recurrent pulmonary infections. CARDIAC: History of diastolic congestive heart failure. He has had prior elevated troponins and detailed cardiac evaluation. GASTROINTESTINAL: He has had prior gastritis. No abdominal pain, nausea, or vomiting at this time. GENITOURINARY: Urinary retention as above. NEUROLOGIC: History of seizures and CVA in the past. PHYSICAL EXAMINATION: GENERAL: The patient is alert, chronically ill-appearing man, lying in bed, currently in no acute distress. VITAL SIGNS: Temperature 97.2 degrees, pulse 68, respirations 20, blood pressure 132/73, and pulse oximetry is 98%. HEENT: There is bilateral periorbital edema. Sclerae are nonicteric. Ocular motion intact in all directions. Oral mucosa moist. NECK: No adenopathy. LUNGS: Few rhonchi. No distress. HEART: Regular rhythm. I hear no murmur. ABDOMEN: Soft. No organomegaly. Renal transplant. Right lower quadrant is nontender. EXTREMITIES: No edema, cyanosis, or clubbing. There is a right below-knee amputation and amputation of toes of the left foot. NEUROLOGIC: He is alert and responsive. PERTINENT LABS: Sodium 137, potassium 4.0, chloride 95, CO2 28, BUN 63, creatinine 1.7, and glucose 277. Albumin 3.9. Troponin less than 0.30. IMPRESSION: 1. Congestive heart failure, acute upon chronic with diastolic dysfunction. 2. History of kidney transplant with likely chronic transplant nephropathy and chronic kidney disease stage 3 to 4. 3. Chronic obstructive pulmonary disease. 4. Peripheral vascular disease. 5. Insulin-dependent diabetes. 6. History of seizure and stroke. PLAN: The patient's medications will be reviewed. We will continue on his current cyclosporine and mycophenolate and prednisone. We will monitor his laboratories and adjust medicines as needed and follow with you. Moise Blanc M.D. DR: LETICIA JOB#: [id number] CC:
[2017-06-10] MEDS: Tamsulosin 0.4mg cap ORAL SCH (21:37)
[2017-06-11 00:10] VITALS: BP 130/74
[2017-06-11 04:10] VITALS: BP 141/45
--- NOTE | 2017-06-11 04:45 | Progress Note ---
DATE: 06/10/2017 CARDIOLOGY PROGRESS NOTE SUBJECTIVE: The patient was seen last evening and again this afternoon. He is less short of breath. He is still congested. He denies chest pain. Monitored rhythm sinus with rare atrial ectopics. No atrial fibrillation. PAST MEDICAL HISTORY: History of DVT with IVC filter. OBJECTIVE: VITAL SIGNS: Afebrile, blood pressure 141/79, pulse 68, and respiratory rate 20. HEENT: Periorbital edema. Conjunctivae pink. Sclerae are anicteric. Oropharynx clear. NECK: Supple. No jugular venous distention. LUNGS: With few rhonchi. CARDIAC: Regular rhythm and rate. Normal S1 and S2 with a fourth heart sound. ABDOMEN: Soft and nontender with renal transplant site noted. EXTREMITIES: Without edema. Right BKA noted and toe amputations on the left. NEUROLOGIC: Nonfocal. LABORATORY DATA: Reviewed. Troponin negative. IMPRESSION: 1. Acute on chronic diastolic congestive heart failure. 2. Ischemic and hypertensive cardiomyopathy. 3. Renal transplant with chronic kidney disease, stage 3. 4. Chronic obstructive pulmonary disease, no active bronchospasm. 5. Insulin-requiring diabetes mellitus. 6. Peripheral artery disease with lower extremity amputation. 7. Cerebrovascular disease with prior cerebrovascular accident and seizure disorder. 8. Paroxysmal atrial fibrillation. PLAN: 1. Titrate diuretic regimen. 2. Optimize antihypertensive and anti-failure drugs. 3. Anti-platelet therapy. 4. Trend natriuretic peptide assay. 5. Monitor cardiorenal parameters. 6. Apixaban for cardioembolic prophylaxis. Armando Lerma M.D. DR: Nida JOB#: [id number] CC:
[2017-06-11] MEDS: NovoLOG Insulin Flexpen SUBQ SCH ×4 (06:27→22:50)
[2017-06-11 08:31] VITALS: BP 155/80
--- NOTE | 2017-06-11 08:33 | General Progress Note ---
Assessment/Plan Problem List: (1) Dyspnea ICD Codes: R06.00 - Dyspnea SNOMED: 837218899 (2) Respiratory distress ICD Codes: R06.00 - Dyspnea, unspecified SNOMED: 885527386 (3) Seizure ICD Codes: R56.9 - Unspecified convulsions SNOMED: 29292929 (4) CHF (congestive heart failure) ICD Codes: I50.9 - Heart failure, unspecified SNOMED: 33212903 (5) Hypertension ICD Codes: I10 - Essential (primary) hypertension SNOMED: 93888872 (6) Diabetes mellitus out of control ICD Codes: E11.65 - Diabetes mellitus out of control SNOMED: 431636971 Status: stable, progressing Assessment/Plan cont diuresis with iv lasix follow up labs monitor bs sz rx pt/ot dc planning tomorrow if stable Subjective ROS Limited/Unobtainable: No Constitutional: Reports: malaise, weakness HEENT: Reports: no symptoms Cardiovascular: Reports: edema Respiratory: Reports: no symptoms Gastrointestinal/Abdominal: Reports: no symptoms Genitourinary: Reports: other - boggs Neurologic/Psychiatric: Reports: seizure Endocrine: Reports: no symptoms Hematologic/Lymphatic: Reports: anemia Allergies: Coded Allergies: PENICILLINS (Unverified Allergy, Unknown, 04/17/16) All Systems: reviewed and negative except above Subjective no events. less sob. alert. no chest pain . Objective Last 24 Hour Vital Signs Date Time Temp Pulse Resp B/P Pulse Ox O2 Delivery O2 Flow Rate FiO2 06/11/17 04:10 98.0 63 20 141/45 97 Room Air 06/11/17 04:00 62 06/11/17 02:43 64 06/11/17 00:10 97.5 67 20 130/74 98 Room Air 06/10/17 20:15 98.0 65 20 123/69 99 Room Air 06/10/17 20:00 64 06/10/17 16:00 97.2 68 20 141/79 98 Nasal Cannula 2.0 06/10/17 16:00 64 06/10/17 12:00 70 06/10/17 12:00 97.2 68 20 132/73 98 Nasal Cannula 2.0 06/10/17 10:03 133/70 06/10/17 10:01 68 133/70 06/10/17 10:01 68 133/70 Intake and Output 06/10/17 06/11/17 19:00 07:00 Output Total 1700 ml 850 ml Balance -1700 ml -850 ml Output Urine Total 1700 ml 850 ml Height (Feet): 5 Height (Inches): 6.00 Weight (Pounds): 142 General Appearance: WD/WN, alert Neck: supple Cardiovascular: normal rate, regular rhythm Respiratory/Chest: chest wall non-tender, lungs clear, normal breath sounds, no respiratory distress, no accessory muscle use Abdomen: normal bowel sounds, non tender, soft, no organomegaly Edema: no edema noted Arm (L), no edema noted Arm (R), no edema noted Leg (L), no edema noted Leg (R), no edema noted Pedal (L), no edema noted Pedal (R), no edema noted 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
[2017-06-11] MEDS: Mycophenolate 250mg cap ORAL SCH ×2 (08:44→21:00)
[2017-06-11] MEDS: Docusate 100mg cap ORAL SCH ×2 (08:44→17:03)
[2017-06-11] MEDS: Imdur 30mg tab ORAL SCH (08:44)
[2017-06-11] MEDS: Lyrica 50mg cap ORAL SCH ×2 (08:45→17:03)
[2017-06-11] MEDS: cycloSPORINE 25mg cap ORAL SCH ×2 (08:45→21:43)
[2017-06-11] MEDS: Eliquis 2.5mg tablet ORAL SCH ×2 (08:45→17:03)
[2017-06-11] MEDS: Aspirin EC 81mg tab ORAL SCH (08:45)
[2017-06-11] MEDS: Metoprolol 25mg tab ORAL SCH (08:46)
[2017-06-11] MEDS: PredniSONE 5mg tab ORAL SCH (08:47)
[2017-06-11 09:00] LABS: MEAN CORPUSCULAR HEMOGLOBIN 30.4 PG (27.0-31.0); MEAN CORPUSCULAR HGB CONC 33.3 G/DL (32.0-36.0); MEAN CORPUSCULAR VOLUME 91 FL (80-99); MEAN PLATELET VOLUME 9.8 FL (6.5-10.1); PLATELET COUNT 135 K/UL (150-450); RED BLOOD COUNT 3.66 M/UL (4.70-6.10); RED CELL DISTRIBUTION WIDTH 14.7 % (11.6-14.8); WHITE BLOOD COUNT 3.3 K/UL (4.8-10.8)
[2017-06-11] MEDS: Levemir Flexpen SUBQ SCH ×2 (09:04→17:05)
[2017-06-11 09:21] LABS: ALBUMIN/GLOBULIN RATIO 1.2 (1.0-2.7); CALCIUM 9.6 mg/dL (8.6-10.2); CREATININE 1.6 mg/dL (0.7-1.2); GLOMERULAR FILTRATION RATE 44.6 mL/min (>60); POTASSIUM 4.7 mEQ/L (3.4-4.9)
[2017-06-11 10:24] LABS: BAND NEUTROPHILS % (MANUAL) 0 % (0-8); BASOPHILS % (MANUAL) 0 % (0-2); EOSINOPHILS % (MANUAL) 0 % (0-3); LYMPHOCYTES % (MANUAL) 24 % (20-45); NEUTROPHILS % (MANUAL) 74 % (45-75); TOTAL CELLS COUNTED 100
[2017-06-11 10:25] LABS: PLATELET CLUMPS OCCASIONAL
[2017-06-11 10:26] LABS: MICROCYTES 1+
[2017-06-11 10:27] LABS: PLATELET ESTIMATE ADEQUATE
[2017-06-11 12:00] VITALS: BP 121/70
[2017-06-11 16:34] VITALS: BP 126/71
[2017-06-11 20:10] VITALS: BP 130/76
--- NOTE | 2017-06-11 20:43 | Nephrology Progress Note ---
Assessment/Plan Problem List: (1) Status post kidney transplant (2) CKD stage 3 secondary to diabetes (3) CHF exacerbation (4) Seizure (5) Hypertension Plan monitor renal function while on iv lasix, cyclosporin 100 bid adjusted Subjective Constitutional: Reports: weakness HEENT: Reports: no symptoms Genitourinary: Reports: incontinence Neurologic/Psychiatric: Reports: pre-existing deficit Objective Objective Last 24 Hour Vital Signs Date Time Temp Pulse Resp B/P Pulse Ox O2 Delivery O2 Flow Rate FiO2 06/11/17 20:10 97.9 70 20 130/76 98 Nasal Cannula 2.0 06/11/17 16:34 97.3 66 18 126/71 97 Nasal Cannula 2.0 06/11/17 16:00 66 06/11/17 12:00 97.0 71 20 121/70 100 Nasal Cannula 2.0 06/11/17 12:00 67 06/11/17 08:46 64 155/80 06/11/17 08:46 64 155/80 06/11/17 08:44 155/80 06/11/17 08:31 97.5 64 20 155/80 98 Nasal Cannula 2.0 06/11/17 08:00 64 06/11/17 04:10 98.0 63 20 141/45 97 Room Air 06/11/17 04:00 62 06/11/17 02:43 64 06/11/17 00:10 97.5 67 20 130/74 98 Room Air Intake and Output 06/10/17 06/11/17 19:00 07:00 Output Total 1700 ml 850 ml Balance -1700 ml -850 ml Output Urine Total 1700 ml 850 ml Laboratory Tests 06/11/17 08:25: White Blood Count 3.3L, Red Blood Count 3.66L, Hemoglobin 11.2L, Hematocrit 33.5L, Mean Corpuscular Volume 91, Mean Corpuscular Hemoglobin 30.4, Mean Corpuscular Hemoglobin Concent 33.3, Red Cell Distribution Width 14.7, Platelet Count 135L, Mean Platelet Volume 9.8, Neutrophils (%) (Auto) , Lymphocytes (%) ( Auto) , Monocytes (%) (Auto) , Eosinophils (%) (Auto) , Basophils (%) (Auto) , Differential Total Cells Counted 100, Neutrophils % (Manual) 74, Lymphocytes % ( Manual) 24, Monocytes % (Manual) 2, Eosinophils % (Manual) 0, Basophils % ( Manual) 0, Band Neutrophils 0, Platelet Estimate Adequate, Platelet Morphology , Clumped Platelets Occasional, Microcytosis 1+, Sodium Level 137, Potassium Level 4.7, Chloride Level 94L, Carbon Dioxide Level 28, Anion Gap 15, Blood Urea Nitrogen 51H, Creatinine 1.6H, Estimat Glomerular Filtration Rate 44.6, Glucose Level 326H, Calcium Level 9.6, Total Bilirubin 0.6, Aspartate Amino Transf (AST/SGOT) 10, Alanine Aminotransferase (ALT/SGPT) 7, Alkaline Phosphatase 51, Total Protein 7.0, Albumin 3.9, Globulin 3.1, Albumin/Globulin Ratio 1.2 Height (Feet): 5 Height (Inches): 6.00 Weight (Pounds): 142 EENT: normal ENT inspection Neck: normal alignment Cardiovascular: normal rate, regular rhythm Respiratory/Chest: lungs clear Abdomen: non tender, soft Extremities: other - no edema, r bka 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
[2017-06-11] MEDS: Tamsulosin 0.4mg cap ORAL SCH (21:42)
[2017-06-12 00:03] VITALS: BP 141/77
[2017-06-12] MEDS ORDERED: NovoLOG Insulin Flexpen SUBQ ONE (01:30)
--- NOTE | 2017-06-12 03:30 | Progress Note ---
DATE: 06/11/2017 CARDIOLOGY PROGRESS NOTE SUBJECTIVE: The patient had elevated glucose levels. The patient has less shortness of breath. He continues on IV diuretic therapy. OBJECTIVE: VITAL SIGNS: Blood pressure 141/45, pulse 63, and respirations 20. NECK: Jugular venous pressure is normal. LUNGS: Clear breath sounds. CARDIAC: Regular rhythm and rate. Normal S1 and S2 with a fourth heart sound. ABDOMEN: Soft. EXTREMITIES: No edema. Right BKA. LABORATORY DATA: Sodium 137, potassium 4.7, bicarbonate 28, BUN 51, creatinine 1.6, and glucose 326. White count 3.3 and hemoglobin 11.2. IMPRESSION: 1. Acute on chronic diastolic congestive heart failure. 2. Ischemic cardiomyopathy. 3. Paroxysmal atrial fibrillation. 4. History of deep vein thrombosis. 5. Acute renal transplant. 6. Insulin-requiring diabetes mellitus. 7. Cerebrovascular disease with seizure disorder. PLAN: 1. Continue diuresis. 2. Advance insulin. 3. Transition to oral therapy over the next 24 to 48 hours. 4. Titrate antihypertensive and anti-failure regimen. 5. Maintain anticoagulation. 6. Monitor for signs of bleeding complications. Armando Lerma M.D. DR: ADE JOB#: [id number] CC:
[2017-06-12 04:00] VITALS: BP 148/80
[2017-06-12] MEDS: NovoLOG Insulin Flexpen SUBQ SCH ×3 (06:37→16:52)
[2017-06-12 08:11] VITALS: BP 141/78
[2017-06-12] MEDS: Mycophenolate 250mg cap ORAL SCH (09:12)
[2017-06-12] MEDS: Docusate 100mg cap ORAL SCH ×2 (09:12→17:16)
[2017-06-12] MEDS: Aspirin EC 81mg tab ORAL SCH (09:13)
[2017-06-12] MEDS: Eliquis 2.5mg tablet ORAL SCH ×2 (09:14→17:17)
[2017-06-12] MEDS: cycloSPORINE 25mg cap ORAL SCH (09:16)
[2017-06-12] MEDS: Lyrica 50mg cap ORAL SCH ×2 (09:17→17:16)
[2017-06-12] MEDS: Metoprolol 25mg tab ORAL SCH (09:17)
[2017-06-12] MEDS: Imdur 30mg tab ORAL SCH (09:17)
[2017-06-12] MEDS: PredniSONE 5mg tab ORAL SCH (09:18)
[2017-06-12] MEDS: Levemir Flexpen SUBQ SCH ×2 (09:32→17:20)
[2017-06-12 10:14] LABS: ALBUMIN/GLOBULIN RATIO 1.1 (1.0-2.7); CALCIUM 10.9 mg/dL (8.6-10.2); CREATININE 1.7 mg/dL (0.7-1.2); GLOMERULAR FILTRATION RATE 41.6 mL/min (>60); POTASSIUM 4.7 mEQ/L (3.4-4.9)
[2017-06-12 12:07] VITALS: BP 118/73
[2017-06-12 15:34] VITALS: BP 128/67
--- NOTE | 2017-06-12 17:25 | Nephrology Progress Note ---
Assessment/Plan Problem List: (1) Status post kidney transplant (2) CKD stage 3 secondary to diabetes (3) CHF exacerbation (4) Seizure (5) Hypertension Plan monitor renal function while on iv lasix, cyclosporin 100 bid adjusted bun and creatinine might increase with diuresis Subjective Constitutional: Reports: weakness HEENT: Reports: no symptoms Genitourinary: Reports: incontinence Neurologic/Psychiatric: Reports: pre-existing deficit Objective Objective Last 24 Hour Vital Signs Date Time Temp Pulse Resp B/P Pulse Ox O2 Delivery O2 Flow Rate FiO2 06/12/17 15:34 97.7 64 18 128/67 100 Nasal Cannula 2.0 06/12/17 12:07 97.3 65 20 118/73 98 Nasal Cannula 2.0 06/12/17 12:00 66 06/12/17 09:18 72 141/78 06/12/17 09:17 72 141/78 06/12/17 09:17 141/78 06/12/17 08:11 97.2 72 20 141/78 100 Nasal Cannula 2.0 06/12/17 08:10 Nasal Cannula 2.0 06/12/17 08:10 98 Nasal Cannula 2.0 06/12/17 08:00 70 06/12/17 04:00 97.7 64 20 148/80 2 Nasal Cannula 06/12/17 04:00 64 06/12/17 00:03 97.2 67 20 141/77 98 Nasal Cannula 2.0 06/12/17 00:00 68 06/11/17 21:10 99 Nasal Cannula 2.0 06/11/17 21:10 Nasal Cannula 2.0 06/11/17 20:10 97.9 70 20 130/76 98 Nasal Cannula 2.0 06/11/17 20:00 67 Intake and Output 06/11/17 06/12/17 19:00 07:00 Intake Total 360 ml Output Total 1000 ml 700 ml Balance -640 ml -700 ml Intake Oral 360 ml Output Urine Total 1000 ml 700 ml # Bowel Movements 2 1 Laboratory Tests 06/12/17 09:35: Sodium Level 135, Potassium Level 4.7, Chloride Level 95L, Carbon Dioxide Level 28, Anion Gap 12, Blood Urea Nitrogen 51H, Creatinine 1.7H, Estimat Glomerular Filtration Rate 41.6, Glucose Level 334H, Calcium Level 10.9H, Total Bilirubin 0.4, Aspartate Amino Transf (AST/SGOT) 12, Alanine Aminotransferase (ALT/SGPT) 5 , Alkaline Phosphatase 49, Total Protein 7.0, Albumin 3.7, Globulin 3.3, Albumin /Globulin Ratio 1.1 Height (Feet): 5 Height (Inches): 6.00 Weight (Pounds): 142 General Appearance: no apparent distress, alert EENT: normal ENT inspection Neck: normal alignment Cardiovascular: normal rate, regular rhythm Respiratory/Chest: lungs clear Abdomen: soft, no organomegaly Extremities: other - no edema 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
[2017-06-12 20:00] VITALS: BP 121/68
--- NOTE | 2017-06-13 03:45 | Progress Note ---
June 12, 2017 CARDIOLOGY PROGRESS NOTE SUBJECTIVE: The patient has no shortness of breath. No chest pain. Monitored rhythm sinus rare atrial ectopics. OBJECTIVE: VITAL SIGNS: Blood pressure 128/67, pulse 64, and respiratory rate 18. LUNGS: Good breath sounds. No wheezing. HEART: Regular rhythm and rate. Normal S1 and S2 with a fourth heart sound. ABDOMEN: Soft. Transplant site on the right abdomen area is soft. EXTREMITIES: Without edema. 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 LABORATORY DATA: Potassium 4.7, BUN 51, and creatinine 1.7. Albumin is 3.7. IMPRESSION: 1. Acute on chronic diastolic congestive heart failure, improved. 2. Chronic kidney disease stable. 3. History of renal transplant. 4. Paroxysmal atrial fibrillation. 5. History of deep vein thrombosis. 6. Cerebrovascular disease. 7. Seizure disorder. PLAN: 1. Transition from IV to oral diuretics. 2. Continue current anti-failure and antihypertensive regimen. 3. Monitor immunosuppressive therapy levels as an outpatient. 4. Continue long-term monitoring of cardiorenal parameters. Expect need for prerenal state in this clinical setting for long-term management of heart failure. Armando Lerma M.D. DR: ADE JOB#: [id number] CC: HELENA
--- NOTE | 2017-06-13 04:45 | Consultation ---
DATE OF CONSULTATION: June 09, 2017 CARDIOLOGY CONSULTATION REQUESTING PHYSICIAN: Osmani Caal M.D. REASON FOR CONSULTATION: Acute congestive heart failure. HISTORY OF PRESENT ILLNESS: This is a 56-year-old, male, who is status post renal transplant in 1997 and presented to the hospital with increasing shortness of breath with signs of congestive heart failure. The patient has been compliant with medications, but has had progressive leg swelling. No cough, sputum production, fevers or chills. No chest pain. 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 ALLERGIES: Penicillin. MEDICATIONS: Reviewed and reconciled. SOCIAL HISTORY: Former smoker. No alcohol abuse. No substance abuse. REVIEW OF SYSTEMS: No loss of hearing. No history of retinopathy. No thyroid disorder. Diabetes managed with insulin and with multiple complications. No current use of steroids, but has a history of chronic obstructive pulmonary disease. Recent echocardiogram revealed normal ejection fraction with concentric hypertrophy. No evidence of flow-limiting coronary disease by recent myocardial perfusion scan. He does have a history of gastritis. He has indwelling Gutierrez. He has been on anti-lipid drugs in the past. He does have chronic kidney disease following renal transplant. PHYSICAL EXAMINATION: GENERAL: Ill-appearing male, in no acute distress and afebrile. VITAL SIGNS: Blood pressure 123/65, pulse 63, respirations 20, and oxygen saturation on 2 liters is 93%. HEENT: Conjunctivae pink. Oropharynx clear. NECK: Supple. Jugular venous pressure elevated. LUNGS: With bibasilar rales. CARDIAC: Regular rhythm and rate. Normal S1 and S2 with a fourth heart sound. Point of maximal pulse sustained laterally displaced. ABDOMEN: Soft and nontender. Transplant site is without any tenderness. EXTREMITIES: Without edema. Right BKA stump clean and dry. Left transmetatarsal amputation is noted. IMAGING STUDIES: Chest x-ray, prior to admission revealed pulmonary edema. LABORATORY DATA: Reviewed. IMPRESSION: 1. Acute on chronic diastolic congestive heart failure. 2. Chronic kidney disease. 3. Renal transplant. 4. Hypertensive heart disease. 5. Paroxysmal atrial fibrillation. 6. History of deep vein thrombosis. 7. Insulin-requiring diabetes with multiple complications. PLAN: 1. Diuresis with intravenous loop diuretic. 2. Cardiac monitoring. 3. Monitor electrolytes and cardiorenal parameters and adjust therapy accordingly. 4. Respiratory hygiene. 5. Watch for bronchospasm as needed bronchodilators by inhalation. 6. Continue full anticoagulation with Eliquis. 7. We will follow closely due to multiple comorbidities and high risk for decompensation. Armando Lerma M.D. DR: ADE JOB#: [id number] CC: HELENA
--- NOTE | 2017-06-13 07:00 | Discharge Summary ---
DATE OF ADMISSION: 06/09/2017 DATE OF DISCHARGE: 06/12/2017 ADMISSION DIAGNOSES: 1. Congestive heart failure exacerbation. 2. History of end-stage renal disease. 3. History of seizure disorder. 4. Diabetes. 5. Hypertension. 6. Peripheral artery disease. 7. History of the diabetic ketoacidosis. 8. History of kidney transplant. DISCHARGE DIAGNOSES: 1. Congestive heart failure exacerbation. 2. History of end-stage renal disease. 3. History of seizure disorder. 4. Diabetes. 5. Hypertension. 6. Peripheral artery disease. 7. History of the diabetic ketoacidosis. 8. History of kidney transplant. HISTORY OF PRESENT ILLNESS: This is a very pleasant male, who complains of shortness of breath. He was initially admitted to the outside hospital and transferred here for continuity of care. He was diagnosed with acute CHF exacerbation. He was aggressively diuresed. On discharge, he was doing well. He will be discharged back home with his sister. DISCHARGE MEDICATIONS: Please see discharge medication list for discharge medications. DIET: Diabetic/cardiac diet. FOLLOWUP: The patient will follow up in one to two weeks in the office. Osmani Caal M.D. DR: JOHN JOB#: [id number] CC:
== END 2017-06-12 20:20 | DRG 291 ==
LOC: 2E 19:27
DX: I13.0 Hypertensive heart and chronic kidney disease with heart failure and stage 1 through stage 4 chronic kidney disease, or unspecified chronic kidney disease (principal); I50.33 Acute on chronic diastolic (congestive) heart failure; E11.22 Type 2 diabetes mellitus with diabetic chronic kidney disease; E11.40 Type 2 diabetes mellitus with diabetic neuropathy, unspecified; Z94.0 Kidney transplant status; I48.0 Paroxysmal atrial fibrillation; G40.909 Epilepsy, unspecified, not intractable, without status epilepticus; E11.65 Type 2 diabetes mellitus with hyperglycemia; J44.9 Chronic obstructive pulmonary disease, unspecified; I73.9 Peripheral vascular disease, unspecified; Z89.511 Acquired absence of right leg below knee; Z89.422 Acquired absence of other left toe(s); Z86.73 Personal history of transient ischemic attack (TIA), and cerebral infarction without residual deficits; Z87.891 Personal history of nicotine dependence; Z86.718 Personal history of other venous thrombosis and embolism; Z88.0 Allergy status to penicillin; Z79.4 Long term (current) use of insulin; I25.5 Ischemic cardiomyopathy; N18.3 Chronic kidney disease, stage 3 (moderate)
CPT/HCPCS: 36415; 71010; 80053; 80299; 82962; 83735; 84484; 85007; 85025; 87081; 94760; J1815; J8499; S5561